=== PATIENT | female | born 1950 | race Caucasian/White ===

== ENCOUNTER 2023-09-11 16:40 | Inpatient (IN) | payer MEDICARE, SELFPAY ==
[2023-09-11] VITALS (9 sets, daily range): BP systolic 102–146; BP diastolic 53–89; PULSE 66; BMI 41.0; BMI 40.9
--- NOTE | 2023-09-11 13:25 | ED.GENMED ---
History of Present Illness
General
Chief Complaint: Breathing Problem
Source: patient
Exam Limitations: none
Time Seen by Provider: 09/11/23 13:04
Nursing documentation reviewed up to this point in time: agreed with
Travel History
Have you had any contact with someone who has COVID-19?: No
Do you have any symptoms of coronavirus? Fever > 100 degrees, chills, cough, shortness of breath, sore throat, loss of taste or smell, muscle aches, or headache?: No
History of Present Illness
History of Present Illness:
Patient is a 73-year-old female with history CHF, CAD, hypertension, hyperlipidemia, diabetes presenting to emergency department for evaluation. Patient reports worsening shortness of breath with exertion and an associated 20 pound weight gain over
the past month. She was seen by her primary care provider who increased her Lasix dose to 120 mg yesterday from 80 mg, but she continued to have a 2 pound weight increase from yesterday prompting her visit to the emergency department. She has
noticed increased swelling in her hands and feet. She also endorses a pressure in her chest that started earlier this morning but has been relatively constant since. She states it is present with rest and exertion, but slightly worse with exertion.
She denies any fever, chills, abdominal pain, urinary symptoms. She denies any sharp back pain, headache, pain in lower extremities.
Patient denies any history of smoking. Patient denies any alcohol use
Past History
Past History
ED Past Medical History: Asthma, Cancer (Lung), CVA, GERD, HTN, Hypercholesterolemia, IDDM and Other (DENNIS)
ED Past Surgical History: Cholecystectomy and Other (Lung resection)
Social History
Tobacco: Former smoker
Alcohol: None
Drug: None
Personal: Partner
Living: with family
Family History
Family History: Other (Noncontributory)
Phy Exam
Physical Exam
Physical Exam:
Vitals: Patient's vital signs are stable
General: Patient is well appearing, no acute distress
Skin: Warm and dry, no rashes or lesions
Head: Normocephalic, atraumatic
Eyes: Sclera nonicteric. EOMs intact. No nystagmus.
Cardiac: Regular rate and rhythm, no murmurs.
Pulm: Acceptable work of breathing, diminished breath sounds at bases, no wheezing, rales, rhonchi; O2 saturation 97 on room air
Abdomen: No abdominal tenderness, mild distention.
Extremities: No evidence of cyanosis; very mild nonpitting edema bilateral lower extremities, DP pulses palpable and equal bilaterally
Neuro: AAOx3. CN II-XII intact. No focal neurologic deficits.
Psychiatric: Normal affect.
Scores
Heart Failure Risk
Heart Failure Risk Score: Yes
History of Stroke or TIA: No
History of intubation for respiratory distress: No
Heart rate on ED arrival >/= 110: No
SaO2 <90% on arrival on room air: No
HR >/=110 during 3min walk test (or too ill to perform test): No
ECG has acute ischemic changes: No
Urea >/=12mmol/L (BUN 33.6mg/dL): No
Serum CO2>/=35mmol/L: No
Troponin I or T elevated to [place] Level (0.4mg/dL): No
NT-proBNP >/=5,000ng/L (5,000pg/ml): No
HF Risk Score: 0
Admission Status: LOW RISK 2.8% Consider discharge to home with f/u visit to PCP/Route Agent
Heart Score for Chest Pain Patients
STEMI patient?: No
History: Moderately Suspicious
ECG: Normal
Age: >/= 65 years
Risk Factors: >/= 3 Risk Factors or History of CAD
Troponin: >1 - <3 x Normal Limit
Heart Score for Chest Pain Patients: 6
Heart Score Risk: 20.3% MACE over next 6 weeks
Course
Orders/Labs/Results
Orders:
Orders
09/11/23 12:50
Electrocardiogram (*1) Urgent
Reason for Study: Chest Pain
Cardiac Monitoring- Treatment ONCE
EKG- Treatment ONCE
IV Insert/Care/Rem.- Treatment PRN
O2 Therapy [RESP] Urgent
Titrate/Wean O2 to maintain O2 sat greater than (%): 90
Special Instructions: Maintain sats >/=90%
Pulse Ox/spot Check [RESP] Urgent
Quantity: 1
Special Instructions: ON ROOM AIR
09/11/23 13:15
Complete Blood Count/With Diff Urgent
Comprehensive Metabolic Panel Urgent
NT-proBNP Urgent
Comment: ADDED
Troponin I Urgent
09/11/23 13:22
Add On- LAB Urgent
Tests Added?: pro-BNP
CR Chest - 2 Views Urgent
Comment:
Reason For Exam: dyspnea on exertion, weight gain, chest pain
09/11/23 14:47
Troponin I Urgent
09/11/23 14:49
Consult Cardiology [CARDIOLOGY CONSULT] Urgent
Consulting Provider: Maximo Singh
Was physician already notified: Yes
09/11/23 Dinner
Cholesterol Lowering
At Your Request: Full Participation
Cholesterol Lowering: Sodium, 2 Gram
09/11/23 15:20
Furosemide [Lasix] 40 mg IV NOW STA
09/11/23 15:21
Echo 2D MMode Color/Doppler Routine
Reason for Study: CHF, CP
09/11/23 16:30
Admit/Transfer Patient As Directed
Co-Sign Provider:
Level of Care: Inpatient admission
Assign to:: IVU
Physician / Group: alberto
Diagnosis: CHF exacerbation, possible NSTEMI
Reason for Hospitalization: CHF exacerbation, possible NSTEMI
Expected length of stay greater than two midnights?: Yes
ELOS- Estimated Length of Stay in days: 2
I certify the patient meets the requirements for IP care: Yes
09/11/23 16:31
Code Status As Directed
Resuscitation Status: Full Code
09/11/23 20:00
Dextrose 50%-Water [Dextrose 50% Syringe] 12.5 grams IV [id number] PRN
Glucagon [GlucaGen] 1 mg IM PRN PRN
Heparin 5,000 units SC Q12
Lisinopril [Zestril] 5 mg PO QPM
Nitroglycerin Sublingual [Nitrostat (Sublingual)] 0.4 mg SL [id number] PRN
09/11/23 20:00
Activity As Directed
Activity Level: As Tolerated
Bedside Glucose Monitoring As Directed
Frequency: AC&HS
Additional Instructions:: Change to q6h if pt on TPN, tube feeding or not eating
I/O [Intake/ Output] As Directed
Frequency: q12h
Vital Signs As Directed
Frequency: Per unit guidelines
Weight As Directed
Frequency: Daily
DX Deep Vein Thrombosis Video Routine
09/11/23 20:35
Cardiovascular Evaluation Routine
Troponin I Q6H
09/11/23 21:00
Metoprolol [Lopressor] 12.5 mg PO BID
09/11/23 22:00
Atorvastatin [Lipitor] 40 mg PO HS
Gabapentin [Neurontin] 600 mg PO TID
Pramipexole [Mirapex] 0.25 mg PO HS
09/12/23 02:00
Troponin I Q6H
09/12/23 06:00
Complete Blood Count/With Diff IN AM
Comprehensive Metabolic Panel IN AM
Glycohemoglobin (HgbA1c) IN AM
09/12/23 07:30
Insulin Aspart Corrective Low [Novolog Flexpen-Low Resistance] See Protocol SC AC
Insulin Aspart Pen [Novolog Flexpen] 30 units SC AC
09/12/23 08:00
Troponin I Q6H
Aspirin Chewable [Low Strength Aspirin] 81 mg PO DAILY
Clopidogrel Bisulfate [Plavix] 75 mg PO DAILY
Escitalopram Oxalate [Lexapro] 20 mg PO DAILY
Furosemide [Lasix] 40 mg IV BID AT 0800,1600
ISOSORBIDE MONOnitrate ER [Imdur (Extended Release)] 60 mg PO DAILY
Non-Formulary Item See Dose Instructions PO DAILY
Abnormal Lab Results
09/11/23 09/11/23
13:15 14:47
RDW 15.1 H %
(11.5-14.5)
MPV 10.8 H fL
(7.4-10.4)
Absolute Monos (auto) 0.8 H 10^3/uL
(0.1-0.6)
BUN 19 H mg/dl
(7-17)
Glucose 179 H mg/dl
(70-99)
Alkaline Phosphatase 158 H U/L
(38-126)
Troponin I 0.053 H* D ng/ml
09/11/23 13:15
09/11/23 13:15
Vital Signs
Initial and Last Documented VS:
Initial Vital Signs
Temp Pulse Resp BP Pulse Ox
98.6 F 70 16 102/53 97
09/11/23 12:50 09/11/23 12:50 09/11/23 12:50 09/11/23 12:50 09/11/23 12:50
Last Documented Vital Signs
Temp Pulse Resp BP Pulse Ox
98.0 F 72 20 130/63 96
09/11/23 20:07 09/11/23 21:40 09/11/23 20:07 09/11/23 21:40 09/11/23 20:07
MDM/Problems Addressed
Differential Diagnosis Includes:
Not limited to: CHF exacerbation, anemia, pneumonia, COPD, bronchitis, pulmonary embolism, ACS
MDM/Problems Addressed:
Patient is 73-year-old female presenting for evaluation of shortness of breath, recent weight gain, and acute onset chest pressure earlier today. Recent increase in Lasix with very continued increase in weight. Chest pain is present both at rest
and exertion, but slightly worse with exertion. Patient does report pain is similar to when she needed prior stent. Vital signs are stable, patient with O2 saturation of 97 on room air. Exam as above. Somewhat diminished breath sounds at bases,
but otherwise clear. Will check basic labs, troponin, proBNP, chest x-ray. EKG obtained in triage shows normal sinus rhythm without any signs of acute ischemia. Given patient's comparison to prior [facility] consult cardiology for input.
Labs noted. No clinically significant abnormalities. Initial troponin negative. proBNP of 526�not indicative of acute heart failure exacerbation. Chest x-ray shows no evidence of pulmonary edema or acute disease. Will plan to repeat troponin
given acute onset chest pain this morning.
Spoke with cardiology, Dr. Arguello, who evaluated patient at bedside. They recommend admission for continued monitoring and possible cardiac catheterization on Thursday. Repeat troponin has elevated to 0.053. Patient will be admitted to hospitalist
service, cardiology will follow-up. Discussed with hospitalist.
Chronic conditions affecting care:
CAD status post stents, CHF, hypertension, hyperlipidemia,
Acute Exacerbation and/or Progression of Chronic Illness:
Chest pain secondary to possible NSTEMI
*Radiology
Radiology exam reviewed: preliminary read by ED provider and radiology read reviewed
*Pulse Oximetry
Patient hypoxic: no
*EKG
Interpreted by ED Provider?: Yes
EKG Intrepretation Date: 09/11/23
Interpretation: normal
Comparison EKG: no changes
Heart Rate: 67
Rate: normal
Rhythm: sinus
Ischemia: no ischemia
*Critical Care Note
Total Time (30-74mins, 75-104mins- exclusive of procedures): Not Applicable
Data Reviewed
Review of Other/Old Records Reveals: Labs and Records
Source: previous hospital records
Patient Management
Discussion with other providers: Relays Draftsperson (Cardiology-Dr. Singh)
Escalation/DeEscalation of care consider admission/obs:
Admit to hospitalist for further troponin trending and likely cardiac catheterization on Thursday
ED Attending Note
-
Portions of this chart may have been created with voice recognition software.� Occasional wrong word or��sound alike� substitutions may have occurred due to the inherent limitations of voice recognition software.
Discharge Plan
Departure
Patient Disposition: Admit
Date of Disposition: 09/11/23
Time of Disposition: 15:37
Presentation/result/management discussed w/ accepting MD/DO: Hospitalist
Discharge Problem:
Elevated troponin, Chest pain
Interventions
Interventions:
*Risk Screen - Suicide Last Done: 09/11/23 12:59
*General Assessment Last Done: 09/11/23 12:59
*Neglect/Abuse Screening Last Done: 09/11/23 12:59
ED- Fall Risk Assessment Last Done: 09/11/23 13:01
*ED COVID-19 Vaccine History Last Done: 09/11/23 12:59
*Nursing Disposition Last Done: 09/11/23 20:58
ED- Cardiac Assessment Last Done: 09/11/23 13:01
ED- Pulmonary Assessment Last Done: 09/11/23 13:01
Discharge Date and Time
Discharge Date/Time: 09/11/23 20:59
[2023-09-11 13:30] LABS: % Basophils 0.8 % (0-2); % Eosinophils 3.5 % (0-6); % Immature Granulocytes 0.3 % (0-0.5); % Lymphocytes 29.7 % (20.5-51.1); % Monocytes 7.8 % (1.7-9.3); % Neutrophils 57.9 % (42.2-75.2); Absolute Basophils 0.1 10^3/uL (0-0.2); Absolute Eosinophils 0.4 10^3/uL (0-0.7); Absolute Lymphocytes 3.2 10^3/uL (1.2-3.4); Absolute Monocytes 0.8 10^3/uL (0.1-0.6); Absolute Neutrophils 6.3 10^3/uL (1.4-6.5); Hematocrit 40.6 % (37.0-47.0); Hemoglobin 13.7 g/dL (12.0-16.0); Mean Corp Hgb Conc. 33.7 g/dL (33.0-37.0); Mean Corpuscular Hgb 29.8 pg (27.0-31.0); Mean Corpuscular Volume 88.3 fL (81.0-99.0); Mean Platelet Volume 10.8 fL (7.4-10.4); Nucleated Red Blood Cells % 0 %; Platelet Count 241 10^3/uL (130-400); Red Cell Dist. Width 15.1 % (11.5-14.5); White Blood Cell Count 10.8 10^3/uL (4.8-10.8)
[2023-09-11 13:42] LABS: ALT (SGPT) 28 U/L (0-35); AST (SGOT) 29 U/L (14-36); Albumin 4.4 g/dl (3.5-5.0); Alkaline Phosphatase 158 U/L (38-126); Blood Urea Nitrogen 19 mg/dl (7-17); Calcium 9.1 mg/dl (8.4-10.2); Carbon Dioxide 29 mmol/L (22-30); Chloride 101 mmol/L (98-107); Estimated Creatinine Clearance 69 ml/min; Glucose 179 mg/dl (70-99); Sodium 137 mmol/L (135-145); Total Bilirubin 0.6 mg/dl (0.2-1.3); Total Protein 7.3 g/dl (6.3-8.2); eGFR > 60.00
[2023-09-11 13:56] LABS: NT-proBNP 526 pg/ml; Troponin I < 0.012 ng/ml
--- NOTE | 2023-09-11 15:20 | CON.CAR ---
Addendum entered and electronically signed by Maximo Singh MD 09/11/23 17:49:
I saw and examined the patient.
The Meat Loiner's note was reviewed and I agree with the note.
Comment:
GEN: No distress, awake, Ox3
HEENT: supple, anicteric, mmm
LUNGS: CTA, no wheezes/rales
CV: Reg, S1/S2, 1/6 syst LSB, no gallop
ABD: soft, BS+, NT/ND
EXT: No edema
NEURO: Gross non-focal
SKIN: No rash
Plan:
She is well-known to me with a past medical history of chronic heart failure with preserved ejection fraction, coronary artery disease, previous RCA dissection status post PCI, diabetes, hypertension and COPD. She has had progressive weight gain of
approximately 20 pounds over the past several months with worsening chest discomfort with exertion. Symptoms were worse this morning. At recent office visit her Imdur dose was increased from 30 mg daily to 60 mg daily and a Lexiscan nuclear stress
was scheduled as an outpatient but her symptoms have progressed. Her Lasix was also increased from 40 mg twice daily to 60 mg twice daily. She says she has had some improvement with these medications but her symptoms continue to progress. proBNP
526 and troponin is rising to 0.053.
I had a lengthy discussion with her. Her symptoms seem concerning and her troponin is rising. Her EKG has nonspecific T wave abnormalities.
We agreed that she should come into the hospital and start Lasix 40 mg IV twice daily to try to diurese her. Creatinine is currently normal. Will need to follow.
I would recommend proceeding with a right and left heart catheterization on Thursday after diuresis.
Continue medical therapy for coronary artery disease. Continue aspirin, Plavix, atorvastatin, Imdur, metoprolol, and lisinopril.
We may need to further titrate her metoprolol. Resting heart rate currently is in the 60-70 range.
Original Note:
Consultation
Consultation Request
Date/Time Consultation Performed: 09/11/23
Requesting Provider: Tamara Real PA-C
Performing Provider: Xin Cerda PA-C for Dr. Singh
Reason for Consultation: CHF, CP
Medical History
-
Chief Complaint: CP, swelling
History of Present Illness:
Patient is a 73-year-old female with past medical history of chronic heart failure with preserved EF, CAD with most recent cath 01/2022 with moderate to severe diffuse coronary artery calcification at least 50% proximal RCA stenosis with got induced
proximal RCA dissection status post PCI, diabetes type 2, hypertension, hyperlipidemia, history of lung cancer, COPD/asthma who presents to [facility] for evaluation of weight gain, swelling, and chest discomfort. She states that over the
last month if accurate she has gained approximately 20 pounds. She states on 08/10 she was 188 pounds by her home scale. She also reports worsening lower extremity and upper extremity swelling. She reports orthopnea and dyspnea on exertion. She
also reports chest discomfort with exertion, including things like getting dressed in the morning. She was seen last week in the office and had reported some of the symptoms and her Imdur dose was increased from 30 a day to 60 a day and she was
scheduled for lexiscan stress test on 10/08/23. She was then seen by her primary care physician and her Lasix was increased from 40 mg twice daily to 60 mg twice daily. She reports with this she had some improvement in swelling, however gained
another 2 pounds overnight and she came into the emergency room for further evaluation. EMS gave her nitro x 1 en route, which she states did help her chest discomfort. proBNP 526. Cardiology consulted for evaluation
PMH:
CAD with mod to severe diffuse coronary artery calcification, at least 50% prox RCA stenosis, guide induced prox RCA dissection s/p PCI by cath 01/29/22
Iron def anemia
chronic HFpEF
DM2
Peripheral neuropathy
Diabetic retinopathy
HTN
HLD
h/o lung cancer s/p RML and RLL resection in 07/1999
former tobacco use
COPD/asthma
DENNIS on CPAP
depression/anxiety
GERD
Calcific pancreatitis
essential tremor
PVD RLE
Obesity
Past Medical History
Past Medical History: Other (in HPI)
Social History
Tobacco: Former Smoker
Employment: Retired
Family History
Family History: CAD, Cancer, Hypertension and Other (COPD)
Allergies / Home Medications
Allergy/AdvReac Type Severity Reaction Status Date / Time
azithromycin Allergy See Verified 07/10/22 15:45
comments
codeine Allergy vomiting Verified 07/10/22 15:45
omeprazole Allergy fever and Verified 07/10/22 15:45
joint aches
propranolol Allergy Shortness Verified 07/10/22 15:45
of
Breath/tight
chest, SOB
�Medication �Instructions �Recorded �Confirmed �Type
escitalopram oxalate 20 mg tablet 20 mg PO DAILY Mental health 11/30/15 01/28/22 History
dexlansoprazole 30 mg 60 mg PO DAILY Gastrointestinal 04/04/17 01/28/22 History
capsule,biphase delayed release issue
(Dexilant)
albuterol sulfate 90 mcg/actuation 2 puff inhalation R Q6HPRN PRN sob 08/01/21 01/28/22 History
aerosol inhaler
aspirin 81 mg chewable tablet 81 mg PO DAILY Blood clot 08/01/21 01/28/22 History
prevention/tx
baclofen 10 mg tablet 10 mg PO [id number] PRN muscle spasm 08/01/21 01/28/22 History
lisinopril 5 mg tablet 5 mg PO DAILY Blood pressure 08/01/21 01/28/22 History
primidone 50 mg tablet 100 mg PO HS Neurological Condition 08/01/21 01/28/22 History
furosemide 40 mg tablet 40 mg PO BID AT 0800,1600 #60 tabs 08/09/21 01/28/22 Rx
gabapentin 400 mg capsule 400 mg PO TID Pain 09/19/21 01/28/22 History
albuterol sulfate 90 mcg/actuation 2 puff inhalation 6XD 01/28/22 01/28/22 History
aerosol inhaler (ProAir HFA) Lung/breathing issues
atorvastatin 40 mg tablet 40 mg PO HS High cholesterol 01/28/22 01/28/22 History
cholecalciferol (vitamin D3) 25 25 mcg PO DAILY Supplement 01/28/22 01/28/22 History
mcg (1,000 unit) tablet (Vitamin
D3)
fluticasone furoate 200 1 inh inhalation DAILY 01/28/22 01/28/22 History
mcg-vilanterol 25 mcg/dose Lung/breathing issues
inhalation powder (Breo Ellipta)
nitroglycerin 0.4 mg sublingual 0.4 mg sublingual Q5-15M PRN chest 01/28/22 01/28/22 History
tablet pain
pramipexole 0.25 mg tablet 0.25 mg PO DAILY Neurological 01/28/22 01/28/22 History
Condition
primidone 50 mg tablet 50 mg PO DAILY Neurological 01/28/22 01/28/22 History
Condition
vitamin B12 2,500 mcg-folic acid 1,000 tab PO DAILY Supplement 01/28/22 01/28/22 History
400 mcg disintegrating tablet
Insulin Glargine Lantus As Directed mls/hr SC HS Diabetes 02/01/22 Rx
[Lantus] 55 units
clopidogrel 75 mg tablet 75 mg PO DAILY Blood clot 02/01/22 Rx
prevention/tx #30 tabs
empagliflozin 10 mg tablet 10 mg PO DAILY Heart Failure #30 02/01/22 01/28/22 Rx
(Jardiance) tabs
insulin aspart U-100 100 unit/mL 16 unit (0.16 mL) SC TID Diabetes 02/01/22 01/28/22 Rx
subcutaneous solution (Novolog #0 mL
U-100 Insulin aspart)
isosorbide mononitrate 30 mg 30 mg PO DAILY Heart 02/01/22 01/28/22 Rx
tablet,extended release 24 hr disease/condition #30 tabs
metoprolol tartrate 25 mg tablet 25 mg PO BID Heart 02/01/22 Rx
disease/condition #60 tabs
Review of Systems
-
History Source: Patient and Family
All other systems: Negative unless noted
Physical Exam
Vital Signs
Temp Pulse Resp BP Pulse Ox
98.6 F 70 16 102/53 97
09/11/23 12:50 09/11/23 12:50 09/11/23 12:50 09/11/23 12:50 09/11/23 13:01
Lab Results
09/11/23 13:15
09/11/23 13:15
Troponin I < 0.012 ng/ml 09/11/23 13:15
Fqa-[id number] Pept 526 pg/ml 09/11/23 13:15
Physical Exam
General: No Apparent Distress, Comfortable and Other (obese)
HEENT: Normocephalic, Anicteric and Moist Mucous Membranes
Respiratory: Crackles and Non Labored Respirations
Cardiac: S1/S2 and Regular Rhythm
GI: Soft, Non Tender, Non Distended and Normal Bowel Sounds
Musculoskeletal: No Clubbing, No Cyanosis and Edema (trace of B/L LE)
Skin: Warm and Dry
Neuro: AO x 3
Impression / Plan
-
Primary Sign Installer: Dr. Singh
Assessment:
Presentation with chest discomfort, UE/LE swelling, ARCOS, weight gain
Acute on chronic HFpEF
Elevated troponin
CAD with mod to severe diffuse coronary artery calcification, at least 50% prox RCA stenosis, guide induced prox RCA dissection s/p PCI by cath 01/29/22
DM2
Peripheral neuropathy
Diabetic retinopathy
HTN
HLD
Iron def anemia
h/o lung cancer s/p RML and RLL resection in 07/1999
former tobacco use
COPD/asthma
DENNIS on CPAP
depression/anxiety
GERD
Calcific pancreatitis
essential tremor
PVD RLE
Obesity
ECHO 01/2022: EF 65 to 70%, no regional wall motion abnormalities noted, no significant valvular disease
Plan:
-Patient presents with symptoms concerning for acute on chronic heart failure. She has had recent escalation in her diuretics with continued weight gain. proBNP 526. Chest x-ray with prior lobectomy without acute superimposed processes noted.
-will give dose of IV lasix 40mg now. would plan to place on 40mg IV lasix BID on admission. she was taking 40mg po lasix BID until yesterday when dose was increased to 60mg BID by PCP
-CHF education. she reports no recent changes in diet to explain reported 20 pound weight gain in last month. states weight 08/10 was 188 pounds.
-also reports chest discomfort with exertion. last cath from 01/2022 with results as above, resulted in RCA PCI. EKG SR with NSSTS. initial trop negative but repeat 0.053, trend to peak. nitro x1 by EMS improved symptoms. would plan for L/RHC on
Wednesday 09/13. OP imdur was increased from 30 to 60mg daily at office visit last week. will cancel OP sheree scheduled for 10/07
-continue asa, plavix, statin
-continue imdur, jardiance, lopressor, lisinopril as BP allows
-check echo, last from 01/2022 with results as above
-check CVE, hgbA1c
-d/w patient and sister at bedside
Data Reviewed
-
EKG: Tracing Personally Visualized and interpreted
Radiology: Report Reviewed by me
Medical Tests (Nuc Med, Echo etc): Report Reviewed by me
Labs: Labs Reviewed by me
Old Records: Reviewed
[2023-09-11 15:29] LABS: Troponin I 0.053 ng/ml
[2023-09-11] MEDS: LASIX 40 MG IV (16:12)
--- NOTE | 2023-09-11 16:34 | HPS.HSE ---
Family Physician
-
Family Physician: Jeannine Marte
Chief Complaint
-
chest pain
History of Present Illness
73-year-old female past medical history of coronary artery disease, HFpEF, hypertension, hyperlipidemia, diabetes, peripheral neuropathy, diabetic retinopathy, COPD, obstructive sleep apnea, lung cancer status post right middle lobe lobectomy and
right lower lobe lobectomy in 1999, lumbar degenerative disease, chronic anemia/iron deficiency, obesity, anxiety/depression, GERD, essential tremor, peripheral vascular disease, presenting for weight gain, lower extreme edema and chest discomfort.
Patient gained 25 pounds in the past month. Patient has shortness of breath when she lies flat and with exertion over the past month. She saw Dr. Singh last week who increased Imdur from 30-60. Patient saw her primary care physician who
increased her Lasix from 40 twice daily to 60 twice a day yesterday with a little bit improvement in swelling.
Today patient developed chest discomfort described as pressure. Pain occurs at rest but is worse with exertion. Pain does not radiate to arms or back or neck. Patient does have chronic cough which is slightly worse than usual and dry. Patient
denies fevers or chills.
Patient denies smoking or alcohol use.
Patient's father had history of heart attack.
Medical History
Past Medical History
Past Medical History: Reports Other (coronary artery disease, HFpEF, hypertension, hyperlipidemia, diabetes, peripheral neuropathy, diabetic retinopathy, COPD, obstructive sleep apnea, lung cancer status post right middle lobe lobectomy and right
lower lobe lobectomy in 1999, lumbar degenerative disease, chronic anemia/iron deficiency,)
Past Surgical History: Reports Other (Cholecystectomy and Other (Lung resection))
Social History
Tobacco: Non-smoker
Alcohol: None
Drug: None
Family History
Family History: Not pertinent
Allergies / Home Medications
Allergies reflects when Allergies were last updated in [employer].
Home Medications with original date entered in [employer]
Allergy/Medication List:
Allergies
Allergy/AdvReac Type Severity Reaction Status Date / Time
azithromycin Allergy See Verified 07/10/22 15:45
comments
codeine Allergy vomiting Verified 07/10/22 15:45
omeprazole Allergy fever and Verified 07/10/22 15:45
joint aches
propranolol Allergy Shortness Verified 07/10/22 15:45
of
Breath/tight
chest, SOB
Home Medications
escitalopram oxalate 20 mg tablet 20 mg PO DAILY Mental health 11/30/15
dexlansoprazole 30 mg capsule,biphase delayed release (Dexilant) 60 mg PO DAILY Gastrointestinal issue 04/04/17
aspirin 81 mg chewable tablet 81 mg PO DAILY Blood clot prevention/tx 08/01/21
lisinopril 5 mg tablet 5 mg PO QPM Blood pressure 08/01/21
atorvastatin 40 mg tablet 40 mg PO HS High cholesterol 01/28/22
nitroglycerin 0.4 mg sublingual tablet 0.4 mg sublingual [id number] PRN chest pain 01/28/22
pramipexole 0.25 mg tablet 0.25 mg PO HS Neurological Condition 01/28/22
clopidogrel 75 mg tablet 75 mg PO DAILY Blood clot prevention/tx #30 tabs 02/01/22
furosemide 40 mg tablet 40 mg PO BID 09/11/23
gabapentin 600 mg tablet 600 mg PO TID 09/11/23
insulin aspart U-100 100 unit/mL subcutaneous solution (Novolog U-100 Insulin aspart) 30 unit SC TID Diabetes 09/11/23
insulin glargine 100 unit/mL (3 mL) subcutaneous pen (Lantus Solostar U-100 Insulin) 45 unit SC QPM 09/11/23
isosorbide mononitrate 30 mg tablet,extended release 24 hr 60 mg PO DAILY Heart disease/condition 09/11/23
metoprolol tartrate 25 mg tablet 12.5 mg PO BID Heart disease/condition 09/11/23
Review of Systems
-
History Source: Patient
A 12 point ROS was completed and negative except as noted: Yes
Constitutional: Reports No Symptoms
EENT: Reports No Symptoms
Respiratory: Reports See HPI
Cardiac: Reports See HPI
Abdomen/GI: Reports No Symptoms
: Reports No Symptoms
Musculoskeletal: Reports No Symptoms
Skin: Reports No Symptoms
Neurological: Reports No Symptoms
Endocrine: Reports No Symptoms
Hematologic/Lymphatic: Reports No Symptoms
Psych: Reports No Symptoms
Physical Exam
Vital Signs
Vital Signs
Temp Pulse Resp BP Pulse Ox
98.6 F 66 18 102/53 96
09/11/23 12:50 09/11/23 13:30 09/11/23 13:30 09/11/23 12:56 09/11/23 13:30
Physical Exam
General: Well Developed, Well Nourished and No Apparent Distress
HEENT: NormoCephalic, Moist mucous membranes and Atraumatic
Respiratory: Clear
Cardiac: S1/S2, Regular Rhythm and Peripheral Edema; No Murmur or Rub
GI: Soft, Non Tender, Non Distended and Normal Bowel Sounds; No Organomegaly
Rectal: Deferred by Provider
Musculoskeletal: No Clubbing, No Cyanosis and No Edema
Skin: No Rash
Neuro: Nonfocal/grossly intact
Laboratory Results
-
09/11/23 13:15
09/11/23 13:15
Laboratory Results
Total Bilirubin 0.6 mg/dl (0.2-1.3) 09/11/23 13:15
AST 29 U/L (14-36) 09/11/23 13:15
ALT 28 U/L (0-35) 09/11/23 13:15
Alkaline Phosphatase 158 U/L (38-126) H 09/11/23 13:15
Troponin I 0.053 ng/ml H* D 09/11/23 14:47
Data Reviewed
-
Lab Data: Labs Reviewed by me
Old Records: Reviewed
Impression/Plan
-
IMPRESSION:
PLAN:
# Acute on chronic HFpEF exacerbation
-Chest x-ray shows no acute process
-Cardiac BNP of 526
-Check I's and O's, daily weights
-40 IV Lasix BID
-Check echo
-Cardiology following
# Chest pain possibly secondary to NSTEMI
# History of coronary artery disease with at least 50% proximal RCA stenosis
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
-Troponin initially negative, second is 0.053, continue to trend until peak
-EKG shows normal sinus rhythm, low voltage QRS
-Continue aspirin, Plavix, statin
-Continue Imdur, Jardiance, Lopressor, lisinopril
-Check A1c lipid panel
-Cardiology planning on left/right heart catheterization on Thursday
Essential hypertension
-Continue lisinopril, metoprolol
Hyperlipidemia
-Continue statin
Type 2 diabetes
-Continue Lantus 45 units at night
-Continue 30 units NovoLog 3 times daily
-Insulin sliding scale
Peripheral neuropathy
-Continue gabapentin
Diabetic retinopathy
COPD
Obstructive sleep apnea
Lung cancer status post RML lobectomy, RLL lobectomy
Lumbar degenerative disease
Chronic anemia/iron deficiency anemia
Obesity
Anxiety/depression
-Continue Lexapro
GERD
-Continue PPI
Essential tremor
-Continue pramipexole
Peripheral vascular disease
Former smoker
Full code
DVT prophylaxis�heparin
Cardiac diet
[2023-09-11 20:53] LABS: Glucose - Point of Care 320 mg/dl (70-99)
[2023-09-11 20:57] LABS: HDL Cholesterol 43 mg/dl; LDL Cholesterol, Calculated 30 mg/dl; Total Cholesterol 114 mg/dl (50-199); Triglyceride 208 mg/dl (10-149); Very Low Density Lipoprotein 41 mg/dl (0-30)
[2023-09-11 21:10] LABS: Troponin I < 0.012 ng/ml
[2023-09-11] MEDS: NEURONTIN 600 MG PO (21:36)
[2023-09-11] MEDS: LOPRESSOR 12.5 MG PO (21:39)
[2023-09-11] MEDS: LIPITOR 40 MG PO (21:40)
[2023-09-11] MEDS: ZESTRIL 5 MG PO (21:40)
[2023-09-11] MEDS: MIRAPEX 0.25 MG PO (21:41)
[2023-09-11] MEDS: HEPARIN 5000 UNITS SC (21:42)
[2023-09-11] MEDS: LANTUS 0.450000000000000011 UNITS SC (21:42)
[2023-09-12] VITALS (10 sets, daily range): BP systolic 96–141; BP diastolic 54–86; BMI 38.3
--- NOTE | 2023-09-12 01:25 | PTCARENOTE ---
Pt admitted into 2245- ambulated to the bed as self- POC discussed- pt verbalized understanding. describes chest pressure- not pain that is worse with exertion. VSS. SR 60s- 70s on the monitor. Has a chronic dry cough- CHF booklet provided. CPAP
ordered via house [employer]. plan for cath on thursday.
[2023-09-12] MEDS: NITROSTAT (SUBLINGUAL) 0.400000000000000022 MG SL ×4 (03:52→22:46)
[2023-09-12 04:08] LABS: % Basophils 0.7 % (0-2); % Immature Granulocytes 0.4 % (0-0.5); % Lymphocytes 32.6 % (20.5-51.1); % Monocytes 7.4 % (1.7-9.3); % Neutrophils 55.9 % (42.2-75.2); Absolute Basophils 0.1 10^3/uL (0-0.2); Absolute Eosinophils 0.3 10^3/uL (0-0.7); Absolute Lymphocytes 3.6 10^3/uL (1.2-3.4); Absolute Monocytes 0.8 10^3/uL (0.1-0.6); Absolute Neutrophils 6.1 10^3/uL (1.4-6.5); Hematocrit 40.3 % (37.0-47.0); Mean Corp Hgb Conc. 32.3 g/dL (33.0-37.0); Mean Corpuscular Hgb 29.2 pg (27.0-31.0); Mean Corpuscular Volume 90.6 fL (81.0-99.0); Mean Platelet Volume 10.6 fL (7.4-10.4); Nucleated Red Blood Cells % 0 %; Platelet Count 195 10^3/uL (130-400); Red Blood Cell Count 4.45 10^6/uL (4.20-5.40); Red Cell Dist. Width 14.9 % (11.5-14.5)
[2023-09-12 04:33] LABS: ALT (SGPT) 22 U/L (0-35); AST (SGOT) 27 U/L (14-36); Alkaline Phosphatase 133 U/L (38-126); Blood Urea Nitrogen 20 mg/dl (7-17); Calcium 9.3 mg/dl (8.4-10.2); Carbon Dioxide 27 mmol/L (22-30); Chloride 99 mmol/L (98-107); Estimated Creatinine Clearance 69 ml/min; Glucose 185 mg/dl (70-99); Potassium 3.9 mmol/L (3.5-5.1); Sodium 136 mmol/L (135-145); Total Bilirubin 0.9 mg/dl (0.2-1.3); Total Protein 6.8 g/dl (6.3-8.2); eGFR > 60.00
[2023-09-12 04:41] LABS: Troponin I < 0.012 ng/ml
--- NOTE | 2023-09-12 05:48 | PTCARENOTE ---
~ 0350 pt rang with complaints of 9/10 'chest Pressure' and L shoulder tightness. vital signs and EKG obtained. sublingual nitro given x2 with positive relief- down to a 4/10 which she describes as tolerable for her. 2L NC applied- for comfort.
samuel ALEJANDRO made aware- continuing to monitor at this time.
--- NOTE | 2023-09-12 06:56 | W.PN.HOSP.TC ---
Today's Communication/Plan
-
Continue IV diuresis
Repeat EKG
Repeat another troponin after this morning's recurrent chest pain
If develops elevation troponin heparin drip? Defer to cardiology
Assessment / Plan
Assessment / Plan
73-year-old female past medical history of coronary artery disease, HFpEF, hypertension, hyperlipidemia, diabetes, peripheral neuropathy, diabetic retinopathy, COPD, obstructive sleep apnea, lung cancer status post right middle lobe lobectomy and
right lower lobe lobectomy in 1999, lumbar degenerative disease, chronic anemia/iron deficiency, obesity, anxiety/depression, GERD, essential tremor, peripheral vascular disease, presenting for weight gain, lower extreme edema and chest discomfort.
Patient gained 25 pounds in the past month. Patient has shortness of breath when she lies flat and with exertion over the past month. She saw Dr. Singh last week who increased Imdur from 30-60. Patient saw her primary care physician who
increased her Lasix from 40 twice daily to 60 twice a day yesterday with a little bit improvement in swelling.
Today patient developed chest discomfort described as pressure. Pain occurs at rest but is worse with exertion. Pain does not radiate to arms or back or neck. Patient does have chronic cough which is slightly worse than usual and dry. Patient
denies fevers or chills.
Patient denies smoking or alcohol use.
Patient's father had history of heart attack.
Patient overnight after admission developed at around 4 AM similar pressure-like sensation of her chest at this time now radiating to her left shoulder and left arm relieved with 2 to nitroglycerin sublingual
# Acute on chronic HFpEF exacerbation
-Chest x-ray shows no acute process
-Cardiac BNP of 526
-Check I's and O's, daily weights
-40 IV Lasix BID
-Check echo does not show any wall motion abnormality and no changes from prior of 2021
-Cardiology following
# Chest pain possibly secondary to NSTEMI
# History of coronary artery disease with at least 50% proximal RCA stenosis
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
-Troponin initially negative, second is 0.053, 2 subsequent week now again negative
-EKG shows normal sinus rhythm, low voltage QRS/will repeat this morning
-Continue aspirin, Plavix, statin
-Continue Imdur, Jardiance, Lopressor, lisinopril
-Check A1c lipid panel
-Cardiology planning on left/right heart catheterization on Thursday
Essential hypertension
-Continue lisinopril, metoprolol
Hyperlipidemia
-Continue statin
Type 2 diabetes
-Continue Lantus 45 units at night
-Continue 30 units NovoLog 3 times daily
-Insulin sliding scale
Peripheral neuropathy
-Continue gabapentin
Diabetic retinopathy
COPD
Obstructive sleep apnea
Lung cancer status post RML lobectomy, RLL lobectomy
Lumbar degenerative disease
Chronic anemia/iron deficiency anemia
Obesity
Anxiety/depression
-Continue Lexapro
GERD
-Continue PPI
Essential tremor
-Continue pramipexole
Peripheral vascular disease
Former smoker
Full code
DVT prophylaxis�heparin
Cardiac diet
Anticipated Discharge: 24 - 48 hours
Subjective/Interval History
-
Date of Service: September 12, 2023
Had episode of chest pressure and radiating to the left shoulder and left arm and around 4 AM this morning relieved by 2 separate nitroglycerin SL/presently comfortable admits to less peripheral edema with diuresis yesterday afternoon
Objective Data
-
Labs:
Laboratory Results
09/12/23
03:59
WBC 11.0 H
Hgb 13.0
Hct 40.3
Plt Count 195
Sodium 136
Potassium 3.9
Chloride 99
Carbon Dioxide 27
BUN 20 H
Creatinine 0.8
Glucose 185 H
Calcium 9.3
Total Bilirubin 0.9
AST 27
ALT 22
Alkaline Phosphatase 133 H
Vital Signs:
Vital Signs
Temp Pulse Resp BP Pulse Ox
97.6 F 65 18 120/66 98
09/12/23 05:44 09/12/23 05:00 09/12/23 05:44 09/12/23 04:15 09/12/23 05:44
Review of Systems
-
History Source: Patient
Respiratory: Reports No Symptoms
Cardiac: Reports Chest Pain (Described as pressure to the left shoulder and left arm prior to coming in was only describing it to the chest as pressure)
Abdomen/GI: Reports No Symptoms
Physical Exam
-
General: Obese
HEENT: Normocephalic
Respiratory: Crackles
Cardiac: Regular Rhythm
GI: Soft, Nontender and Nondistended
Skin: Warm
Neuro: Awake, Alert, Oriented, AO x 3 and No Motor Deficits
Data Reviewed
-
Total Time Spent with Patient (in minutes): 56
Labs: Labs Reviewed by me (Second troponin was elevated after initial normal at 0.053 subsequent all normal)
--- NOTE | 2023-09-12 08:25 | W.PN.CARDCBS ---
Addendum entered and electronically signed by Sobeida Jacques MD 09/12/23 10:01:
I saw and examined the patient.
The Tar Boiler's note was reviewed and I agree with the note.
Comment: General: Well developed, well nourished in NAD.
Neck: Difficult to assess JVD
Heart: Regular rate and rhythm distant heart sounds
Lungs: Coarse anterior breath sounds
Extremities: No clubbing, cyanosis or edema bilaterally.
Neuro: Grossly nonfocal, awake, alert and oriented x3.
Cardiac catheterization 01/29/2022 3 Vessel coronary calcification
LEFT MAIN: Medium to large caliber vessel with mild diffuse atherosclerotic disease. Left main gives rise to a medium caliber LAD and a small caliber left circumflex artery.
LEFT ANTERIOR DESCENDING: The LAD is a calcified vessel.� A bifurcating moderate-sized first diagonal branch arises from the proximal third of the LAD and has minor irregularities.� The mid to distal LAD has diffuse 30-50% narrowings over its course.
CIRCUMFLEX: The circumflex is a calcified small caliber nondominant vessel supplying a small caliber OM1 and terminating in a very small OM 2 with diffuse moderate atherosclerotic disease.
RIGHT CORONARY ARTERY: The right coronary artery is a dominant vessel that is moderate to heavily calcified over its course.� There is moderate diffuse atherosclerotic disease with a 50% focal stenosis in proximal to mid RCA which appeared slightly
worse compared to old cath in July 2021 especially in the straight CARDONA shot. Guide induced proximal RCA dissection status post successful PCI with one 3.0 x 24 mm Promus drug-eluting stent.
Known coronary artery disease. Chest pain at 3 AM without recurrence. Intravenous heparin started. Continue IV nitrates if recurrence. Currently on isosorbide and metoprolol.
Continue IV heparin, Plavix, aspirin.
Continue diuresis. Volume status difficult to ascertain given body habitus.
Continue aggressive risk factor modification.
Plan for right left heart catheterization on Thursday.
Original Note:
Today's Communication / Plan
-
add IV heparin
continue IV lasix
plan for R/LHC on Wednesday 09/13
Impression / Plan
-
Primary Sheet Rock Sander: Dr. Singh
Assessment:
Presentation with chest discomfort, UE/LE swelling, ARCOS, weight gain
Acute on chronic HFpEF
Elevated troponin
CAD with mod to severe diffuse coronary artery calcification, at least 50% prox RCA stenosis, guide induced prox RCA dissection s/p PCI by cath 01/29/22
DM2
Peripheral neuropathy
Diabetic retinopathy
HTN
HLD
Iron def anemia
h/o lung cancer s/p RML and RLL resection in 07/1999
former tobacco use
COPD/asthma
DENNIS on CPAP
depression/anxiety
GERD
Calcific pancreatitis
essential tremor
PVD RLE
Obesity
ECHO 01/2022: EF 65 to 70%, no regional wall motion abnormalities noted, no significant valvular disease
ECHO 09/11/23: EF 60 to 65%, grade 1 diastolic dysfunction, trace MR and TR, prominent anterior fat pad, no significant change compared to prior
Plan:
-Patient presents with symptoms concerning for acute on chronic heart failure. She has had recent escalation in her diuretics with continued weight gain. proBNP 526. Chest x-ray with prior lobectomy without acute superimposed processes noted.
-Diuresed well overnight. Creatinine remains stable so we will continue IV Lasix diuresis. Prior to admission she was taking 40 mg p.o. Lasix twice daily until day prior to admission when her dose was increased to 60 mg twice daily by her primary
care physician. She reports her weight on 08/11/2023 was 188 pounds
-Overnight she had episode of chest discomfort/pressure relieved by sublingual nitro x 2. Troponin went up to 0.053 however is subsequently trended down. Repeat this morning pending. Will plan to place on IV heparin
-plan for L/RHC on Wednesday 09/13
-continue asa, plavix
-continue imdur, lopressor, lisinopril as BP allows
-of note, jardiance was listed on her last office visit med list, however does not appear to be listed on med list here. would consider adding back if no contraindication
-echo with preserved EF, no sig change compared to prior
-LDL 30. continue statin
-hgbA1c pending
Progress Note - Sheet Rock Sander
Subjective
Date of Service: September 12, 2023
reports episode of chest tightness overnight relieved by SL nitro x2
Objective
Labs:
09/12/23 03:59
09/12/23 03:59
Labs
Hgb 13.0 g/dL (12.0-16.0) 09/12/23 03:59
Hct 40.3 % (37.0-47.0) 09/12/23 03:59
Plt Count 195 10^3/uL (130-400) 09/12/23 03:59
Sodium 136 mmol/L (135-145) 09/12/23 03:59
Potassium 3.9 mmol/L (3.5-5.1) 09/12/23 03:59
BUN 20 mg/dl (7-17) H 09/12/23 03:59
Creatinine 0.8 mg/dL (0.6-1.0) 09/12/23 03:59
Glucose 185 mg/dl (70-99) H 09/12/23 03:59
Troponins
09/11/23 09/11/23 09/11/23
13:15 14:47 20:35
Troponin I < 0.012 0.053 H* D < 0.012 D
09/12/23
03:59
Troponin I < 0.012
Vital Signs and I&O:
Vital Signs
Temp Pulse Resp BP Pulse Ox
97.6 F 68 18 120/66 98
09/12/23 05:44 09/12/23 07:00 09/12/23 05:44 09/12/23 04:15 09/12/23 05:44
Vital Signs
Temp Pulse Resp BP Pulse Ox
97.6 F 68 18 120/66 98
09/12/23 05:44 09/12/23 07:00 09/12/23 05:44 09/12/23 04:15 09/12/23 05:44
Physical Exam
Physical Exam
GEN: No distress, awake, alert, oriented x3
HEENT: supple, anicteric, mmm, eomi
LUNGS: CTA B/L, no wheezes/rales
CV: Reg, S1/S2, no murmur
ABD: soft, BS+, NT/ND
EXT: No cyanosis, clubbing. trace edema of B/L LE
NEURO: Gross non-focal
SKIN: Warm, pink, dry. No rash
[2023-09-12 08:29] LABS: Glucose - Point of Care 244 mg/dl (70-99)
[2023-09-12 09:09] LABS: Glycohemoglobin (HgbA1c) 9.2 % (4.0-5.6)
[2023-09-12] MEDS: PLAVIX 75 MG PO (09:30)
[2023-09-12] MEDS: LOW STRENGTH ASPIRIN 81 MG PO (09:30)
[2023-09-12] MEDS: IMDUR (EXTENDED RELEASE) 60 MG PO (09:31)
[2023-09-12] MEDS: LEXAPRO 20 MG PO (09:31)
[2023-09-12] MEDS: NON-FORMULARY ITEM 1 UNIT PO (09:31)
[2023-09-12] MEDS: FLUSH (NSS) 2 FLUSH IV ×2 (09:31→17:25)
[2023-09-12] MEDS: LASIX 40 MG IV ×2 (09:31→17:25)
[2023-09-12] MEDS: NEURONTIN 600 MG PO ×3 (09:31→22:44)
[2023-09-12] MEDS: LOPRESSOR 12.5 MG PO ×2 (09:31→20:32)
[2023-09-12] MEDS: NOVOLOG FLEXPEN 30 UNITS SC ×3 (09:35→17:27)
[2023-09-12] MEDS: HEPARIN 25000 UNITS/250 ML IV (09:36)
[2023-09-12] MEDS: NOVOLOG FLEXPEN-LOW RESISTANCE 2 UNITS SC (09:36)
[2023-09-12 09:42] LABS: APTT 28.9 Sec (23.4-35.0)
[2023-09-12] MEDS: HEPARIN SC (09:45)
[2023-09-12 10:34] LABS: Troponin I < 0.012 ng/ml
[2023-09-12] MEDS: NOVOLOG FLEXPEN-LOW RESISTANCE 1 UNITS SC (13:34)
[2023-09-12 13:37] LABS: Glucose - Point of Care 166 mg/dl (70-99)
--- NOTE | 2023-09-12 13:57 | PTCARENOTE ---
Pt AAOx3 w/no c/o CP or SOB. VS stable w/HR in 60's-70's on telemetry monitoring. IV Heparin drip started this AM as ordered through patent IV line. Plan of care discussed w/pt. Pt w/call berry within reach & no addtl needs at this time.
[2023-09-12 16:16] LABS: APTT 37.6 Sec (23.4-35.0)
[2023-09-12 17:24] LABS: Glucose - Point of Care 123 mg/dl (70-99)
[2023-09-12] MEDS: NOVOLOG FLEXPEN-LOW RESISTANCE SC (17:26)
[2023-09-12] MEDS: ZESTRIL 5 MG PO (17:29)
[2023-09-12 20:32] LABS: Glucose - Point of Care 152 mg/dl (70-99)
[2023-09-12] MEDS: LIPITOR 40 MG PO (20:32)
[2023-09-12] MEDS: MIRAPEX 0.25 MG PO (20:32)
[2023-09-12] MEDS: LANTUS 0.450000000000000011 UNITS SC (20:32)
[2023-09-12 23:22] LABS: APTT 48.9 Sec (23.4-35.0)
[2023-09-13] VITALS (11 sets, daily range): BP systolic 85–118; BP diastolic 33–83; PULSE 68; BMI 37.9
[2023-09-13] MEDS: HEPARIN 25000 UNITS/250 ML IV ×2 (05:50→22:36)
--- NOTE | 2023-09-13 05:55 | PTCARENOTE ---
~2240 Pt rang with complaints for 6/10 CP EKG, blood work and vitals obtained- 2L NC applied and sublingual nitro given x2 with positive relief 0/10 after. [facility] [employer] notified no new orders a this time.
[2023-09-13 06:26] LABS: APTT 63.2 Sec (23.4-35.0)
[2023-09-13 06:50] LABS: Blood Urea Nitrogen 22 mg/dl (7-17); Calcium 9.4 mg/dl (8.4-10.2); Carbon Dioxide 28 mmol/L (22-30); Chloride 99 mmol/L (98-107); Estimated Creatinine Clearance 76 ml/min; Glucose 176 mg/dl (70-99); Potassium 4.2 mmol/L (3.5-5.1); Sodium 134 mmol/L (135-145); eGFR > 60.00
--- NOTE | 2023-09-13 07:21 | W.PN.HOSP.TC ---
Today's Communication/Plan
-
N.p.o. after midnight
Continue heparin drip
As needed nitroglycerin for recurrent chest pain
Reduce Lantus and mealtime insulin preparation for cardiac cath tomorrow
Assessment / Plan
Assessment / Plan
73-year-old female past medical history of coronary artery disease, HFpEF, hypertension, hyperlipidemia, diabetes, peripheral neuropathy, diabetic retinopathy, COPD, obstructive sleep apnea, lung cancer status post right middle lobe lobectomy and
right lower lobe lobectomy in 1999, lumbar degenerative disease, chronic anemia/iron deficiency, obesity, anxiety/depression, GERD, essential tremor, peripheral vascular disease, presenting for weight gain, lower extreme edema and chest discomfort.
Patient gained 25 pounds in the past month. Patient has shortness of breath when she lies flat and with exertion over the past month. She saw Dr. Singh last week who increased Imdur from 30-60. Patient saw her primary care physician who
increased her Lasix from 40 twice daily to 60 twice a day yesterday with a little bit improvement in swelling.
Today patient developed chest discomfort described as pressure. Pain occurs at rest but is worse with exertion. Pain does not radiate to arms or back or neck. Patient does have chronic cough which is slightly worse than usual and dry. Patient
denies fevers or chills.
Patient denies smoking or alcohol use.
Patient's father had history of heart attack.
Patient overnight after admission developed at around 4 AM similar pressure-like sensation of her chest at this time now radiating to her left shoulder and left arm relieved with 2 to nitroglycerin sublingual
# Acute on chronic HFpEF exacerbation
-Chest x-ray shows no acute process
-Cardiac BNP of 526
-Check I's and O's, daily weights
-40 IV Lasix BID
-Check echo does not show any wall motion abnormality and no changes from prior of 2021
-Cardiology following
# Chest pain possibly secondary to NSTEMI
# History of coronary artery disease with at least 50% proximal RCA stenosis
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
-Troponin initially negative, second is 0.053, 2 subsequent week now again negative
-EKG shows normal sinus rhythm, low voltage QRS/will repeat this morning
-Continue aspirin, Plavix, statin
-Continue Imdur, Jardiance, Lopressor, lisinopril
-Check A1c lipid panel
-Heparin drip
-Cardiology planning on left/right heart catheterization on Thursday/n.p.o. after midnight
Essential hypertension
-Continue lisinopril, metoprolol
Hyperlipidemia
-Continue statin
Type 2 diabetes
-Continue Lantus 45 units at night
-Continue 30 units NovoLog 3 times daily
-Insulin sliding scale
-With pending cardiac cath for Thursday will reduce nighttime Lantus tonight
Peripheral neuropathy
-Continue gabapentin
Diabetic retinopathy
COPD
Obstructive sleep apnea
Lung cancer status post RML lobectomy, RLL lobectomy
Lumbar degenerative disease
Chronic anemia/iron deficiency anemia
Obesity
Anxiety/depression
-Continue Lexapro
GERD
-Continue PPI
Essential tremor
-Continue pramipexole
Peripheral vascular disease
Former smoker
Full code
DVT prophylaxis�heparin
Cardiac diet
Anticipated Discharge: Within 24 hours
Subjective/Interval History
-
Date of Service: September 13, 2023
Other than having a repeat episode of chest pain again last night relieved by 2 separate nitroglycerin had a restful night since around 10 PM without recurrence presently comfortable denying any shortness of breath or chest pain.
Objective Data
-
Labs:
Laboratory Results
09/12/23 09/13/23 09/13/23
23:04 06:01 13:00
APTT 48.9 H 63.2 H Pending
Sodium 134 L
Potassium 4.2
Chloride 99
Carbon Dioxide 28
BUN 22 H
Creatinine 0.7
Glucose 176 H
Calcium 9.4
Vital Signs:
Vital Signs
Temp Pulse Resp BP Pulse Ox
98 F 70 18 96/59 97
09/13/23 05:48 09/12/23 22:51 09/13/23 05:48 09/12/23 22:51 09/13/23 05:48
I&O
09/12/23 09/13/23 09/14/23
06:59 06:59 06:59
Intake Total 1596 / 1596
Output Total 2750 / 2750
Balance -1154 / -1154
Review of Systems
-
History Source: Patient
Constitutional: Reports No Symptoms
EENT: Reports No Symptoms Reported
Respiratory: Reports No Symptoms
Cardiac: Reports Chest Pain (Again last night described as pressure-like radiating to shoulder and left arm)
Physical Exam
-
General: Obese
HEENT: Normocephalic
Respiratory: Clear to Auscultation
Cardiac: Regular Rhythm
GI: Soft, Nontender and Nondistended
Skin: Warm
Data Reviewed
-
Total Time Spent with Patient (in minutes): 56
Labs: Labs Reviewed by me (Off follow-up troponins within normal limits after initial 0.053)
[2023-09-13 07:49] LABS: Glucose - Point of Care 175 mg/dl (70-99)
[2023-09-13] MEDS: NON-FORMULARY ITEM 1 UNIT PO (08:12)
[2023-09-13] MEDS: NEURONTIN 600 MG PO ×3 (08:14→20:58)
[2023-09-13] MEDS: LASIX 40 MG IV ×2 (08:14→15:53)
[2023-09-13] MEDS: LOW STRENGTH ASPIRIN 81 MG PO (08:15)
[2023-09-13] MEDS: LEXAPRO 20 MG PO (08:16)
[2023-09-13] MEDS: PLAVIX 75 MG PO (08:16)
[2023-09-13] MEDS: LOPRESSOR 12.5 MG PO ×2 (08:16→19:45)
[2023-09-13] MEDS: IMDUR (EXTENDED RELEASE) 60 MG PO (08:16)
[2023-09-13] MEDS: FLUSH (NSS) 1 FLUSH IV (08:17)
[2023-09-13] MEDS: NOVOLOG FLEXPEN-LOW RESISTANCE 1 UNITS SC (08:17)
--- NOTE | 2023-09-13 11:13 | W.PN.CARDCBS ---
Today's Communication / Plan
-
Plan for right and left heart catheterization on Thursday.
Chest pain requiring 1 sublingual nitroglycerin overnight. Imdur increased to 60 mg in the morning and 30 mg in the p.m.
Continue current medicines
Continue IV heparin
Discussed with nursing
Impression / Plan
-
Primary Clerical Support: Dr. Singh
Assessment:
Presentation with chest discomfort, UE/LE swelling, ARCOS, weight gain
Acute on chronic HFpEF
Elevated troponin
CAD with mod to severe diffuse coronary artery calcification, at least 50% prox RCA stenosis, guide induced prox RCA dissection s/p PCI by cath 01/29/22
DM2
Peripheral neuropathy
Diabetic retinopathy
HTN
HLD
Iron def anemia
h/o lung cancer s/p RML and RLL resection in 07/1999
former tobacco use
COPD/asthma
DENNIS on CPAP
depression/anxiety
GERD
Calcific pancreatitis
essential tremor
PVD RLE
Obesity
ECHO 01/2022: EF 65 to 70%, no regional wall motion abnormalities noted, no significant valvular disease
ECHO 09/11/23: EF 60 to 65%, grade 1 diastolic dysfunction, trace MR and TR, prominent anterior fat pad, no significant change compared to prior
Plan:
-Recurrent chest pain overnight requiring 1 sublingual nitroglycerin. EKG stable. No recurrence. I have increased Imdur to 60 mg in the morning and 30 mg in the p.m. She is on beta-richard and is bradycardic.
-Cardiac catheterization in the a.m. Would proceed with right and left heart catheterization
-Initial presentation in addition with acute on chronic heart failure with preserved ejection fraction. She has had recent outpatient escalation in her diuretics with continued weight gain. proBNP 526. Chest x-ray with prior lobectomy without
acute superimposed processes noted.
-Continue diuresis weights continue to trend down. She reports her weight on 08/11/2023 was 188 pounds
-Peak troponin during hospital stay o 0.053 it has trended down. Continue IV heparin
-continue asa, plavix
-Above note, kal was listed on her last office visit med list, however does not appear to be listed on med list here. Would consider adding back if no contraindication
-Echo with preserved EF, no sig change compared to prior
-LDL 30. continue statin
-hgbA1c 9.2%. Defer to primary service for glucose control and education.
Progress Note - Clerical Support
Subjective
Date of Service: September 13, 2023
Chest pain overnight without recurrence relieved by sublingual nitroglycerin. Shortness of breath at baseline.
Objective
Labs:
09/12/23 08:34
09/13/23 06:01
Labs
Hgb Cancelled 09/12/23 08:34
Hct Cancelled 09/12/23 08:34
Plt Count Cancelled 09/12/23 08:34
APTT 63.2 Sec (23.4-35.0) H 09/13/23 06:01
Sodium 134 mmol/L (135-145) L 09/13/23 06:01
Potassium 4.2 mmol/L (3.5-5.1) 09/13/23 06:01
BUN 22 mg/dl (7-17) H 09/13/23 06:01
Creatinine 0.7 mg/dL (0.6-1.0) 09/13/23 06:01
Glucose 176 mg/dl (70-99) H 09/13/23 06:01
Troponins
09/11/23 09/11/23 09/11/23
13:15 14:47 20:35
Troponin I < 0.012 0.053 H* D < 0.012 D
09/12/23 09/12/23 09/12/23
03:59 08:00 09:18
Troponin I < 0.012 Cancelled < 0.012
09/12/23
09:18
Troponin I Cancelled
Vital Signs and I&O:
Vital Signs
Temp Pulse Resp BP Pulse Ox
98.1 F 62 16 117/57 97
09/13/23 08:00 09/13/23 10:00 09/13/23 08:00 09/13/23 08:16 09/13/23 08:00
Vital Signs
Temp Pulse Resp BP Pulse Ox
98.1 F 62 16 117/57 97
09/13/23 08:00 09/13/23 10:00 09/13/23 08:00 09/13/23 08:16 09/13/23 08:00
Intake & Output
09/11/23 09/12/23 09/13/23 09/14/23
06:59 06:59 06:59 06:59
Intake Total 1596 / 1596
Output Total 2750 / 2750
Balance -1154 / -1154
Physical Exam
Physical Exam
General: Well developed, well nourished in NAD.
Heart: Non displaced PMI, RRR, no murmurs, No S3, S4, no rubs.
Lungs: Coarse anterior breath sounds
Extremities: No clubbing, cyanosis and trace edema bilaterally.
Neuro: Grossly nonfocal, awake, alert
[2023-09-13 12:02] LABS: Glucose - Point of Care 260 mg/dl (70-99)
[2023-09-13] MEDS: NOVOLOG FLEXPEN-LOW RESISTANCE 3 UNITS SC (13:15)
[2023-09-13] MEDS: NOVOLOG FLEXPEN 30 UNITS SC ×2 (13:15→17:11)
[2023-09-13 14:19] LABS: APTT 68.1 Sec (23.4-35.0)
--- NOTE | 2023-09-13 15:08 | PTCARENOTE ---
received patient this am, monitor shows NSR, IV heparin @ 1600units/hr. patient will be NPO after midnight for heart cath, patient has no questions or concerns at this time.
[2023-09-13 17:10] LABS: Glucose - Point of Care 139 mg/dl (70-99)
[2023-09-13] MEDS: NOVOLOG FLEXPEN-LOW RESISTANCE SC (17:11)
[2023-09-13] MEDS: ZESTRIL 5 MG PO (17:14)
[2023-09-13] MEDS: IMDUR (EXTENDED RELEASE) 30 MG PO (17:15)
[2023-09-13] MEDS: LANTUS 0.299999999999999989 UNITS SC (18:12)
[2023-09-13] MEDS: MIRAPEX 0.25 MG PO (20:58)
[2023-09-13] MEDS: LIPITOR 40 MG PO (20:58)
[2023-09-14] VITALS (12 sets, daily range): BP systolic 90–140; BP diastolic 58–107; PULSE 74; BMI 37.6
--- NOTE | 2023-09-14 00:05 | PTCARENOTE ---
Pt is AOX3 and pleasant. Heparin gtt infusing at 1800 units/hr. Offers no c/o pain/dizziness at this time. Pt reminded to use call berry for assistance to get OOB. Aware of NPO status for cath tomorrow. Currently resting in bed; call berry w/in reach.
[2023-09-14 00:14] LABS: Glucose - Point of Care 99 mg/dl (70-99)
[2023-09-14 05:09] LABS: Hematocrit 38.4 % (37.0-47.0); Mean Corp Hgb Conc. 33.9 g/dL (33.0-37.0); Mean Corpuscular Hgb 29.9 pg (27.0-31.0); Mean Corpuscular Volume 88.3 fL (81.0-99.0); Mean Platelet Volume 10.3 fL (7.4-10.4); Platelet Count 206 10^3/uL (130-400); Red Blood Cell Count 4.35 10^6/uL (4.20-5.40); Red Cell Dist. Width 15.3 % (11.5-14.5); White Blood Cell Count 11.8 10^3/uL (4.8-10.8)
[2023-09-14 05:22] LABS: APTT 100.4 Sec (23.4-35.0)
[2023-09-14 05:30] LABS: Blood Urea Nitrogen 22 mg/dl (7-17); Calcium 9.3 mg/dl (8.4-10.2); Carbon Dioxide 28 mmol/L (22-30); Chloride 99 mmol/L (98-107); Estimated Creatinine Clearance 75 ml/min; Glucose 139 mg/dl (70-99); Potassium 3.9 mmol/L (3.5-5.1); Sodium 134 mmol/L (135-145); eGFR > 60.00
[2023-09-14 07:41] LABS: Glucose - Point of Care 144 mg/dl (70-99)
[2023-09-14] MEDS: NOVOLOG FLEXPEN SC ×2 (07:54→17:09)
[2023-09-14] MEDS: NOVOLOG FLEXPEN-LOW RESISTANCE SC (07:54)
[2023-09-14] MEDS: PLAVIX 75 MG PO (07:56)
[2023-09-14] MEDS: LOW STRENGTH ASPIRIN 81 MG PO (07:56)
--- NOTE | 2023-09-14 08:05 | PTCARENOTE ---
Rec'd pt AAOx3 from prev nsg shift. VS stable w/HR in the 70's & pt SR on telemetry monitoring. Pt w/IV Heparin drip infusing as ordered through patent IV line. Pt w/no c/o CP, pressure, or SOB. Pt given ASA & Plavix before being taken to cardiac
slab conditioner supervisor. Report given to Ann Marie in label printer. Plan of care ongoing.
--- NOTE | 2023-09-14 08:08 | W.PN.HOSP.TC ---
Today's Communication/Plan
-
see plan
Assessment / Plan
Assessment / Plan
73-year-old female past medical history of coronary artery disease, HFpEF, hypertension, hyperlipidemia, diabetes, peripheral neuropathy, diabetic retinopathy, COPD, obstructive sleep apnea, lung cancer status post right middle lobe lobectomy and
right lower lobe lobectomy in 1999, lumbar degenerative disease, chronic anemia/iron deficiency, obesity, anxiety/depression, GERD, essential tremor, peripheral vascular disease, presenting for weight gain over past month, lower extreme edema and
chest discomfort.
Patient overnight after admission developed at around 4 AM similar pressure-like sensation of her chest at this time now radiating to her left shoulder and left arm relieved with 2 to nitroglycerin sublingual
s/p cardiac cath this morning showing
# Acute on chronic HFpEF exacerbation
-Chest x-ray shows no acute process
-Cardiac BNP of 526
-Check I's and O's, daily weights
-40 IV Lasix BID
- echo does not show any wall motion abnormality and no changes from prior of 2021
-Cardiology following
# Chest pain possibly secondary to NSTEMI
# History of coronary artery disease with at least 50% proximal RCA stenosis
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
-Troponin initially negative, second is 0.053, 2 subsequent week now again negative
-s/p cardiac cath this AM with MVD; CTS consulted
-Continue aspirin, statin; PLavix now on hold
-Continue Imdur, Jardiance, Lopressor, lisinopril
-Check A1c lipid panel
-awaiting final cath report
Essential hypertension
-Continue lisinopril, metoprolol
Hyperlipidemia
-Continue statin
Type 2 diabetes
-Continue Lantus 45 units at night
-Continue 30 units NovoLog 3 times daily
-Insulin sliding scale
-resume lantus dosing this evening
Peripheral neuropathy
-Continue gabapentin
Diabetic retinopathy
COPD
Obstructive sleep apnea
Lung cancer status post RML lobectomy, RLL lobectomy
Lumbar degenerative disease
Chronic anemia/iron deficiency anemia
Obesity
Anxiety/depression
-Continue Lexapro
GERD
-Continue PPI
Essential tremor
-Continue pramipexole
Peripheral vascular disease
Former smoker
Full code
DVT prophylaxis�heparin
Cardiac diet
Anticipated Discharge: 24 - 48 hours
Subjective/Interval History
-
Date of Service: September 14, 2023
feeling well
breathing better
no chest pain
seen post cardiac cath
Objective Data
-
Labs:
Laboratory Results
09/13/23 09/14/23 09/14/23
21:05 04:34 10:45
WBC 11.8 H
Hgb 13.0
Hct 38.4
Plt Count 206
APTT 72.0 H 100.4 H Pending
Sodium 134 L
Potassium 3.9
Chloride 99
Carbon Dioxide 28
BUN 22 H
Creatinine 0.7
Glucose 139 H
Calcium 9.3
Vital Signs:
Vital Signs
Temp Pulse Resp BP Pulse Ox
98.2 F 76 18 106/59 98
09/14/23 04:27 09/14/23 07:00 09/14/23 04:27 09/14/23 06:47 09/14/23 04:27
I&O
09/13/23 09/14/23 09/15/23
06:59 06:59 06:59
Intake Total 1596 / 1596 240 / 240
Output Total 2750 / 2750 2100 / 2100
Balance -1154 / -1154 -1860 / -1860
Review of Systems
-
History Source: Patient
All other systems: Reviewed and negative
Physical Exam
-
General: Obese
HEENT: Normocephalic
Respiratory: Clear to Auscultation
Cardiac: Regular Rhythm
GI: Soft, Nontender and Nondistended
Skin: Warm
Psych: Calm
Data Reviewed
-
Diagnostic Radiology: Report Reviewed by me
Labs: Labs Reviewed by me
[2023-09-14 08:41] LABS: Magnesium 2.1 mg/dl (1.6-2.3)
[2023-09-14 09:31] LABS: ACT-LR - POC 215 Seconds (116-155)
--- NOTE | 2023-09-14 10:10 | PTCARENOTE ---
Rec'd report from Rosanna in the chemical laboratory assistant & rec'd pt back AAOx3 w/no c/o CP or SOB. Pt w/R radial band in place w/no signs or symptoms of bleeding or hematoma. Pt w/VS stable & pt remains SR on telemetry monitoring. This RN discussed plan of care
w/pt including bedrest orders & RUE restrictions post cath. Pt w/call berry within reach & plan of care ongoing.
--- NOTE | 2023-09-14 10:43 | CONSULT.CT ---
Consultation
-
Date/Time Consultation Requested: 09/14/2023
Date/Time Consultation Performed: 09/14/2023
Requesting Provider:
Performing Provider: Jayne davidson
Reason for Consultation: Cabg eval.
Patient History
Physicians
Family Physician: Jeannine Marte
Outpatient Fur Sorter: Bobo Singh
History of Present Illness
Patient is a 73-year-old female with a extensive past medical history. Past medical history significant for chronic heart failure with preserved ejection fraction and coronary artery disease with previous RCA dissection status post PCI. She also
has been treated for diabetes, hypertension, obstructive sleep apnea, severe COPD status post right middle and right lower lobe lobectomy in 1999 at [place]. She reports a weight gain over the past few months of approximately 20 pounds along
with worsening chest discomfort with exertion. Symptoms were worse the morning of admission and she presented to [facility] ED. She was admitted for acute on chronic heart failure and diuresed aggressively. Echocardiogram performed
showed no significant change from previous study. She underwent cardiac catheterization today 09/14/2023 which again showed multivessel coronary artery disease. Last catheterization was 01/31/24, with a proximal RCA dissection status post PCI.
Cardiothoracic surgery was consulted for surgical revascularization. Preoperative studies have been ordered and STS risk calculation will be performed when all data obtained.
Patient's last dose of Plavix was this morning 09/14/2023
Past Medical History
Past Medical History: Angina, Asthma, CAD, Cancer, CHF, COPD, CVA/TIA, ARCOS, GERD, HTN, Hypercholesterolemia, IDDM, ND, DENNIS and SOB
Past medical history significant for hypertension, hyperlipidemia, TIA/CVA, PVD, lacunar infarct, essential tremor, heart failure with preserved ejection fraction, diabetic neuropathy, diabetic retinopathy, obstructive sleep apnea on CPAP, COPD,
lung cancer with history of right lower lobe and right middle lobe lobectomy, anxiety, depression, obesity, restless leg syndrome, chronic anemia, osteopenia, lumbar degenerative disc disease, gastroesophageal reflux disease, rheumatoid arthritis,
PVCs, peripheral artery disease followed by Dr. Rodriguez,
Past Surgical History
Past Surgical History: Abdominal (Cholecystectomy), PCI/Stent (PCI stent complicated by RCA dissection) and Other
History of lung cancer status post right middle lobe and right lower lobe lobectomy in 1999 at [place]
Dental History
No issues has upper and lower dentures
Family History
Mother: at Age (70s) and Cause of ( from throat cancer history of CAD)
Father: at Age ( in his late 60s had a previous CABG and from lung cancer)
Family Medical History: CAD, Cancer and Hypertension
Social History
Alcohol: None
Drug: None
Tobacco: Former Smoker (Spoke to 2 packs/day for 30+ years and quit in 1999)
Personal:
Living: With Family (Lives with her sister)
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
Allergies
Allergy/AdvReac Type Severity Reaction Status Date / Time
azithromycin Allergy See Verified 07/10/22 15:45
comments
codeine Allergy vomiting Verified 07/10/22 15:45
omeprazole Allergy fever and Verified 07/10/22 15:45
joint aches
propranolol Allergy Shortness Verified 07/10/22 15:45
of
Breath/tight
chest, SOB
Home Medications
�Medication �Instructions �Recorded �Confirmed �Type
escitalopram oxalate 20 mg tablet 20 mg PO DAILY Mental health 11/30/15 09/11/23 History
dexlansoprazole 30 mg 60 mg PO DAILY Gastrointestinal 04/04/17 09/11/23 History
capsule,biphase delayed release issue
(Dexilant)
aspirin 81 mg chewable tablet 81 mg PO DAILY Blood clot 08/01/21 09/11/23 History
prevention/tx
lisinopril 5 mg tablet 5 mg PO QPM Blood pressure 08/01/21 09/11/23 History
atorvastatin 40 mg tablet 40 mg PO HS High cholesterol 01/28/22 09/11/23 History
nitroglycerin 0.4 mg sublingual 0.4 mg sublingual [id number] PRN 01/28/22 09/11/23 History
tablet chest pain
pramipexole 0.25 mg tablet 0.25 mg PO HS Neurological 01/28/22 09/11/23 History
Condition
clopidogrel 75 mg tablet 75 mg PO DAILY Blood clot 02/01/22 09/11/23 Rx
prevention/tx #30 tabs
furosemide 40 mg tablet 40 mg PO BID Fluid 09/11/23 09/11/23 History
Retention/Swelling
gabapentin 600 mg tablet 600 mg PO TID Pain 09/11/23 09/11/23 History
insulin aspart U-100 100 unit/mL 30 unit SC TID Diabetes 09/11/23 09/11/23 History
subcutaneous solution (Novolog
U-100 Insulin aspart)
insulin glargine 100 unit/mL (3 45 unit SC QPM Diabetes 09/11/23 09/11/23 History
mL) subcutaneous pen (Lantus
Solostar U-100 Insulin)
isosorbide mononitrate 30 mg 60 mg PO DAILY Heart 09/11/23 09/11/23 History
tablet,extended release 24 hr disease/condition
metoprolol tartrate 25 mg tablet 12.5 mg PO BID Heart 09/11/23 09/11/23 History
disease/condition
Review of Systems
-
History Source: Patient
General: Reports Weight Gain and Fatigue
HEENT: Reports Visual Changes
Respiratory: Reports SOB, ARCOS, Asthma and Other (Obstructive sleep apnea uses CPAP at home)
Cardiac: Reports Chest Pain, CAD and Edema
Abdomen/GI: Reports Reflux
: Reports No Symptoms
Musculoskeletal: Reports Joint Pain, Edema and Other (Lumbar disc disease, osteopenia)
Skin: Reports Other (Skin cancer on left side of face and right leg)
Neurological: Reports CVA, TIA and Headaches (Migraines years ago)
Vascular: Reports Claudication and PVD (PAD followed by Dr. Rodriguez)
Physical Exam
Vital Signs
Temp 98.0 F 09/14/23 06:40
Temp route: Oral 09/14/23 06:40
Pulse 79 09/14/23 10:00
Rhythm: Normal sinus rhythm 09/14/23 07:50
Resp Rate 18 09/14/23 06:40
Blood pressure 140/107 09/14/23 10:00
Blood pressure extremity used: Right upper arm 09/14/23 06:40
Position: Lying 09/14/23 06:40
MAP (cuff-Munira Monitor) 120 09/14/23 10:00
SaO2 98 09/14/23 10:00
Nasal Cannula flow liters per minute 2 09/12/23 08:05
Oxygen Mode of Delivery Room air 09/14/23 07:50
Can the patient verbally communicate their pain? Yes 09/14/23 07:50
Pain scale ratin 09/12/23 00:47
Actual Weight 199 lb 1.239 oz 09/14/23 04:48
Body Mass Index (BMI) 37.6 09/14/23 04:48
Labs
09/14/23 04:34
09/14/23 04:34
APTT 100.4 Sec (23.4-35.0) H 09/14/23 04:34
Hemoglobin A1c 9.2 % (4.0-5.6) H 09/12/23 03:59
Troponin I < 0.012 ng/ml 09/12/23 09:18
Troponin I Cancelled 09/12/23 09:18
Zsj-V-Aobhwytxajt Pept 526 pg/ml 09/11/23 13:15
Exam
General: Well Developed, Well Nourished, No Apparent Distress and Comfortable
HEENT: Normocephalic, Anicteric and Atraumatic
Neck: Trachea Midline
Respiratory: Crackles (Crackles at bases)
Cardiac: Regular Rhythm
GI: Soft, Non Tender, Non Distended, Normal Bowel Sounds and Other (Morbidly obese)
Rectal: Deferred by Provider
Skin: Warm and Dry
Neuro: Awake, Alert, Oriented and AO x 3
Extremities: Lower Level Edema and Pulses (Decreased distal pulses bilaterally dorsalis pedis pulse barely palpable bilaterally, posterior tibial pulse barely palpable bilaterally/feet are warm bilaterally, toes cool to touch)
Lymph: No Lymphadenopathy
Psych: Calm
Assessment / Plan
-
Assessment: Acute on chronic heart failure with preserved ejection fraction
Multivessel coronary artery disease with moderate to severe diffuse coronary artery calcifications, history of proximal RCA dissection status post PCI on 01/29/2022.
Hypertension
Pulmonary hypertension
Hyperlipidemia
Insulin-dependent diabetes mellitus
History of TIA/lacunar infarct
Diabetic neuropathy
Diabetic retinopathy
Obstructive sleep apnea with CPAP at home
Restless leg syndrome
Severe COPD, quit smoking in 1999 after right middle lobe and right lower lobe lobectomy at [place] by Dr. Alcala
Essential tremor
Obesity
PVD right lower extremity followed by Dr. Rodriguez
Calcific pancreatitis
Gastroesophageal reflux disease
Depression / anxiety
Iron deficiency anemia
Multi mirna goiter
Herniated disc lumbar spine
Plan:
Preoperative studies ordered, extensive medical history will be put into STS risk calculator and after studies reviewed by attending cardiothoracic surgeons, will discuss with patient later this week.
--- NOTE | 2023-09-14 10:43 | ITS.CL.CATH ---
Retail Delivery Driver - Catheterization
Cardiac Catheterization
Procedure Report:
RIGHT AND LEFT HEART STUDY
Date of Procedure: September 14, 2023
Referring: Dr. Sobeida Jacques
PROCEDURES:
1. Right heart catheterization
2. Coronary angiography
3. Hemodynamic assessment of LAD with a Van Tassell Omni wire. The iFR serially measured below the ischemic threshold at 0.78, 0.71, and 0.79.
INDICATION: This is a 73-year-old female with longstanding diabetes who presented to [facility] with increased shortness of breath, weight gain, and left arm and shoulder discomfort. Her initial troponin was normal but increased to 0.053
ng/mL on repeat then fell back to undetectable on the next reading. She is now referred for coronary angiography.
ACCESS: Right radial artery with placement of 5 Moroccan sheath. Ultrasound guidance was utilized. Right brachial vein with placement of a 5 Moroccan sheath. Ultrasound guidance was utilized.
HEMODYNAMICS : mmHg
RA (m) : 13
RV (s/d) : 35/9, 14
PA (s/d, m) : 32/15, 22
PCWP (m) : 21 with V waves to 34 mmHg
AO (s/d, m) : 107/55, 79 (obtained with brachial blood pressure cuff)
Estimated Stephanie Cardiac Output: 4.6 L / min and Cardiac Index: 2.2 L/ min / m-2
CORONARY FINDINGS : 3 vessel coronary calcification
Dominance: Right
LEFT MAIN: Minor tubular narrowing with no discrete stenosis.
LEFT ANTERIOR DESCENDING: The LAD arises normally from the left main and runs in the anterior intraventricular groove. The proximal to mid LAD is calcified with a 50% proximal stenosis. The first diagonal branch arises from the proximal one-third
of the LAD ans is a small caliber vessel. There is diffuse 20-30% mid to distal LAD stenosis. The iFR in the distal LAD measures serially below the ischemic threshold at 0.78, 0.71, and 0.79. The majority of the step-up occurred across the more
proximal LAD stenosis proximal to the first diagonal branch. The Pd/Pa measured 0.99 back at the guide catheter confirming no baseline drift.
CIRCUMFLEX: The circumflex is a small caliber nondominant vessel. OM1 arises proximally from the circumflex and is a small caliber vessel. The mid circumflex beyond OM1 has an eccentric 70% stenosis best appreciated in TASHIA 24 / CAU 26 view.
RIGHT CORONARY ARTERY: The right coronary artery is a dominant vessel. There is a stent from the ostia / proximal RCA that is widely patent. No pressure dampening with engagement of a 5 Fr catheter. The mid RCA has a 40% stenosis and the RCA has
a high bifurcation just beyond this narrowing to a small caliber PDA that supplies a sizable territory. There is a 50% proximal and 60% mid stenosis in the PDA. The PLB also is small with diffuse moderate atherosclerosis including a calcified 60%
mid stenosis.
VENTRICULOGRAPHY: Not done
HEMODYNAMIC ASSESSMENT OF THE LAD WITH A VOLCANO OMNI WIRE: Intravenous heparin was administered and the ACT was followed during the procedure. A 5 Moroccan JL 4 guiding catheter was advanced to the proximal ascending thoracic aorta. A Van Tassell Omni
wire was advanced to the guide catheter tip and normalized to guide catheter pressure while the guide catheter was disengaged from the left main. The JL 4 cannulated the origin of the left main and the Omni wire was then advanced distally to the
LAD. The guide catheter was disengaged from the left main and the iFR serially measured well below the ischemic threshold at 0.78, 0.71, and 0.79. The Omni wire was slowly withdrawn with pullback gradients in the Pd/Pa recorded. The most
significant step up in the Pd/Pa occurred at/proximal to the first diagonal branch. At the guide catheter the Pd/Pa measured 0.99 confirming no baseline drift.
RADIATION SUMMARY: Fluoro Time (min): 11.0, Dose (mGy): 570, DAP (Gy.cm2) : 42.3
CONCLUSIONS
1. Multivessel coronary artery disease with iFR positive LAD stenosis, high-grade stenosis in the mid circumflex proximal to OM 2, and moderate diffuse disease in the RCA/PDA/PLB
2. Mildly elevated right and left ventricular filling pressure
RECOMMENDATIONS
1. Will consult CT surgery to consider revascularization of the LAD, OM 2, PDA/PLB and possibly the first diagonal branch.
Copy to: Dr. Bobo Singh
[2023-09-14] MEDS: NEURONTIN 600 MG PO ×3 (10:48→22:55)
[2023-09-14] MEDS: LOPRESSOR 12.5 MG PO ×2 (10:48→19:48)
[2023-09-14] MEDS: LEXAPRO 20 MG PO (10:49)
[2023-09-14] MEDS: IMDUR (EXTENDED RELEASE) 60 MG PO (10:49)
[2023-09-14] MEDS: NON-FORMULARY ITEM 1 UNIT PO (10:50)
[2023-09-14] MEDS: LASIX 40 MG IV ×2 (10:50→17:36)
[2023-09-14 11:13] LABS: Glucose - Point of Care 168 mg/dl (70-99)
[2023-09-14] MEDS: NOVOLOG FLEXPEN-LOW RESISTANCE 1 UNITS SC (11:44)
[2023-09-14] MEDS: NOVOLOG FLEXPEN 18 UNITS SC (11:45)
[2023-09-14] MEDS: TYLENOL 1000 MG PO (11:48)
--- NOTE | 2023-09-14 12:17 | W.PN.UPDATE ---
Update Note
Progress Note Update
Procedure Type:�Isolated CABG
PERIOPERATIVE OUTCOME ESTIMATE %
Operative Mortality 3.82%
Morbidity & Mortality 15.8%
Stroke 1.7%
Renal Failure 3.3%
Reoperation 1.86%
Prolonged Ventilation 10.2%
Deep Sternal Wound Infection 1.38%
Long Hospital Stay (>14 days) 13.6%
Short Hospital Stay (<6 days)* 19.7%
Clinical Summary
Planned Surgery: Isolated CABG, Urgent, First cardiovascular surgery
Demographics: 73 year old, White, female, 90kg, 155cm, BMI: 37.5 kg/m�
Lab Values: Creatinine: 0.7 mg/dL, Hematocrit: 38.4%, WBC Count: 11.8 10�/�L, Platelet Count: 547397 cells/�L
PreOp Medications: MONISHA Inhibitors/ARBs <=48 hrs, Insulin diabetes control
Substance Abuse: Former smoker
Risk Factors / Comorbidities: Insulin-dependent Diabetes Mellitus, Hypertension, Family Hx of CAD
Pulmonary RF: Severe CLD
Cardiac Status: Acute and chronic heart failure, NYHA Class I, Ejection Fraction = 60%
Coronary Artery Disease: 3 vessels diseased, Non-ST Elevation OH, OH: > 21 Days
Valve Disease: Trivial/Trace MR, Trivial/Trace TR
[2023-09-14] MEDS: IMDUR (EXTENDED RELEASE) PO (12:24)
--- NOTE | 2023-09-14 12:34 | CM ---
spoke to pt and sister in room, she is prev indep, lives with her sister in a 2 story homewith a ramp to enter. she has a walker and CPAP at home she uses and a cane to use if needed. awaiting CT surgery consult to determine dc plans. cm to follow.
--- NOTE | 2023-09-14 15:17 | PTCARENOTE ---
Pt's R radial band off at 1450 w/dressing C/D/I. R radial site was oozing under the band earlier and had stopped just before band removed and sterile dressing placed. Pt's VS stable. Pt is anxious re: possible open heart procedure & her sisters
arrived at bedside. CT Surgery Sabi SOUZA in to them & pt reports feeling 'much better about it all after talking with her'. Pt w/call berry within reach & plan of care ongoing.
[2023-09-14 16:45] LABS: Glucose - Point of Care 240 mg/dl (70-99)
[2023-09-14] MEDS: NOVOLOG FLEXPEN 30 UNITS SC (17:35)
[2023-09-14] MEDS: NOVOLOG FLEXPEN-LOW RESISTANCE 2 UNITS SC (17:36)
[2023-09-14] MEDS: IMDUR (EXTENDED RELEASE) 30 MG PO (17:36)
[2023-09-14] MEDS: ZESTRIL 5 MG PO (17:37)
[2023-09-14] MEDS: HEPARIN 25000 UNITS/250 ML IV (19:49)
[2023-09-14] MEDS: LIPITOR 40 MG PO (22:55)
[2023-09-14] MEDS: LANTUS 0.450000000000000011 UNITS SC (22:55)
[2023-09-14] MEDS: MIRAPEX 0.25 MG PO (22:55)
[2023-09-14 22:59] LABS: Glucose - Point of Care 139 mg/dl (70-99)
[2023-09-14 23:53] LABS: APTT 76.2 Sec (23.4-35.0)
[2023-09-15] VITALS (7 sets, daily range): BP systolic 103–147; BP diastolic 63–136; BMI 37.2
--- NOTE | 2023-09-15 00:29 | PTCARENOTE ---
Pt received at start of shift, HR SR. Heparin infusing at 1800 units/hr. Updated pt on plan of care, pt states no questions at this time. Pt denies any CP, SOB, or lightheadedness/dizziness at this time. Informed to notify RN if any changes, call
berry within reach.
[2023-09-15 06:39] LABS: Hematocrit 40.1 % (37.0-47.0); Hemoglobin 13.4 g/dL (12.0-16.0); Mean Corp Hgb Conc. 33.4 g/dL (33.0-37.0); Mean Corpuscular Hgb 29.9 pg (27.0-31.0); Mean Corpuscular Volume 89.5 fL (81.0-99.0); Mean Platelet Volume 10.1 fL (7.4-10.4); Platelet Count 194 10^3/uL (130-400); Red Blood Cell Count 4.48 10^6/uL (4.20-5.40); Red Cell Dist. Width 15.4 % (11.5-14.5)
[2023-09-15 06:54] LABS: APTT 130.9 Sec (23.4-35.0)
[2023-09-15 07:18] LABS: Glucose - Point of Care 153 mg/dl (70-99)
[2023-09-15] MEDS: NOVOLOG FLEXPEN-LOW RESISTANCE 1 UNITS SC ×3 (07:20→17:25)
[2023-09-15] MEDS: NOVOLOG FLEXPEN 18 UNITS SC ×2 (07:21→13:52)
--- NOTE | 2023-09-15 07:29 | W.PN.HOSP.TC ---
Addendum entered and electronically signed by Sumaya Salcedo MD 09/15/23 07:34:
plavix resumed per cardiology
Original Note:
Today's Communication/Plan
-
-NPO after breakfast for repeat cardiac cath this afternoon
Assessment / Plan
Assessment / Plan
73-year-old female past medical history of coronary artery disease, HFpEF, hypertension, hyperlipidemia, diabetes, peripheral neuropathy, diabetic retinopathy, COPD, obstructive sleep apnea, lung cancer status post right middle lobe lobectomy and
right lower lobe lobectomy in 1999, lumbar degenerative disease, chronic anemia/iron deficiency, obesity, anxiety/depression, GERD, essential tremor, peripheral vascular disease, presenting for weight gain over past month, lower extreme edema and
chest discomfort.
Patient overnight after admission developed at around 4 AM similar pressure-like sensation of her chest at this time now radiating to her left shoulder and left arm relieved with 2 to nitroglycerin sublingual
s/p cardiac cath morning 09/14/23
CONCLUSIONS
1. Multivessel coronary artery disease with iFR positive LAD stenosis, high-grade stenosis in the mid circumflex proximal to OM 2, and moderate diffuse disease in the RCA/PDA/PLB
2. Mildly elevated right and left ventricular filling pressure
# Acute on chronic HFpEF exacerbation
-Chest x-ray shows no acute process
-Cardiac BNP of 526
-Check I's and O's, daily weights
-40 IV Lasix BID
- echo does not show any wall motion abnormality and no changes from prior of 2021
-PCWP elevated 09/14/23
-appreciate cardiology
# Chest pain possibly secondary to NSTEMI
# History of coronary artery disease with at least 50% proximal RCA stenosis
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
-Troponin initially negative, second is 0.053, 2 subsequent week now again negative
-s/p cardiac cath this AM with MVD; CTS consulted; not surgical candidate and plan for complicated cath this afternoon
-Continue aspirin, statin; PLavix now on hold
-Continue Imdur (dosing increased per cardiology), Jardiance, Lopressor, lisinopril
-Check A1c lipid panel
-F/U further cardiology recs
Essential hypertension
-Continue lisinopril, metoprolol
Hyperlipidemia
-Continue statin
Type 2 diabetes
-Continue Lantus 45 units at night
-Continue 30 units NovoLog 3 times daily
-Insulin sliding scale
-home lantus dosing resumed
Peripheral neuropathy
-Continue gabapentin
Diabetic retinopathy
COPD
Obstructive sleep apnea
Lung cancer status post RML lobectomy, RLL lobectomy
Lumbar degenerative disease
Chronic anemia/iron deficiency anemia
Obesity
Anxiety/depression
-Continue Lexapro
GERD
-Continue PPI
Essential tremor
-Continue pramipexole
Peripheral vascular disease
Former smoker
Full code
DVT prophylaxis�heparin
Cardiac diet
Anticipated Discharge: 24 - 48 hours
Subjective/Interval History
-
Date of Service: September 15, 2023
no chest pain
urinating frequently, breathing improving
Objective Data
-
Labs:
Laboratory Results
09/14/23 09/15/23 09/15/23
23:24 06:31 13:20
WBC 11.0 H
Hgb 13.4
Hct 40.1
Plt Count 194
APTT 76.2 H 130.9 H Pending
Sodium Pending
Potassium Pending
Chloride Pending
Carbon Dioxide Pending
BUN Pending
Creatinine Pending
Glucose Pending
Calcium Pending
Total Bilirubin Pending
AST Pending
ALT Pending
Alkaline Phosphatase Pending
Vital Signs:
Vital Signs
Temp Pulse Resp BP Pulse Ox
97.8 F 80 20 107/65 96
09/15/23 02:48 09/15/23 06:00 09/15/23 02:48 09/15/23 02:48 09/15/23 02:48
I&O
09/14/23 09/15/23 09/16/23
06:59 06:59 06:59
Intake Total 240 / 240 2084 / 2084
Output Total 2099 / 2099 2900 / 2900
Balance -1860 / -1860 -815 / -815
Review of Systems
-
History Source: Patient
All other systems: Reviewed and negative
Physical Exam
-
General: Obese
HEENT: Normocephalic
Respiratory: Clear to Auscultation
Cardiac: Regular Rhythm and S1/S2
GI: Soft, Nontender and Nondistended
Musculoskeletal: Other (trace edema b/l )
Skin: Warm
Neuro: AO x 3
Psych: Calm
Data Reviewed
-
Diagnostic Radiology: Report Reviewed by me
Labs: Labs Reviewed by me
[2023-09-15 07:53] LABS: ALT (SGPT) 23 U/L (0-35); AST (SGOT) 41 U/L (14-36); Albumin 4.4 g/dl (3.5-5.0); Alkaline Phosphatase 128 U/L (38-126); Blood Urea Nitrogen 21 mg/dl (7-17); Calcium 9.6 mg/dl (8.4-10.2); Carbon Dioxide 23 mmol/L (22-30); Chloride 101 mmol/L (98-107); Direct Bilirubin 0.5 mg/dl (0.0-0.4); Estimated Creatinine Clearance 75 ml/min; Glucose 144 mg/dl (70-99); Potassium 4.3 mmol/L (3.5-5.1); Sodium 135 mmol/L (135-145); Total Bilirubin 1.1 mg/dl (0.2-1.3); Total Protein 7.1 g/dl (6.3-8.2); eGFR > 60.00
--- NOTE | 2023-09-15 07:58 | W.PN.UPDATE ---
Update Note
Progress Note Update
Patient seen with Dr. Kumar yesterday. We discussed the risks of the procedure with the patient and her sister. Given her extensive past medical history it was decided, along with cardiology, that PCI will be attempted again. If PCI is unsuccessful
then CT surgery will resume pre-operative work up and a high risk CABG will be discussed with the patient.
Sabi ALEJANDRO
Cardiac Surgery
--- NOTE | 2023-09-15 09:12 | PTCARENOTE ---
Assumed care of pt from corey snowden RN; Pt w/no c/o CP or SOB. Pt somewhat anxious re: upcoming repeat cardiac cath today. Emotional support provided. Pt's VS stable w/HR in the 50's-60's and SB/SR on telemetry monitoring. R radial & R brachial
access sites w/dressings C/D/I w/no signs or symptoms of bleeding or hematoma. Pt w/call berry within reach & plan of care ongoing.
[2023-09-15] MEDS: NEURONTIN 600 MG PO ×3 (09:45→22:20)
[2023-09-15] MEDS: FLUSH (NSS) 2 FLUSH IV (09:45)
[2023-09-15] MEDS: NON-FORMULARY ITEM 1 UNIT PO (09:45)
[2023-09-15] MEDS: LASIX 40 MG IV ×2 (09:45→17:26)
[2023-09-15] MEDS: LOW STRENGTH ASPIRIN 81 MG PO (09:46)
[2023-09-15] MEDS: IMDUR (EXTENDED RELEASE) 60 MG PO ×2 (09:46→17:23)
[2023-09-15] MEDS: LOPRESSOR 12.5 MG PO (09:46)
[2023-09-15] MEDS: LEXAPRO 20 MG PO (09:46)
[2023-09-15] MEDS: PLAVIX 75 MG PO (09:49)
[2023-09-15 12:11] LABS: Glucose - Point of Care 178 mg/dl (70-99)
[2023-09-15] MEDS: HEPARIN 25000 UNITS/250 ML IV (12:21)
[2023-09-15 13:34] LABS: APTT 96.5 Sec (23.4-35.0)
--- NOTE | 2023-09-15 15:09 | W.PN.CARDCBS ---
Today's Communication / Plan
-
Plan:
-Patient continues to have constant chest discomfort which worsens upon laying flat. Based on peak troponin of 0.053, this seems to be more related to her underlying pulmonary edema and volume overload given it would be unusual for IFR positive
lesion to cause/degree of resting discomfort.
-Continue with IV diuresis with strict ins and outs, daily upright weights close monitoring of renal function and electrolytes with repletion as needed. Her weights are slowly coming down.
-Initial presentation with chest discomfort and acute on chronic heart failure with preserved ejection fraction. She has had recent outpatient escalation in her diuretics with continued weight gain. proBNP 526. Chest x-ray with prior lobectomy
without acute superimposed processes noted.
-continue asa, plavix
-Above note, jardiance was listed on her last office visit med list, however does not appear to be listed on med list here. Would consider adding back if no contraindication for HFpEF especially in the setting of type 2 diabetes mellitus, last A1c
poorly controlled at 9.2%.
-Echo with preserved EF, no sig change compared to prior
-LDL 30. continue statin
-hgbA1c 9.2%. Defer to primary service for glucose control and education.
-Extensive and multiple discussions were had with the patient after I spoke to Dr. Mustapha Kumar from CT surgery and my interventional cardiology partners, Drs. Tye Elliott and Rodolfo Hein. Given her significant comorbid conditions, she is deemed
high risk for open heart surgery and patient is adamant about not wanting open heart surgery. Alternatively, we discussed the following management options: Medications versus medications and PCI to LAD plus/minus left circumflex. Initially she was
willing to undergo PCI in addition to medications however then when I went back to consent her for repeat heart catheterization and possible PCI to LAD, with her two sisters around, patient was hesitant to move forward after re-hearing potential
risks from heart catheterization/PCI which include but are not limited to possibility of bleeding, vascular injury, kidney injury, CVA/TIA, [place], need for urgent surgery or . In this setting, she now wants to work on optimizing medications and
reassess need/role for stents. It is unclear upon speaking to her what her true baseline activity level is however her sisters tell me that she has not been doing all that much over the last year. After lengthy discussions twice, her sister,
Otilia, then came out to let me and her nurse know that patient also has a DNR in place which was not brought up prior to today. We briefly discussed with the sister that if she would like to move forward and consider percutaneous options, we would
have to reverse her DNR. Otilia wanted us to hold off discussing this with the patient herself given how overwhelmed He was. For now plan is to optimize medications and her filling pressures and hold off on any invasive procedures.
Meron Valdez MD, [facility], [facility]
Impression / Plan
-
Primary Detacker: Dr. Singh
Assessment:
Presentation with chest discomfort, UE/LE swelling, ARCOS, weight gain
Acute on chronic HFpEF
Elevated troponin
CAD with mod to severe diffuse coronary artery calcification, at least 50% prox RCA stenosis, guide induced prox RCA dissection s/p PCI by cath 01/29/22
DM2
Peripheral neuropathy
Diabetic retinopathy
HTN
HLD
Iron def anemia
h/o lung cancer s/p RML and RLL resection in 07/1999
former tobacco use
COPD/asthma
DENNIS on CPAP
depression/anxiety
GERD
Calcific pancreatitis
essential tremor
PVD RLE
Obesity
ECHO 01/2022: EF 65 to 70%, no regional wall motion abnormalities noted, no significant valvular disease
ECHO 09/11/23: EF 60 to 65%, grade 1 diastolic dysfunction, trace MR and TR, prominent anterior fat pad, no significant change compared to prior
Plan:
-Patient continues to have constant chest discomfort which worsens upon laying flat. Based on peak troponin of 0.053, this seems to be more related to her underlying pulmonary edema and volume overload given it would be unusual for IFR positive
lesion to cause/degree of resting discomfort.
-Continue with IV diuresis with strict ins and outs, daily upright weights close monitoring of renal function and electrolytes with repletion as needed. Her weights are slowly coming down.
-Initial presentation with chest discomfort and acute on chronic heart failure with preserved ejection fraction. She has had recent outpatient escalation in her diuretics with continued weight gain. proBNP 526. Chest x-ray with prior lobectomy
without acute superimposed processes noted.
-continue asa, plavix
-Above note, jardiance was listed on her last office visit med list, however does not appear to be listed on med list here. Would consider adding back if no contraindication for HFpEF especially in the setting of type 2 diabetes mellitus, last A1c
poorly controlled at 9.2%.
-Echo with preserved EF, no sig change compared to prior
-LDL 30. continue statin
-hgbA1c 9.2%. Defer to primary service for glucose control and education.
-Extensive and multiple discussions were had with the patient after I spoke to Dr. Mustapha Kumar from CT surgery. Given her significant comorbid conditions, she is deemed high risk for open heart surgery and patient is adamant about not wanting it.
Initially she was willing to undergo PCI in addition to medications however then when I went back to consent her for repeat heart catheterization and possible PCI to LAD, with her sisters around, patient was hesitant to move forward understanding
potential risk from heart catheterization/PCI which include but are not limited to possibility of bleeding, vascular injury, kidney injury, CVA/TIA, [place], need for urgent surgery or . In the setting she wanted to work on optimizing medications
and reassess need/role for stent. It is unclear upon speaking to her what her true baseline activity level is however her sisters tell me that she has not been doing all that much over the last year. After lengthy discussions twice, her sister
came out to let us know that patient also has a DNR in place which was not brought up prior to today. We briefly discussed that if she would like to move forward and consider percutaneous options, we would have to reverse her DNR. For now plan is
to optimize medications and her filling pressures and hold off on any invasive procedures
Progress Note - Detacker
Subjective
Date of Service: September 15, 2023
Ongoing ARCOS and constant chest discomfort stan laying down.
Objective
Labs:
09/15/23 06:31
09/15/23 06:31
Labs
Hgb 13.4 g/dL (12.0-16.0) 09/15/23 06:31
Hct 40.1 % (37.0-47.0) 09/15/23 06:31
Plt Count 194 10^3/uL (130-400) 09/15/23 06:31
APTT 96.5 Sec (23.4-35.0) H 09/15/23 13:05
Sodium 135 mmol/L (135-145) 09/15/23 06:31
Potassium 4.3 mmol/L (3.5-5.1) 09/15/23 06:31
BUN 21 mg/dl (7-17) H 09/15/23 06:31
Creatinine 0.7 mg/dL (0.6-1.0) 09/15/23 06:31
Glucose 144 mg/dl (70-99) H 09/15/23 06:31
Vital Signs and I&O:
Vital Signs
Temp Pulse Resp BP Pulse Ox
98.3 F 91 18 110/65 98
09/15/23 10:53 09/15/23 11:00 09/15/23 10:53 09/15/23 10:55 09/15/23 10:53
Vital Signs
Temp Pulse Resp BP Pulse Ox
98.3 F 91 18 110/65 98
09/15/23 10:53 09/15/23 11:00 09/15/23 10:53 09/15/23 10:55 09/15/23 10:53
Intake & Output
09/13/23 09/14/23 09/15/23 09/16/23
06:59 06:59 06:59 06:59
Intake Total 1596 / 1596 240 / 240 2084 / 2084 300 / 300
Output Total 2750 / 2750 2099 / 2099 2900 / 2900 2049
Balance -1154 / -1154 -1860 / -1860 -815 / -815 -1750 / -1750
Physical Exam
Physical Exam
General: Well developed, well nourished in NAD, morbidly obese
Heart: Non displaced PMI, RRR, no murmurs, No S3, S4, no rubs,
Lungs: Coarse anterior breath sounds
Extremities: No clubbing, cyanosis and trace edema bilaterally.
Neuro: Grossly nonfocal, awake, alert
[2023-09-15] MEDS: NITROSTAT (SUBLINGUAL) 0.400000000000000022 MG SL (15:36)
--- NOTE | 2023-09-15 15:48 | PTCARENOTE ---
Pt called nursing staff to c/o 12/18 mid-sternal/upper abd 'pressure'. Pt reports this to be the same pain/pressure that brought her into the hospital & that has been occurring for the last few weeks. VS assessed & pt's VS stable w/HR 90's, BP
112/69, 96% RA, R 20. Pt given 1 SL Nitro as ordered w/good relief. Pt now resting comfortably in bed. Cardiology notified. Pt w/call berry within reach & plan of care ongoing.
[2023-09-15 17:01] LABS: Glucose - Point of Care 175 mg/dl (70-99)
[2023-09-15] MEDS: ZESTRIL 5 MG PO (17:23)
[2023-09-15] MEDS: NOVOLOG FLEXPEN 30 UNITS SC (17:25)
[2023-09-15] MEDS: NOVOLOG FLEXPEN SC (17:26)
[2023-09-15] MEDS: LOPRESSOR 37.5 MG PO (19:31)
[2023-09-15 20:05] LABS: APTT 86.4 Sec (23.4-35.0)
[2023-09-15] MEDS: LIPITOR 40 MG PO (22:20)
[2023-09-15] MEDS: MIRAPEX 0.25 MG PO (22:20)
[2023-09-15] MEDS: LANTUS 0.450000000000000011 UNITS SC (22:21)
[2023-09-15 22:25] LABS: Glucose - Point of Care 127 mg/dl (70-99)
--- NOTE | 2023-09-15 23:38 | PTCARENOTE ---
Pt received start of shift, HR SR. Heparin infusing at 1700units/hr. Pt appears more melancholic, but actively participates in conversation and makes jokes. Pt questioning how imdur/nitro works to prevent CP. Educated pt. pt states understanding. Pt
states she has started to feel dizzy when sitting up to side of bed, but feeling ceases after sitting up for a bit. Informed pt to notify RN if any further episodes and to not walk to bathroom alone. Pt denies any CP or SOB. Informed to notify RN if
any changes, call berry within reach.
[2023-09-16] VITALS (13 sets, daily range): BP systolic 92–125; BP diastolic 49–81; PULSE 63–65; O2SAT 98; BMI 37.0
[2023-09-16] MEDS: HEPARIN 25000 UNITS/250 ML IV ×2 (04:10→20:07)
[2023-09-16 05:33] LABS: Hematocrit 40.4 % (37.0-47.0); Hemoglobin 13.7 g/dL (12.0-16.0); Mean Corp Hgb Conc. 33.9 g/dL (33.0-37.0); Mean Corpuscular Volume 88.4 fL (81.0-99.0); Mean Platelet Volume 10.3 fL (7.4-10.4); Platelet Count 223 10^3/uL (130-400); Red Blood Cell Count 4.57 10^6/uL (4.20-5.40); Red Cell Dist. Width 15.7 % (11.5-14.5); White Blood Cell Count 12.1 10^3/uL (4.8-10.8)
[2023-09-16 05:35] LABS: APTT 83.8 Sec (23.4-35.0)
[2023-09-16 05:49] LABS: Blood Urea Nitrogen 25 mg/dl (7-17); Calcium 9.8 mg/dl (8.4-10.2); Carbon Dioxide 28 mmol/L (22-30); Chloride 96 mmol/L (98-107); Estimated Creatinine Clearance 58 ml/min; Glucose 174 mg/dl (70-99); Magnesium 2.2 mg/dl (1.6-2.3); Potassium 4.2 mmol/L (3.5-5.1); Sodium 136 mmol/L (135-145); eGFR > 60.00
[2023-09-16 07:45] LABS: Glucose - Point of Care 172 mg/dl (70-99)
[2023-09-16] MEDS: NOVOLOG FLEXPEN-LOW RESISTANCE 1 UNITS SC (07:57)
[2023-09-16] MEDS: NOVOLOG FLEXPEN 18 UNITS SC ×2 (07:57→13:05)
[2023-09-16] MEDS: PLAVIX 75 MG PO (08:20)
[2023-09-16] MEDS: IMDUR (EXTENDED RELEASE) 60 MG PO ×2 (08:20→18:30)
[2023-09-16] MEDS: LOW STRENGTH ASPIRIN 81 MG PO (08:20)
[2023-09-16] MEDS: LEXAPRO 20 MG PO (08:20)
[2023-09-16] MEDS: LOPRESSOR 37.5 MG PO (08:21)
[2023-09-16] MEDS: NEURONTIN 600 MG PO ×3 (08:22→21:38)
[2023-09-16] MEDS: LASIX 40 MG IV ×2 (08:22→17:18)
[2023-09-16] MEDS: NON-FORMULARY ITEM 1 UNIT PO (08:23)
--- NOTE | 2023-09-16 09:14 | W.PN.CARDCBS ---
Addendum entered and electronically signed by Meron Valdez MD 09/16/23 17:37:
I was asked to go back to speak with the patient and her sisters again as they told the nurse that she would now like to go through PCI tomorrow with Dr. Ryan Elliott. I had spoken to nursing beforehand and they did not report any recurrent chest
discomfort. I went to bedside and spoke to the patient and her sisters. Patient's concerned due to how she feels today and her main symptoms being her legs feeling shaky with 1 episode of lightheadedness and headache but no recurrent chest
discomfort. I clarified to them that the long-acting nitrates can have a side effect of a headache which usually gets resolved with Tylenol as her body gets used to it the headaches would subside over the next day or 2. The lowest blood pressure
that had been recorded was 96 systolic while patient was in bed asymptomatic. The time that she complained of some lightheadedness her blood pressure was noted to be systolic of 112. Her heart rates previously before increasing her Lopressor had
been in the mid to high 80s and now has been in the mid 60s. I clarified to them that her coronary disease i would not be causing any of her symptoms and therefore intervening through percutaneous measures would not necessarily improve her
symptoms. However despite an extensive repeat discussion with them, they would like to move forward with with high risk PCI tomorrow. Given she is still adamant about never wanting open heart surgery, there will be no surgical backup. This was
made clear to patient and her family. She is also agreeable to reversing her DNR for the procedure. I rediscussed the potential risk of the procedure and they are in agreement with moving forward. I also reiterated that some of her symptoms being
atypical may not resolve or improve significantly post PCI and they understand this as well discussed all of the above with Dr. Ryan Elliott. Patient will be made n.p.o. over midnight.
Meron Valdez MD, [facility], [facility]
Addendum entered and electronically signed by Meron Valdez MD 09/16/23 10:39:
Jardiance was previous stopped due to recurrent yeast infections and cost so will DC and not reinitiate SGLT2i
Meron Valdez MD, [facility], [facility]
Original Note:
Today's Communication / Plan
-
Plan:
-Patient in general reports atypical constant chest discomfort with worsens intermittently and with laying flat. Not sure if this is truly related and can be attributed to underlying IFR positive coronary disease given ongoing episodes of rest pain
with a peak troponin of 0.053. Unclear if this is due to underlying pulmonary edema.
-She had an episode yesterday afternoon and was given a sublingual nitroglycerin. Based on this her Imdur was uptitrated to 60 mg twice daily and Lopressor was uptitrated to 37.5 mg twice daily. She tolerated both of these changes so far without
any hemodynamic changes. She has not had any recurrent symptoms overnight.
-Continue with IV diuresis with strict ins and outs, daily upright weights close monitoring of renal function and electrolytes with repletion as needed. Her weights are slowly coming down.
-Initial presentation with chest discomfort and acute on chronic heart failure with preserved ejection fraction. She has had recent outpatient escalation in her diuretics with continued weight gain. proBNP 526. Chest x-ray with prior lobectomy
without acute superimposed processes noted.
-continue asa, plavix
-Above note, jardiance was listed on her last office visit med list, however does not appear to be listed on med list here. Will resume Jardiance for HFpEF especially in the setting of type 2 diabetes mellitus, last A1c poorly controlled at 9.2%.
-Echo with preserved EF, no sig change compared to prior
-LDL 30. continue statin
-hgbA1c 9.2%. Defer to primary service for glucose control and education.
-We rediscussed management options and for now given no recurrent symptoms overnight she would like to continue pursuing medical therapy only unless symptoms return in which case we would re-discuss role of PCI and reversing her DNR for the
procedure.
Impression / Plan
-
Primary Ambulance Dispatcher: Dr. Singh
Assessment:
Presentation with chest discomfort, UE/LE swelling, ARCOS, weight gain
Acute on chronic HFpEF
Elevated troponin
CAD with mod to severe diffuse coronary artery calcification, at least 50% prox RCA stenosis, guide induced prox RCA dissection s/p PCI by cath 01/29/22
DM2
Peripheral neuropathy
Diabetic retinopathy
HTN
HLD
Iron def anemia
h/o lung cancer s/p RML and RLL resection in 07/1999
former tobacco use
COPD/asthma
DENNIS on CPAP
depression/anxiety
GERD
Calcific pancreatitis
essential tremor
PVD RLE
Obesity
ECHO 01/2022: EF 65 to 70%, no regional wall motion abnormalities noted, no significant valvular disease
ECHO 09/11/23: EF 60 to 65%, grade 1 diastolic dysfunction, trace MR and TR, prominent anterior fat pad, no significant change compared to prior
Plan:
-Patient in general reports atypical constant chest discomfort with worsens intermittently and with laying flat. Not sure if this is truly related and can be attributed to underlying IFR positive coronary disease given ongoing episodes of rest pain
with a peak troponin of 0.053. Unclear if this is due to underlying pulmonary edema.
-She had an episode yesterday afternoon and was given a sublingual nitroglycerin. Based on this her Imdur was uptitrated to 60 mg twice daily and Lopressor was uptitrated to 37.5 mg twice daily. She tolerated both of these changes so far without
any hemodynamic changes. She has not had any recurrent symptoms overnight.
-Continue with IV diuresis with strict ins and outs, daily upright weights close monitoring of renal function and electrolytes with repletion as needed. Her weights are slowly coming down.
-Initial presentation with chest discomfort and acute on chronic heart failure with preserved ejection fraction. She has had recent outpatient escalation in her diuretics with continued weight gain. proBNP 526. Chest x-ray with prior lobectomy
without acute superimposed processes noted.
-continue asa, plavix
-Above note, jardimonica was listed on her last office visit med list, however does not appear to be listed on med list here. Will resume for HFpEF especially in the setting of type 2 diabetes mellitus, last A1c poorly controlled at 9.2%.
-Echo with preserved EF, no sig change compared to prior
-LDL 30. continue statin
-hgbA1c 9.2%. Defer to primary service for glucose control and education.
-We rediscussed management options and for now given no recurrent symptoms overnight she would like to continue pursuing medical therapy only unless symptoms return in which case we would re-discuss role of PCI and reversing her DNR for the
procedure.
Progress Note - Ambulance Dispatcher
Subjective
Date of Service: September 16, 2023
No repeat episodes overnight
Objective
Labs:
09/16/23 05:11
09/16/23 05:11
Labs
Hgb 13.7 g/dL (12.0-16.0) 09/16/23 05:11
Hct 40.4 % (37.0-47.0) 09/16/23 05:11
Plt Count 223 10^3/uL (130-400) 09/16/23 05:11
APTT 83.8 Sec (23.4-35.0) H 09/16/23 05:11
Sodium 136 mmol/L (135-145) 09/16/23 05:11
Potassium 4.2 mmol/L (3.5-5.1) 09/16/23 05:11
BUN 25 mg/dl (7-17) H 09/16/23 05:11
Creatinine 0.9 mg/dL (0.6-1.0) 09/16/23 05:11
Glucose 174 mg/dl (70-99) H 09/16/23 05:11
Vital Signs and I&O:
Vital Signs
Temp Pulse Resp BP Pulse Ox
97.6 F 71 16 104/63 96
09/16/23 07:28 09/15/23 22:19 09/16/23 07:28 09/15/23 22:19 09/16/23 07:28
Vital Signs
Temp Pulse Resp BP Pulse Ox
97.6 F 71 16 104/63 96
09/16/23 07:28 09/15/23 22:19 09/16/23 07:28 09/15/23 22:19 09/16/23 07:28
Intake & Output
09/14/23 09/15/23 09/16/23 09/17/23
06:59 06:59 06:59 06:59
Intake Total 240 / 240 2085 / 2085 1020 / 1020
Output Total 2100 / 2100 2900 / 2900 3900 / 3900
Balance -1860 / -1860 -815 / -815 -2880 / -2880
Physical Exam
Physical Exam
General: Well developed, well nourished in NAD, morbidly obese
Heart: Non displaced PMI, RRR, no murmurs, No S3, S4, no rubs,
Lungs: Coarse anterior breath sounds
Extremities: No clubbing, cyanosis and trace edema bilaterally.
Neuro: Grossly nonfocal, awake, alert
[2023-09-16 11:48] LABS: Glucose - Point of Care 275 mg/dl (70-99)
[2023-09-16] MEDS: NOVOLOG FLEXPEN-LOW RESISTANCE 3 UNITS SC (13:05)
--- NOTE | 2023-09-16 13:15 | CM ---
Addendum entered by LIDIA Wilkerson 09/16/23 15:27:
Correction to below. Patient shared Vascular Sx but this does not appear to be the case.
Addendum entered by LIDIA Wilkerson 09/16/23 15:23:
Met w/ patient at bedside.
Pt. shares that she is anticipating surgery tomorrow w/ Vascular Sx. She is hopeful that surgery will fix her dizziness. She confirms that she did not do well w/ PT. She feels that she will be able to go home at time of DC with supportive family.
Pt. denies history of SNF. She reports that she is being seen by home RN thru [facility].
Will follow post surgery for needs.
At this time, patient prefers to return to home w/ family if able.
Original Note:
CM following for DC planning needs.
Reviewed initial assessment. Pt. resides w/ sister in a private, 1 story home. Functionally, patient is indep. w/ ADLs, mobility with RW and SPC.
Noted PT evaluation. Recommendation is for SNF.
Will discuss w/ patient.
Will follow closely for DC planning needs.
--- NOTE | 2023-09-16 13:56 | PTCARENOTE ---
Pt c/o lightheadedness joe standing and working with PT. She reported feeling 'less lightheaded' the second time she was assisted OOB to BR with rolling walker. She required supervision, standby assist.
--- NOTE | 2023-09-16 15:54 | PTCARENOTE ---
Pt said she changed her mind and is now in favor of high risk PCI, her 2 sisters are visiting and have asked for the Dr to be notified of her decision. Wilma Wise notified, she notified Dr Valdez. Dr Valdez came and spoke with Pt.
[2023-09-16 16:01] LABS: Glucose - Point of Care 87 mg/dl (70-99)
[2023-09-16] MEDS: NOVOLOG FLEXPEN SC (17:18)
[2023-09-16] MEDS: NOVOLOG FLEXPEN-LOW RESISTANCE SC (17:24)
--- NOTE | 2023-09-16 17:36 | W.PN.HOSP.TC ---
Today's Communication/Plan
-
All discussed with the patient and her sister
Discussed with the nurse
Assessment / Plan
Assessment / Plan
Physical exam:
General: Awake, alert and oriented x3, not in distress and holds appropriate conversation.
HEENT: No active discharge, ecchymosis or bruising, moist lips, tongue and mucous membrane.
Eyes: No discharge or red conjunctiva, no nystagmus, pupils are reactive and equal
Neck:Supple, no JVD no bruit no goiter.
Respiratory: Normal AP contour and diameter, normal chest wall movement, normal respiratory effort, no respiratory distress,
Lungs: Good air entry bilaterally, no wheezing or rhonchi, no rales or crackles
Heart: S1, S2 regular, normal rate, no added sound.
Gastrointestinal: Positive bowel sounds, soft, nontender, no guarding or rigidity or organomegaly
Musculoskeletal: , no chest wall abnormality or tenderness. All joints and extremities have good range of motion, no muscle tenderness or any joint swelling or tenderness.
Extremities: No pitting edema, good peripheral pulses, good range of motion
Skin: Warm and dry, no ulceration, normal color.
Neurological: Awake, alert and oriented x3, moves extremities freely, no facial droop, hold appropriate conversation, normal mentation
Psychiatric: Normal mood, normal thought and judgment, normal affect,
73-year-old female past medical history of coronary artery disease, HFpEF, hypertension, hyperlipidemia, diabetes, peripheral neuropathy, diabetic retinopathy, COPD, obstructive sleep apnea, lung cancer status post right middle lobe lobectomy and
right lower lobe lobectomy in 1999, lumbar degenerative disease, chronic anemia/iron deficiency, obesity, anxiety/depression, GERD, essential tremor, peripheral vascular disease, presenting for weight gain over past month, lower extreme edema and
chest discomfort.
Patient overnight after admission developed at around 4 AM similar pressure-like sensation of her chest at this time now radiating to her left shoulder and left arm relieved with 2 to nitroglycerin sublingual
s/p cardiac cath morning 09/14/23
CONCLUSIONS
1. Multivessel coronary artery disease with iFR positive LAD stenosis, high-grade stenosis in the mid circumflex proximal to OM 2, and moderate diffuse disease in the RCA/PDA/PLB
2. Mildly elevated right and left ventricular filling pressure
# Acute on chronic HFpEF exacerbation
-Chest x-ray shows no acute process
-Cardiac BNP of 526
-Check I's and O's, daily weights
-40 IV Lasix BID to be continued
-Daily weight and intake and output
Recheck lab
- echo does not show any wall motion abnormality and no changes from prior of 2021
-PCWP elevated 09/14/23
-appreciate cardiology
# Chest pain possibly secondary to NSTEMI
# History of coronary artery disease with at least 50% proximal RCA stenosis
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
-Troponin initially negative, second is 0.053, 2 subsequent week now again negative
-s/p cardiac cath MVD; CTS consulted; not surgical candidate and plan for complicated cath this afternoon
-Continue aspirin, statin; PLavix now on hold
-Continue Imdur (dosing increased per cardiology), Jardiance, Lopressor, lisinopril
-Per cardiothoracic surgery not a candidate for CABG while high risk for complicated cath offered but she declined labs of the pain symptomatic she may reconsider a cardiac cath,
Had a long conversation with the patient and the family.
Essential hypertension
-Continue lisinopril, metoprolol
Hyperlipidemia
-Continue statin
Type 2 diabetes
-Continue Lantus 45 units at night
-Continue 30 units NovoLog 3 times daily
-Insulin sliding scale
-home lantus dosing resumed
Peripheral neuropathy
-Continue gabapentin
Diabetic retinopathy
COPD
Obstructive sleep apnea
Lung cancer status post RML lobectomy, RLL lobectomy
Lumbar degenerative disease
Chronic anemia/iron deficiency anemia
Obesity
Anxiety/depression
-Continue Lexapro
GERD
-Continue PPI
Essential tremor
-Continue pramipexole
Peripheral vascular disease
Former smoker
Full code
DVT prophylaxis�heparin
Cardiac diet
Anticipated Discharge: > 48 hours
Subjective/Interval History
-
Date of Service: September 16, 2023
Seen and examined, accompanied by 2 sisters at the bedside and she was repeated to confirm of the sisters, on heparin drip, complaining of reproducible centrally located chest pain or shortness of breath and feeling fatigued tired worse with any
kind exertional activity, heart rate is low 60s also pressure at the low normal. Denies any bleeding event or change in stool or urine color
Objective Data
-
Labs:
Laboratory Results
09/16/23
05:11
WBC 12.1 H
Hgb 13.7
Hct 40.4
Plt Count 223
APTT 83.8 H
Sodium 136
Potassium 4.2
Chloride 96 L
Carbon Dioxide 28
BUN 25 H
Creatinine 0.9
Glucose 174 H
Calcium 9.8
Vital Signs:
Vital Signs
Temp Pulse Resp BP Pulse Ox
98.3 F 65 16 96/49 96
09/16/23 14:55 09/16/23 13:00 09/16/23 14:55 09/16/23 12:05 09/16/23 14:55
I&O
09/15/23 09/16/23 09/17/23
07:59 07:59 07:59
Intake Total 5 / 5 1020 / 1020 480 / 480
Output Total 2900 / 2900 3900 / 3900
Balance -815 / -815 -2880 / -2880 480 / 480
Review of Systems
-
All other systems: Reviewed and negative
[2023-09-16 18:27] LABS: Glucose - Point of Care 207 mg/dl (70-99)
[2023-09-16] MEDS: NOVOLOG FLEXPEN 30 UNITS SC (18:28)
[2023-09-16] MEDS: ZESTRIL 5 MG PO (18:30)
[2023-09-16] MEDS: LOPRESSOR 25 MG PO (20:31)
[2023-09-16] MEDS: LANTUS 0.450000000000000011 UNITS SC (21:37)
[2023-09-16 21:38] LABS: Glucose - Point of Care 105 mg/dl (70-99)
[2023-09-16] MEDS: LIPITOR 40 MG PO (21:38)
[2023-09-16] MEDS: MIRAPEX 0.25 MG PO (21:38)
--- NOTE | 2023-09-16 23:03 | PTCARENOTE ---
Pt received at start of shift, HR SR. Heparin infusing at 1700 units/hr. Informed pt of NPO status at 0000, pt states understanding. Pt denies any CP, SOB, or lightheadedness/dizziness on initial assessment. Informed to notify RN if any changes,
call berry within reach.
Around ~2240, pt used call berry. pt reports feeling lightheaded, dizzy, nauseous, and shaky/weak legs when sitting on side of bed. Lightheadedness and nauseousness continued after back in bed. BP 92/49.
[2023-09-17] VITALS (13 sets, daily range): BP systolic 97–145; BP diastolic 57–94; PULSE 71; BMI 36.7
[2023-09-17 06:27] LABS: APTT 114.6 Sec (23.4-35.0)
[2023-09-17 06:59] LABS: Blood Urea Nitrogen 29 mg/dl (7-17); Calcium 9.8 mg/dl (8.4-10.2); Carbon Dioxide 28 mmol/L (22-30); Chloride 96 mmol/L (98-107); Estimated Creatinine Clearance 58 ml/min; Glucose 166 mg/dl (70-99); Potassium 4.3 mmol/L (3.5-5.1); Sodium 132 mmol/L (135-145); eGFR > 60.00
[2023-09-17 07:29] LABS: Glucose - Point of Care 180 mg/dl (70-99)
[2023-09-17] MEDS: NOVOLOG FLEXPEN SC ×3 (07:46→16:42)
--- NOTE | 2023-09-17 08:00 | PTCARENOTE ---
Assumed care of pt from prev nsg shift. Pt AAOx3 w/no c/o CP or SOB. Pt is c/o dizziness & feels 'it's from low BP's' & 'the higher dose of metoprolol'. Pt did refuse her AM dose of metoprolol & would like to speak w/the order picker/assembler about the
increased dosage. Pt's VS stable, except for the lower BP's; MD is aware. Pt w/heparin IV drip infusing at ordered rate through patent IV line. Plan of care ongoing.
[2023-09-17] MEDS: NOVOLOG FLEXPEN-LOW RESISTANCE 1 UNITS SC ×3 (08:58→16:41)
[2023-09-17] MEDS: LOW STRENGTH ASPIRIN 81 MG PO (08:59)
[2023-09-17] MEDS: NON-FORMULARY ITEM 1 UNIT PO (08:59)
[2023-09-17] MEDS: NEURONTIN 600 MG PO ×3 (08:59→22:15)
[2023-09-17] MEDS: PLAVIX 75 MG PO (08:59)
[2023-09-17] MEDS: IMDUR (EXTENDED RELEASE) 60 MG PO ×2 (08:59→17:39)
[2023-09-17] MEDS: LEXAPRO 20 MG PO (08:59)
[2023-09-17] MEDS: LOPRESSOR PO (09:04)
--- NOTE | 2023-09-17 10:30 | PTCARENOTE ---
Report given to Isha in the film laboratory technician; Pt transported to laborer car barn in bed. Heparin drip stopped just before transport. Plan of care ongoing.
[2023-09-17 11:27] LABS: ACT-LR - POC 281 Seconds (116-155)
[2023-09-17 11:36] LABS: ACT-LR - POC 343 Seconds (116-155)
--- NOTE | 2023-09-17 11:45 | CM ---
CM following for DC planning needs.
Pt. for CATH/ PCI today.
Will cont. to follow.
[2023-09-17 12:02] LABS: ACT-LR - POC 269 Seconds (116-155)
[2023-09-17 12:22] LABS: Glucose - Point of Care 174 mg/dl (70-99)
--- NOTE | 2023-09-17 12:22 | ITS.CL.CATH ---
Field Counsel - Catheterization
Cardiac Catheterization
Procedure Report:
ANGIOPLASTY REPORT
Date of Procedure: September 17, 2023
Referring: Dr. Bobo Singh
INDICATIONS: Chest pain with coronary disease and elevated troponin
PROCEDURES:
1. Successful stenting of the LAD with overlapping 2.25 x 18 mm and 2.0 x 18 mm [place] stents that were implanted at nominal pressures and postdilated with a 2.25 mm noncompliant balloon
ACCESS: Right radial artery, 6 [place] sheath
ANGIOPLASTY REPORT: Informed consent was obtained. Ultrasound guidance was utilized to gain access into the right radial artery and a 6 [place] sheath was inserted. A baby J guidewire was advanced after difficulty was encountered when passing a
0.035 inch J-wire. A 6 [place] EBU 3.5 guiding catheter was advanced over the baby J-wire. The hydrophilic wire was removed and exchanged for 0.035 inch J-wire which was positioned in the proximal ascending thoracic aorta. A 6 [place] EBU 3.0 guide
catheter was advanced over the J-wire and manipulated to engage the ostium of the left main.
Intravenous heparin was administered and the ACT was monitored throughout the procedure. The patient arrived to the procedure room on background therapy of aspirin and clopidogrel.
A short [place] guidewire was advanced to the apical LAD and a long BMW guidewire was advanced into the proximal first diagonal branch and into the distal vessel. Balloon predilation was performed using a 2.0 mm balloon and was followed by placement of
a 2.25 x 18 mm [place] stent that was implanted at nominal pressures. The patient experienced chest heaviness and there mild haziness beyond the stented segment and the decision was made to place a second overlapping stent. A 2.0 x 18 mm [place] stent
was then advanced and positioned in an overlapping fashion and implanted at nominal pressures. The entire segment was postdilated with 2.25 mm noncompliant balloon to high pressures with a nice angiographic result
COMPLICATIONS: None
RADIATION SUMMARY: Fluoro Time (min): 12.1, Dose (mGy): 768, DAP (Gy.cm2) : 47
CONCLUSION
1. Successful stenting of the proximal to mid LAD with overlapping 2.25 x 18 and 2.0 x 18 mm [place] stents that were postdilated with a 2.25 mm noncompliant balloon
RECOMMENDATIONS
1. Uninterrupted dual antiplatelet therapy for 12 months
2. Hemoglobin A1c has been poorly controlled. Again stressed the need for tighter control of modifiable risks including blood pressure, lipids, and diabetes
Copy to: Dr. Bobo Singh
--- NOTE | 2023-09-17 12:37 | PTCARENOTE ---
Rec'd report from Phillip in the helper animal laboratory; Rec'd pt back in rm AAOx3, w/c/o 07/18 'mild' chest pressure. 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 Pt w/VS stable, BP 102/85, HR 72. SpO2 on R hand 97% on RA. Pt w/R radial band in
place w/no signs or symptoms of bleeding or hematoma. Pt's family back at bedside. Pt w/call berry within reach & no addtl needs at this time.
[2023-09-17] MEDS: LASIX IV (12:43)
[2023-09-17] MEDS: TUMS 1 TABLET PO (13:25)
[2023-09-17] MEDS: MAALOX 30 ML PO (13:25)
[2023-09-17] MEDS: NITROSTAT (SUBLINGUAL) 0.400000000000000022 MG SL ×2 (14:29→15:52)
--- NOTE | 2023-09-17 15:36 | W.PN.HOSP.TC ---
Today's Communication/Plan
-
Discussed with the patient and multiple family by the bedside
Discussed with the nurse
Assessment / Plan
Assessment / Plan
Physical exam:
General: Lethargic but oriented x3, not in distress and holds appropriate conversation.
HEENT: No active discharge, ecchymosis or bruising, moist lips, tongue and mucous membrane.
Eyes: No discharge or red conjunctiva, no nystagmus, pupils are reactive and equal
Neck:Supple, no JVD no bruit no goiter.
Respiratory: Normal AP contour and diameter, normal chest wall movement, normal respiratory effort, no respiratory distress,
Lungs: Good air entry bilaterally, no wheezing or rhonchi, no rales or crackles
Heart: S1, S2 regular, normal rate, no added sound.
Gastrointestinal: Positive bowel sounds, soft, nontender, no guarding or rigidity or organomegaly
Musculoskeletal: , no chest wall abnormality or tenderness. All joints and extremities have good range of motion, no muscle tenderness or any joint swelling or tenderness.
Extremities: No pitting edema, good peripheral pulses, good range of motion
Skin: Warm and dry, no ulceration, normal color.
73-year-old female past medical history of coronary artery disease, HFpEF, hypertension, hyperlipidemia, diabetes, peripheral neuropathy, diabetic retinopathy, COPD, obstructive sleep apnea, lung cancer status post right middle lobe lobectomy and
right lower lobe lobectomy in 1999, lumbar degenerative disease, chronic anemia/iron deficiency, obesity, anxiety/depression, GERD, essential tremor, peripheral vascular disease, presenting for weight gain over past month, lower extreme edema and
chest discomfort.
Patient overnight after admission developed at around 4 AM similar pressure-like sensation of her chest at this time now radiating to her left shoulder and left arm relieved with 2 to nitroglycerin sublingual
s/p cardiac cath morning 09/14/23
CONCLUSIONS
1. Multivessel coronary artery disease with iFR positive LAD stenosis, high-grade stenosis in the mid circumflex proximal to OM 2, and moderate diffuse disease in the RCA/PDA/PLB
2. Mildly elevated right and left ventricular filling pressure
# Acute on chronic HFpEF exacerbation
-Chest x-ray shows no acute process
-Cardiac BNP of 526
-Check I's and O's, daily weights
-40 IV Lasix BID to be continued
-Daily weight and intake and output
-Recheck lab
- echo does not show any wall motion abnormality and no changes from prior of 2021
-PCWP elevated 09/14/23
-appreciate cardiology
# Chest pain possibly secondary to NSTEMI
# History of coronary artery disease with at least 50% proximal RCA stenosis
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
-Not bleeding cardiac cath eventually had a 2 stent placed in
Continue dual antiplatelet aspirin and Plavix
Beta-richard
Statin
Cardio input appreciated
Close monitoring
Essential hypertension
-Continue lisinopril, metoprolol
Hyperlipidemia
-Continue statin
Type 2 diabetes
-Continue Lantus 45 units at night
-Continue 30 units NovoLog 3 times daily
-Insulin sliding scale
-home lantus dosing resumed
Peripheral neuropathy
-Continue gabapentin
Diabetic retinopathy
COPD
Obstructive sleep apnea
Lung cancer status post RML lobectomy, RLL lobectomy
Lumbar degenerative disease
Chronic anemia/iron deficiency anemia
Obesity
Anxiety/depression
-Continue Lexapro
GERD
-Continue PPI
Essential tremor
-Continue pramipexole
Peripheral vascular disease
Former smoker
Full code
DVT prophylaxis�heparin
Cardiac diet
Anticipated Discharge: > 48 hours
Subjective/Interval History
-
Date of Service: September 17, 2023
Seen and examined, seen for cardiac cath, sleepy and lethargic, complaining of the headache, complaining of some some tightness with chest pain after the cath otherwise no shortness of breath or fever or chills or cough or congestion, heart rate and
blood pressure better than before
Objective Data
-
Labs:
Laboratory Results
09/17/23 09/17/23
05:29 12:37
APTT 114.6 H Cancelled
Sodium 132 L
Potassium 4.3
Chloride 96 L
Carbon Dioxide 28
BUN 29 H
Creatinine 0.9
Glucose 166 H
Calcium 9.8
Vital Signs:
Vital Signs
Temp Pulse Resp BP Pulse Ox
97.8 F 76 16 145/64 92
09/17/23 12:40 09/17/23 15:00 09/17/23 12:40 09/17/23 14:00 09/17/23 14:00
I&O
09/16/23 09/17/23 09/18/23
07:59 07:59 07:59
Intake Total 1020 / 1020 1680 / 1680 480 / 480
Output Total 3900 / 3900 2800 / 2800 400 / 400
Balance -2880 / -2880 -1120 / -1120 80 / 80
Review of Systems
-
All other systems: Reviewed and negative
[2023-09-17] MEDS: LASIX 40 MG IV (15:51)
[2023-09-17] MEDS: FLUSH (NSS) 2 FLUSH IV (15:52)
[2023-09-17] MEDS: TYLENOL 650 MG PO (15:53)
--- NOTE | 2023-09-17 16:03 | PTCARENOTE ---
Pt has had 'indigestion', then 'chest pressure' & mid-epigastric pain, rating at 3-5/10 intermittently since approx. 1325 s/p repeat cardiac cath. Pt given Maalox at 1325, then 1 SL Nitro at 1429, and 1 Tums chewable at 1510. Pt stated at 1540 that
her 'indigestion' was better but that she is still having 'chest pressure' & 'feels terrible'. Another PRN SL Nitro administered & Tylenol PO given as ordered. Pt's VS stable w/BP 127/77, HR 70's. R radial band intact w/9cc of air removed so far,
w/no signs or symptoms of bleeding or hematoma. Plan of care ongoing.
--- NOTE | 2023-09-17 16:19 | PN.CDI ---
CDI
- -
CDI:
Physician Documentation Request
Admit Date: 09/11/23 16:40
Dear Doctor
Please review the following and provide your response in the progress notes.
Clinical Indicators:
Pt admitted with Acute on Chronic HFpEF / Possible NSTEMI s/p Cardiac cath with stenting
Sodium labs are as below/Pt did get IVFs
09/13/23 09/14/23 09/17/23
06:01 04:34 05:29
Sodium 134 L 134 L 132 L
Based on the above, could you clarify in the progress notes, the appropriate diagnosis, if significant, that supports the above abnormalities and additional evaluation, monitoring and/or treatment rendered:
Hyponatremia
Abnormal lab value only
Other
Use of terms such as suspected, likely, concern for, or probable (associated with a specific diagnosis that is being evaluated, monitored, or treated as if it exists) are acceptable and can be coded in the inpatient setting, when documented at the
time of discharge.
Thank you,
Mariaa Bean RN
CDI Specialist
[place] [facility]
Please use your independent medical judgment in providing your response.
[2023-09-17 16:40] LABS: Glucose - Point of Care 195 mg/dl (70-99)
[2023-09-17] MEDS: NOVOLOG FLEXPEN 30 UNITS SC (16:42)
[2023-09-17] MEDS: ZESTRIL 5 MG PO (17:37)
[2023-09-17] MEDS: LOPRESSOR 25 MG PO (19:49)
[2023-09-17] MEDS: LANTUS 0.450000000000000011 UNITS SC (19:55)
[2023-09-17 19:56] LABS: Glucose - Point of Care 183 mg/dl (70-99)
[2023-09-17] MEDS: MIRAPEX 0.25 MG PO (22:15)
[2023-09-17] MEDS: LIPITOR 40 MG PO (22:15)
--- NOTE | 2023-09-17 23:40 | PTCARENOTE ---
Received pt at handoff. AOx3. R radial is c/d/i. R brachial site is METAL POLISHER and ecchymotic. Pt is ambulatory to bathroom w/ rolling walker and assist x1. No c/o dizziness, SOB, pain. Tele - SR. HR 50-70s. Currently in bed; call berry w/in reach.
[2023-09-18 03:39] VITALS: BMI 36.7
[2023-09-18 03:45] VITALS: BP 103/51
[2023-09-18 03:57] LABS: Hematocrit 41.2 % (37.0-47.0); Hemoglobin 13.5 g/dL (12.0-16.0); Mean Corp Hgb Conc. 32.8 g/dL (33.0-37.0); Mean Corpuscular Hgb 29.5 pg (27.0-31.0); Mean Corpuscular Volume 90.2 fL (81.0-99.0); Mean Platelet Volume 10.1 fL (7.4-10.4); Platelet Count 222 10^3/uL (130-400); Red Blood Cell Count 4.57 10^6/uL (4.20-5.40); Red Cell Dist. Width 15.7 % (11.5-14.5); White Blood Cell Count 12.1 10^3/uL (4.8-10.8)
[2023-09-18 04:20] LABS: Blood Urea Nitrogen 25 mg/dl (7-17); Calcium 10.1 mg/dl (8.4-10.2); Carbon Dioxide 25 mmol/L (22-30); Chloride 100 mmol/L (98-107); Estimated Creatinine Clearance 65 ml/min; Glucose 96 mg/dl (70-99); Potassium 4.4 mmol/L (3.5-5.1); Sodium 137 mmol/L (135-145); eGFR > 60.00
[2023-09-18 07:03] VITALS: BP 102/70
[2023-09-18 07:06] LABS: Glucose - Point of Care 101 mg/dl (70-99)
[2023-09-18] MEDS: NEURONTIN 600 MG PO (07:55)
[2023-09-18] MEDS: FLUSH (NSS) 1 FLUSH IV (07:55)
[2023-09-18] MEDS: LOW STRENGTH ASPIRIN 81 MG PO (07:56)
[2023-09-18] MEDS: PLAVIX 75 MG PO (07:56)
[2023-09-18] MEDS: NON-FORMULARY ITEM 1 UNIT PO (07:56)
[2023-09-18] MEDS: LOPRESSOR 25 MG PO (07:56)
[2023-09-18] MEDS: LEXAPRO 20 MG PO (07:56)
[2023-09-18] MEDS: IMDUR (EXTENDED RELEASE) 60 MG PO (07:56)
[2023-09-18] MEDS: NOVOLOG FLEXPEN-LOW RESISTANCE SC (07:56)
[2023-09-18] MEDS: LASIX 40 MG IV (08:03)
[2023-09-18] MEDS: FLUSH (NSS) 2 FLUSH IV (08:04)
[2023-09-18] MEDS: NOVOLOG FLEXPEN 18 UNITS SC ×2 (08:09→11:50)
--- NOTE | 2023-09-18 08:49 | W.PN.HOSP.TC ---
Today's Communication/Plan
-
Cleared by cardiology for discharge today
Assessment / Plan
Assessment / Plan
73-year-old female past medical history of coronary artery disease, HFpEF, hypertension, hyperlipidemia, diabetes, peripheral neuropathy, diabetic retinopathy, COPD, obstructive sleep apnea, lung cancer status post right middle lobe lobectomy and
right lower lobe lobectomy in 1999, lumbar degenerative disease, chronic anemia/iron deficiency, obesity, anxiety/depression, GERD, essential tremor, peripheral vascular disease, presenting for weight gain over past month, lower extreme edema and
chest discomfort.
Patient overnight after admission developed at around 4 AM similar pressure-like sensation of her chest at this time now radiating to her left shoulder and left arm relieved with 2 to nitroglycerin sublingual
s/p cardiac cath morning 09/14/23
CONCLUSIONS
1. Multivessel coronary artery disease with iFR positive LAD stenosis, high-grade stenosis in the mid circumflex proximal to OM 2, and moderate diffuse disease in the RCA/PDA/PLB
2. Mildly elevated right and left ventricular filling pressure
# Acute on chronic HFpEF exacerbation
-Chest x-ray shows no acute process
-Cardiac BNP of 526
-Check I's and O's, daily weights
- resolving on Lasix 40 mg IV twice daily, cleared by cardiology for discharge on Lasix 40 mg p.o. bid
- echo does not show any wall motion abnormality and no changes from prior of 2021
-PCWP elevated 09/14/23
-Follow-up with cardiology in the office
# Chest pain possibly secondary to NSTEMI
# History of coronary artery disease with at least 50% proximal RCA stenosis
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
-Not bleeding, cardiac cath eventually had a 2 stent placed in
Continue dual antiplatelet aspirin and Plavix
Cardiology recommends changing metoprolol to metoprolol succinate
Statin
Follow-up with cardiology in the office
Essential hypertension
-Continue lisinopril, metoprolol
Hyperlipidemia
-Continue statin
Type 2 diabetes
-Continue Lantus 45 units at night
-Continue 30 units NovoLog 3 times daily
-Insulin sliding scale
-home lantus dosing resumed
Peripheral neuropathy
-Continue gabapentin
Diabetic retinopathy
COPD
Obstructive sleep apnea
Lung cancer status post RML lobectomy, RLL lobectomy
Lumbar degenerative disease
Chronic anemia/iron deficiency anemia
Obesity
Anxiety/depression
-Continue Lexapro
GERD
-Continue PPI
Essential tremor
-Continue pramipexole
Peripheral vascular disease
Former smoker
DVT prophylaxis�subcu heparin
Full code
Physical Exam
General: Morbidly obese, no acute distress
HEENT: Normocephalic, Atraumatic, EOMI, MMM
Respiratory: Clear to Auscultation bilaterally
Cardiac: Normal S1/S2, Regular Rate and Rhythm
GI: Soft, Nontender, Nondistended, Normal Bowel Sounds
Extremities: No Clubbing, Cyanosis, or Edema
Neuro: Nonfocal/Grossly Intact
Psych: Calm, Cooperative
Derm: No Visible lesions
Anticipated Discharge: Today
Subjective/Interval History
-
Date of Service: September 18, 2023
Patient reports feeling well. No chest pain, shortness of breath, palpitations. No fever, no chills, no vomiting.
Objective Data
-
Labs:
Laboratory Results
09/18/23
03:46
WBC 12.1 H
Hgb 13.5
Hct 41.2
Plt Count 222
Sodium 137
Potassium 4.4
Chloride 100
Carbon Dioxide 25
BUN 25 H
Creatinine 0.8
Glucose 96
Calcium 10.1
Vital Signs:
Vital Signs
Temp Pulse Resp BP Pulse Ox
97.6 F 62 18 102/70 96
09/18/23 07:00 09/18/23 07:03 09/18/23 07:00 09/18/23 07:03 09/18/23 07:00
I&O
09/17/23 09/18/23 09/19/23
06:59 06:59 06:59
Intake Total 1680 / 1680 1550 / 1550
Output Total 2800 / 2800 2100 / 2100
Balance -1120 / -1120 -550 / -550
--- NOTE | 2023-09-18 09:10 | W.PN.CARDCBS ---
Addendum entered and electronically signed by Ryan Elliott MD 09/18/23 10:31:
Attending addendum: Patient seen and examined. She is feeling well. She has been ambulatory in halls with no difficulty.
RECOMMENDATIONS:
- Clinically stable. Glad to hear she has been ambulatory without difficulties.
- Continue aspirin and Plavix
- LVEF is normal but lets switch metoprolol tartrate to long acting version metoprolol SUCCINATE at equivalent dose
- Okay for discharge with plans to follow with Dr. Singh
Original Note:
Today's Communication / Plan
-
ambulate
s/p LAD PCI x2 09/16
continue asa, plavix, statin, imdur, lisinopril, toprol
no jardiance given prior yeast infection and cost concerns
transition to po lasix 40mg BID
cardiac rehab
OP cardiac follow up arranged
ok for DC from cardiac standpoint
Impression / Plan
-
Primary Photo Graphics Librarian: Dr. Singh
Assessment:
Presentation with chest discomfort, UE/LE swelling, ARCOS, weight gain
Acute on chronic HFpEF
Elevated troponin
CAD with mod to severe diffuse coronary artery calcification, at least 50% prox RCA stenosis, guide induced prox RCA dissection s/p PCI by cath 01/29/22
DM2
Peripheral neuropathy
Diabetic retinopathy
HTN
HLD
Iron def anemia
h/o lung cancer s/p RML and RLL resection in 07/1999
former tobacco use
COPD/asthma
DENNIS on CPAP
depression/anxiety
GERD
Calcific pancreatitis
essential tremor
PVD RLE
Obesity
ECHO 01/2022: EF 65 to 70%, no regional wall motion abnormalities noted, no significant valvular disease
ECHO 09/11/23: EF 60 to 65%, grade 1 diastolic dysfunction, trace MR and TR, prominent anterior fat pad, no significant change compared to prior
Plan:
-She presented with chest discomfort as well as heart failure symptoms
-She has been diuresed and weight is down approximately 8 pounds from admission if accurate. will transition back to OP lasix dosing 40mg po BID for DC
-CHF education
-Troponin peaked at 0.053. Status post overlapping LAD stents 09/17/2023
-Continue aspirin, Plavix
-She reports overnight she has not had recurrence of discomfort. Will have patient ambulate in hallway
-Echocardiogram this admission with preserved EF
-Continue Lopressor 25 mg twice daily, Imdur 60 mg BID, lisinopril 5 mg HS
-she was previously on jardiance, however this was expensive and caused her to have a yeast infection. will not restart
-continue diabetic mgmt. hgbA1c this admission was 9.2%
-LDL 30. continue statin
-will arrange OP cardiac follow up
-cardiac rehab
-ok for DC to home today
-d/w hospitalist via TT
Progress Note - Photo Graphics Librarian
Subjective
Date of Service: September 18, 2023
Reports feeling well this morning. No discomfort overnight.
Objective
Labs:
09/18/23 03:46
09/18/23 03:46
Labs
Hgb 13.5 g/dL (12.0-16.0) 09/18/23 03:46
Hct 41.2 % (37.0-47.0) 09/18/23 03:46
Plt Count 222 10^3/uL (130-400) 09/18/23 03:46
APTT Cancelled 09/17/23 12:37
Sodium 137 mmol/L (135-145) 09/18/23 03:46
Potassium 4.4 mmol/L (3.5-5.1) 09/18/23 03:46
BUN 25 mg/dl (7-17) H 09/18/23 03:46
Creatinine 0.8 mg/dL (0.6-1.0) 09/18/23 03:46
Glucose 96 mg/dl (70-99) 09/18/23 03:46
Vital Signs and I&O:
Vital Signs
Temp Pulse Resp BP Pulse Ox
97.6 F 62 18 102/70 96
09/18/23 07:00 09/18/23 07:03 09/18/23 07:00 09/18/23 07:03 09/18/23 07:00
Vital Signs
Temp Pulse Resp BP Pulse Ox
97.6 F 62 18 102/70 96
09/18/23 07:00 09/18/23 07:03 09/18/23 07:00 09/18/23 07:03 09/18/23 07:00
Intake & Output
09/16/23 09/17/23 09/18/23 09/19/23
07:59 07:59 07:59 07:59
Intake Total 1020 / 1020 1680 / 1680 1550 / 1550
Output Total 3900 / 3900 2800 / 2800 2100 / 2100
Balance -2880 / -2880 -1120 / -1120 -550 / -550
Physical Exam
Physical Exam
GEN: No distress, awake, alert, oriented x3. sitting in chair
HEENT: supple, anicteric, mmm, eomi
LUNGS: CTA B/L, no wheezes/rales
CV: Reg, S1/S2, no murmur
ABD: soft, BS+, NT/ND
EXT: No cyanosis, clubbing, edema
NEURO: Gross non-focal
SKIN: Warm, pink, dry. No rash. R wrist site c/d/i
[2023-09-18 10:18] VITALS: BP 107/71
[2023-09-18 10:32] VITALS: BP 107/71; PULSE 69; O2SAT 96
--- NOTE | 2023-09-18 11:43 | W.DCSUMMARY ---
Discharge Summary
Discharge Data
Date of Admission: 09/11/23
Date of Discharge: 09/18/23
-
Pending Results: No
Hospital Course
Primary diagnosis:
Acute on chronic heart failure with a preserved ejection fraction
Coronary artery disease, status post stent placement x 2
Secondary diagnosis:
Type 2 diabetes
Peripheral neuropathy
Diabetic retinopathy
Benign essential hypertension
Hyperlipidemia
Iron deficiency
History of lung cancer status post right middle lobe and right lower lobe resection
Chronic obstructive pulmonary disease/asthma
Obstructive sleep apnea
Anxiety/depression
Gastroesophageal reflux disease
Peripheral vascular disease
Morbid obesity
Consults: Cardiology, CT surgery
Procedures:
09/17/2023CI with stenting of the LAD with 2 overlapping stents
Hospital course:
73-year-old female with a past medical history of chronic heart failure with preserved ejection fraction, coronary artery disease with previous RCA dissection status post PCI, diabetes, hypertension, obstructive sleep apnea, severe COPD status post
right middle and right lower lobe lobectomy who was admitted for chest pain and shortness of breath. She was found to have acute on chronic heart failure, as well as multivessel coronary artery disease.
Patient was seen in conjunction with cardiology. She was diuresed with IV Lasix. She had cardiac catheterization that showed multivessel coronary artery disease. She was seen in conjunction with CT surgery, who recommended PCI. She had placement
of 2 overlapping stents to the LAD on 09/17/2023. She did well postprocedure.
Patient diuresed well on IV Lasix. She is medically stable and cleared by cardiology for discharge on her previous Lasix dose of 40 mg twice a day. Cardiology changed her metoprolol tartrate to metoprolol succinate. She is to continue her
aspirin, atorvastatin, Plavix, lisinopril, and Imdur upon discharge. She needs to follow-up with cardiology in the office, as well as her primary care doctor in 1 week.
Disposition: Home self-care
Discharge planning: Required 36 minutes
Discharge Plan
-
Patient Disposition: Home with Home Care
Discharge Diagnosis/Procedures: Congestive heart failure, multivessel coronary artery disease status post angioplasty with stent to LAD x2
Diet: Low Cholesterol and Diabetic, Carb Controlled
Activity: As tolerated
Driving Restrictions: No driving for 24 hours
Other Services: Cardiac Rehab
Specialty Instructions: Weigh Daily- Call MD for wt gain/loss 3 lbs overnight/5 lbs in 1 week
Instructions: *DCA Heart Failure Instructions
Stand Alone Forms: DC Instructions- Cath/EP Lab
Referrals:
[facility] [Outside] - 10/23/23 10:00 am
Stephanie Flynn PA-C [Specified Professional Personl] - 10/12/23 9:40 am
Jeannine Marte MD [Family Provider] - in one week
Prescriptions:
New
metoprolol succinate 50 mg tablet extended release 24 hr
50 mg PO DAILY Qty: 30 0RF
Continued
escitalopram oxalate 20 MG tablet
20 mg PO DAILY
dexlansoprazole [Dexilant] 30 MG capsule,biphase delayed releas
60 mg PO DAILY
aspirin 81 MG tablet,chewable
81 mg PO DAILY
lisinopril 5 MG tablet
5 mg PO QPM
atorvastatin 40 mg Tablet
40 mg PO HS
nitroglycerin 0.4 mg Tablet, Sublingual
0.4 mg SUBLINGUAL [id number] PRN (Reason: chest pain)
pramipexole 0.25 mg Tablet
0.25 mg PO HS
clopidogrel 75 mg Tablet
75 mg PO DAILY Qty: 30 0RF
gabapentin 600 mg Tablet
600 mg PO TID
insulin glargine [Lantus Solostar U-100 Insulin] 100 unit/mL (3 mL) Insulin Pen
45 unit SC QPM
furosemide 40 MG tablet
40 mg PO BID
isosorbide mononitrate 30 MG tablet extended release 24 hr
60 mg PO DAILY
insulin aspart U-100 [Novolog U-100 Insulin aspart] 100 unit/mL solution
30 unit SC TID
Discontinued
metoprolol tartrate 25 mg tablet
12.5 mg PO BID
Discharge Orders:
Discharge Patient (As Directed); Ordered 09/18/23
Ordered By: Charles Baird
Care Plan Goals
Care Plan Goals:
Problem: Readiness for enhanced knowledge related to diagnosis and treatment plan
Goal: Understand your diagnosis and treatment plan needs, including medications if applicable.
Instructions: Know your diagnosis, underlying causes and treatment plan options, including medications if applicable. Consult with your health care team to learn about your diagnosis and treatment plan, including medications if applicable.
Discharge Date and Time
Discharge Date/Time: 09/18/23 14:56
Print Language: JAMAICAN
[2023-09-18 11:47] VITALS: BP 98/57
[2023-09-18 11:49] LABS: Glucose - Point of Care 155 mg/dl (70-99)
[2023-09-18] MEDS: NOVOLOG FLEXPEN-LOW RESISTANCE 1 UNITS SC (11:50)
--- NOTE | 2023-09-18 12:04 | CM ---
CM following for DC planning needs.
Met w/ patient at bedside. She reports that she feels well post PCI. She is anticipating DC to home today.
Offered VN. Pt. informs that she has weekly visits thru [facility] (?) and declines any additional services. She states that she can do PT on her own and does not need additional support.
Pt. has supportive sister, with whom she resides.
Plan is for home, no needs as pt. is declining.
--- NOTE | 2023-09-21 13:41 | W.HF.CON ---
Heart Failure
- LV Function
Left ventricular function study result: LV Ejection fraction >40%
Ejection Fraction Percentage: 60-65
- ARNI
Patient already on ARNI: No
Heart Failure ARNI Not Indicated: LV Ejection Fraction >/= 40%
- ACEI/ARB
Patient already on ACEI/ARB: Yes
- Beta Dontae
Patient already on Evidence Based Beta Dontae: Yes
- Mineralocorticord Receptor Antagonist
Patient already on MRA: No
Heart Failure MRA Not Indicated: LV Ejection Fraction > 40%
- SGLT-2 Inhibitor
Patient already on SGLT-2 Inhibitor: No
Heart Failure SGLT-2 Inhibitor Not Indicated: LV Ejection Fraction >40%
- NYHA CHF Classification
NYHA CHF Classification Level: Class III - Symptoms w/ min exertion, interferes w/ nml daily activity
- ACC/AHA Stage
ACC/AHA Stage: Stage C: Symptomatic Heart Failure
== END 2023-09-18 14:56 | disposition home or self-care (01) | DRG 321 ==
LOC: IVU 16:40
PROVIDERS: Internal Medicine; Internal Medicine Interventional Cardiology; Nurse Practitioner; Physician Assistant; Student in an Organized Health Care Education/Training Program; ADMITTING PHYSICIAN Hospitalist; ATTENDING PHYSICIAN Family Medicine; CONSULT PHYSICIAN Internal Medicine Cardiovascular Disease; CONSULT PHYSICIAN Thoracic Surgery (Cardiothoracic Vascular Surgery); EMERGENCY PHYSICIAN Emergency Medicine; FAMILY PHYSICIAN Family Medicine
PROC: B2111ZZ Fluoroscopy of Multiple Coronary Arteries using Low Osmolar Contrast (ICD-10-PCS; 2023-09-14)
PROC: 4A033BC Measurement of Arterial Pressure, Coronary, Percutaneous Approach (ICD-10-PCS; 2023-09-14)
PROC: 4A023N6 Measurement of Cardiac Sampling and Pressure, Right Heart, Percutaneous Approach (ICD-10-PCS; 2023-09-14)
PROC: 027035Z Dilation of Coronary Artery, One Artery with Two Drug-eluting Intraluminal Devices, Percutaneous Approach (ICD-10-PCS; 2023-09-17)
DX: I11.0 Hypertensive heart disease with heart failure (principal); I21.4 Non-ST elevation (NSTEMI) myocardial infarction; I50.33 Acute on chronic diastolic (congestive) heart failure; I25.10 Atherosclerotic heart disease of native coronary artery without angina pectoris; E11.319 Type 2 diabetes mellitus with unspecified diabetic retinopathy without macular edema; E11.42 Type 2 diabetes mellitus with diabetic polyneuropathy; E11.51 Type 2 diabetes mellitus with diabetic peripheral angiopathy without gangrene; E78.00 Pure hypercholesterolemia, unspecified; G47.33 Obstructive sleep apnea (adult) (pediatric); J44.9 Chronic obstructive pulmonary disease, unspecified; K21.9 Gastro-esophageal reflux disease without esophagitis; F32.A Depression, unspecified; F41.9 Anxiety disorder, unspecified; E66.01 Morbid (severe) obesity due to excess calories; G25.0 Essential tremor; M51.26 Other intervertebral disc displacement, lumbar region; G25.81 Restless legs syndrome; E04.9 Nontoxic goiter, unspecified; D50.9 Iron deficiency anemia, unspecified; Z87.891 Personal history of nicotine dependence; Z85.118 Personal history of other malignant neoplasm of bronchus and lung; Z88.1 Allergy status to other antibiotic agents; Z88.5 Allergy status to narcotic agent; Z88.8 Allergy status to other drugs, medicaments and biological substances; Z79.82 Long term (current) use of aspirin; Z79.51 Long term (current) use of inhaled steroids; Z68.36 Body mass index [BMI] 36.0-36.9, adult; Z82.49 Family history of ischemic heart disease and other diseases of the circulatory system; I25.2 Old myocardial infarction; Z80.8 Family history of malignant neoplasm of other organs or systems; Z80.1 Family history of malignant neoplasm of trachea, bronchus and lung; Z86.79 Personal history of other diseases of the circulatory system; Z86.73 Personal history of transient ischemic attack (TIA), and cerebral infarction without residual deficits; Z95.5 Presence of coronary angioplasty implant and graft
CPT/HCPCS: 71046; 71250; 80048; 80053; 80061; 82248; 82962; 83036; 83735; 83880; 84484; 85025; 85027; 85347; 85730; 93005; 93306; 93456; 93571; 94660; 94760; 97110; 97116; 97163; 99285; C1725; C1769; C1874; C1894; C9600; Q9967

== ENCOUNTER → 2024-05-20 09:28 | Outpatient (REF) | payer MEDICARE, SELFPAY | LOC: RAD 09:28 | PROVIDERS: ATTENDING PHYSICIAN Nurse Practitioner Adult Health | DX: R06.02 Shortness of breath (principal) | CPT/HCPCS: 71046 ==

== ENCOUNTER 2024-06-14 06:19 | Day surgery (SDC) | payer MEDICARE, SELFPAY ==
[2024-06-14 07:20] LABS: Glucose - Point of Care 72 mg/dl (70-99)
[2024-06-14 08:04] LABS: Glucose - Point of Care 77 mg/dl (70-99)
== END 2024-06-14 09:28 | disposition home or self-care (01) ==
LOC: GI 06:19
PROVIDERS: ATTENDING PHYSICIAN Internal Medicine Gastroenterology
DX: Z12.11 Encounter for screening for malignant neoplasm of colon (principal); K62.89 Other specified diseases of anus and rectum; D12.0 Benign neoplasm of cecum; D12.2 Benign neoplasm of ascending colon; D12.3 Benign neoplasm of transverse colon; K63.5 Polyp of colon; K62.1 Rectal polyp; Z86.0100 Personal history of colon polyps, unspecified
CPT/HCPCS: 45385; 88305; 82962

== ENCOUNTER → 2024-10-27 13:28 | Outpatient (REF) | payer MEDICARE, SELFPAY | LOC: RAD 13:28 | PROVIDERS: ATTENDING PHYSICIAN Surgery Vascular Surgery; FAMILY PHYSICIAN Family Medicine | DX: I73.9 Peripheral vascular disease, unspecified (principal) | CPT/HCPCS: 93922; 93925 ==

== ENCOUNTER 2024-11-01 18:44 | Inpatient (IN) | payer MEDICARE, SELFPAY ==
[2024-11-01] VITALS (8 sets, daily range): BP systolic 120–160; BP diastolic 55–88; PULSE 78; BMI 40.5; BMI 39.6
--- NOTE | 2024-11-01 16:16 | CON.CAR ---
Consultation
Consultation Request
Date/Time Consultation Requested: November 01 2024
Date/Time Consultation Performed: November 01 2024
Requesting Provider: Dr Ferrari
Performing Provider: Dr Coughlin
Reason for Consultation: Unstable angina
Medical History
-
Chief Complaint: chest pain
History of Present Illness:
Patient is a 74-year-old female with past medical history of chronic heart failure with preserved EF, CAD multiple stents including LAD PCI 2023 and history of RCA dissection treated with multiple stents. She was declined at that time per CT
surgery. Other history includes diabetes type 2, hypertension, hyperlipidemia, history of lung cancer, COPD/asthma. She was last admitted in September 2023 with heart failure and underwent stenting to the LAD.
She was last seen by Dr. Singh October 21 2024 at that time was having chest discomfort and was recommended cardiac PET/CT stress testing. Her Imdur was increased to 90 mg daily. She was continued with Lasix 40 mg twice a day with an extra 40 mg 3
times a week. Her recent creatinine and potassium were normal. Her atorvastatin was increased for better lipid control.
In the cardiac PET/CT stress test today she developed chest pain following receiving Lexiscan and developed some ST depressions laterally. Her chest pain improved after receiving sublingual nitroglycerin. She was transferred to the emergency room
for further evaluation and admission.
Past Medical History:
CAD with mod to severe diffuse coronary artery calcification
Status post PCI to LAD with 2 overlapping stents in 2023
At least 50% prox RCA stenosis, guide induced prox RCA dissection s/p PCI by cath 01/29/[address] surgery in 2023
Iron def anemia
chronic HFpEF
DM2
Peripheral neuropathy
Diabetic retinopathy
HTN
HLD
h/o lung cancer s/p RML and RLL resection in 07/1999
former tobacco use
COPD/asthma
DENNIS on CPAP
depression/anxiety
GERD
Calcific pancreatitis
essential tremor
PVD RLE
Obesity
Past Medical History
Past Medical History: Other (in HPI)
Social History
Tobacco: Former Smoker
Employment: Retired
Family History
Family History: CAD, Cancer, Hypertension and Other (COPD)
Allergies / Home Medications
Allergy/AdvReac Type Severity Reaction Status Date / Time
azithromycin Allergy See Verified 07/10/22 15:45
comments
codeine Allergy vomiting Verified 07/10/22 15:45
omeprazole Allergy fever and Verified 07/10/22 15:45
joint aches
propranolol Allergy Shortness Verified 07/10/22 15:45
of
Breath/tight
chest, SOB
�Medication �Instructions �Recorded �Confirmed �Type
escitalopram oxalate 20 mg tablet 20 mg PO DAILY Mental health 11/30/15 09/11/23 History
dexlansoprazole 30 mg 60 mg PO DAILY Gastrointestinal 04/04/17 09/11/23 History
capsule,biphase delayed release issue
(Dexilant)
aspirin 81 mg chewable tablet 81 mg PO DAILY Blood clot 08/01/21 09/11/23 History
prevention/tx
lisinopril 5 mg tablet 5 mg PO QPM Blood pressure 08/01/21 09/11/23 History
atorvastatin 40 mg tablet 40 mg PO HS High cholesterol 01/28/22 09/11/23 History
nitroglycerin 0.4 mg sublingual 0.4 mg sublingual [id number] PRN 01/28/22 09/11/23 History
tablet chest pain
pramipexole 0.25 mg tablet 0.25 mg PO HS Neurological 01/28/22 09/11/23 History
Condition
clopidogrel 75 mg tablet 75 mg PO DAILY Blood clot 02/01/22 09/11/23 Rx
prevention/tx #30 tabs
furosemide 40 mg tablet 40 mg PO BID Fluid 09/11/23 09/11/23 History
Retention/Swelling
gabapentin 600 mg tablet 600 mg PO TID Pain 09/11/23 09/11/23 History
insulin aspart U-100 100 unit/mL 30 unit SC TID Diabetes 09/11/23 09/11/23 History
subcutaneous solution (Novolog
U-100 Insulin aspart)
insulin glargine 100 unit/mL (3 45 unit SC QPM Diabetes 09/11/23 09/11/23 History
mL) subcutaneous pen (Lantus
Solostar U-100 Insulin)
isosorbide mononitrate 30 mg 60 mg PO DAILY Heart 09/11/23 09/11/23 History
tablet,extended release 24 hr disease/condition
metoprolol succinate 50 mg 50 mg PO DAILY #30 tabs 09/18/23 Rx
tablet,extended release 24 hr
Review of Systems
-
History Source: Patient
All other systems: Negative unless noted
Cardiac: Chest Pain
Physical Exam
Vital Signs
Temp Pulse Resp BP Pulse Ox
98 F 84 16 152/74 97
11/01/24 16:08 11/01/24 16:08 11/01/24 16:08 11/01/24 16:08 11/01/24 16:08
Physical examination:
General: No acute distress, AAOX3
Neck: Negative JVD
Heart: Regular, Negative S3 positive S1/S2, Negative S4, No murmur
Lungs: CTA b/l, negative wheezes/rales/rhonchi
Abd: Positive BS, NT/ND, neg rebound/rigidity/guarding
Ext: Negative cyanosis/clubbing/edema
Neuro: nonfocal
Impression / Plan
-
.
Primary Shipping And Receiving Associate: Dr. Singh
Impression:
Unstable angina with EKG during Cardiac PET/CT stress test November 01 2024
CAD with mod to severe diffuse coronary artery calcification
Status post PCI to LAD with 2 overlapping stents in 2023
At least 50% prox RCA stenosis, guide induced prox RCA dissection s/p PCI by cath 01/29/[address] surgery in 2023
Iron def anemia
Chronic HFpEF
DM2
Peripheral neuropathy
Diabetic retinopathy
HTN
HLD
h/o lung cancer s/p RML and RLL resection in 07/1999
former tobacco use
COPD/asthma
DENNIS on CPAP
depression/anxiety
GERD
Calcific pancreatitis
essential tremor
PVD RLE
Obesity
ECHO 01/2022: EF 65 to 70%, no regional wall motion abnormalities noted, no significant valvular disease
ECHO 09/11/23: EF 60 to 65%, grade 1 diastolic dysfunction, trace MR and TR, prominent anterior fat pad, no significant change compared to prior
Plan:
She will require admission given her recurrent chest pain and findings thus far on her stress test including EKG changes
Images are pending, being processed
She has known significant CAD with prior stenting to the LAD and dissection and stenting to the RCA. She was previously turndown for CABG.
She will be reconsidered for potential for cardiac catheterization pending her troponins and clinical course.
Continue diuretics and watch volume status closely including I's and O's Daily weights and creatinine.
HF education.
Continue aspirin and Plavix dual antiplatelet therapy.
Continue isosorbide, lisinopril metoprolol.
She did not tolerate Jardiance due to its cost and yeast infection it was stopped in the past.
Check echocardiogram to evaluate left ventricular systolic function. Last echo 2023 with preserved EF and no significant valvular disease.
Continue statin for hyperlipidemia. Her statin was recently increased. Her last LDL was suboptimal.
Diabetes management as per primary service.
Discussed with emergency room.
Discussed with her sister who came with her today
Data Reviewed
-
EKG: Tracing Personally Visualized and interpreted
Medical Tests (Nuc Med, Echo etc): Report Reviewed by me
Old Records: Reviewed
[2024-11-01 16:33] LABS: % Basophils 0.7 % (0-2); % Eosinophils 1.6 % (0-6); % Immature Granulocytes 0.3 % (0-0.5); % Monocytes 5.7 % (1.7-9.3); % Neutrophils 62.7 % (42.2-75.2); Absolute Basophils 0.1 10^3/uL (0-0.2); Absolute Eosinophils 0.2 10^3/uL (0-0.7); Absolute Lymphocytes 2.9 10^3/uL (1.2-3.4); Absolute Monocytes 0.6 10^3/uL (0.1-0.6); Absolute Neutrophils 6.2 10^3/uL (1.4-6.5); Hematocrit 41.2 % (37.0-47.0); Hemoglobin 14.1 g/dL (12.0-16.0); Mean Corp Hgb Conc. 34.2 g/dL (33.0-37.0); Mean Corpuscular Hgb 30.6 pg (27.0-31.0); Mean Corpuscular Volume 89.4 fL (81.0-99.0); Mean Platelet Volume 10.1 fL (7.4-10.4); Nucleated Red Blood Cells % 0 %; Platelet Count 182 10^3/uL (130-400); Red Blood Cell Count 4.61 10^6/uL (4.20-5.40); Red Cell Dist. Width 14.5 % (11.5-14.5); White Blood Cell Count 9.9 10^3/uL (4.8-10.8)
[2024-11-01 16:46] LABS: ALT (SGPT) 21 U/L (0-35); AST (SGOT) 36 U/L (14-36); Albumin 4.7 g/dl (3.5-5.0); Alkaline Phosphatase 112 U/L (38-126); Blood Urea Nitrogen 12 mg/dl (7-17); Calcium 9.5 mg/dl (8.4-10.2); Carbon Dioxide 24 mmol/L (22-30); Chloride 103 mmol/L (98-107); Glucose 228 mg/dl (70-99); Potassium 4.9 mmol/L (3.5-5.1); Sodium 137 mmol/L (135-145); Total Bilirubin 1.2 mg/dl (0.2-1.3); Total Protein 7.7 g/dl (6.3-8.2); eGFR > 60.00
[2024-11-01 16:52] LABS: Troponin I < 0.012 ng/ml
--- NOTE | 2024-11-01 17:16 | ED.GENMED ---
History of Present Illness
General
Chief Complaint: Chest Pain
Source: patient
Exam Limitations: none
Time Seen by Provider: 11/01/24 16:43
Nursing documentation reviewed up to this point in time: agreed with
History of Present Illness
History of Present Illness:
74-year-old female with past medical history of CAD, stents CHF insulin-dependent diabetes diabetic neuropathy presents to the ER for evaluation. Patient was having a PET stress test prior to arrival and developed chest pain during the procedure.
She was evaluated by cardiology Dr. Coughlin at the time who recommend that she be admitted overnight for observation.
She reports that nitroglycerin however helped to decrease the chest pain. In addition she was given IV she had no associated chest pain with symptoms.
Past History
Past History
ED Past Medical History: Asthma, Cancer (Lung), CVA, GERD, HTN, Hypercholesterolemia, IDDM and Other (DENNIS)
ED Past Surgical History: Cholecystectomy and Other (Lung resection)
Social History
Tobacco: Former smoker
Alcohol: None
Drug: None
Personal: Partner
Living: with family
Family History
Family History: Other (Noncontributory)
Phy Exam
General Physical Exam
General Presentation: no apparent distress
General age: appears stated age
General Skin: warm and dry
General Habitus: normal
General Mental: alert
General Hydration: appears well hydrated
Cardiovascular Exam
Cardiovascular Exam: regular rate/rhythm, no murmur and normal peripheral pulses
Pulmonary Exam
Pulmonary Exam: lungs clear and no respiratory distress
Neurological Exam
Neurological Exam: alert and oriented x3
Musculoskeletal Exam
Musculoskeletal Exam: full ROM
Skin Exam
Skin Exam: normal color and warm/dry
Psychiatric Exam
Psychiatric Exam: normal mood/affect
Scores
Heart Score for Chest Pain Patients
STEMI patient?: Not applicable
Course
Orders/Labs/Results
Orders:
Orders
11/01/24 16:00
Electrocardiogram (*1) Urgent
Reason for Study: Chest Pain
EKG- Treatment ONCE
11/01/24 16:15
Complete Blood Count/With Diff Urgent
Comprehensive Metabolic Panel Urgent
Troponin I Urgent
Abnormal Lab Results
11/01/24
16:15
Creatinine 0.5 L mg/dL
(0.6-1.0)
Glucose 228 H mg/dl
(70-99)
11/01/24 16:15
11/01/24 16:15
Vital Signs
Initial and Last Documented VS:
Initial Vital Signs
Temp Pulse Resp BP Pulse Ox
98 F 84 16 152/74 97
11/01/24 16:08 11/01/24 16:08 11/01/24 16:08 11/01/24 16:08 11/01/24 16:08
Last Documented Vital Signs
Temp Pulse Resp BP Pulse Ox
98 F 81 17 126/63 97
11/01/24 16:08 11/01/24 16:53 11/01/24 16:53 11/01/24 16:53 11/01/24 17:18
MDM/Problems Addressed
Differential Diagnosis Includes:
not limited to: ACS
MDM/Problems Addressed:
Patient is a 74-year-old female was having a PET stress test and developed chest pain. She was given aminophylline as well as nitroglycerin. Nitroglycerin did resolve her chest pain. She is currently asymptomatic and in no acute distress. VSS
Her initial troponin is negative no acute findings on EKG. As discussed with cardiology they would like to admit her to trend her troponin continue her diuretics and keep her n.p.o. after midnight just in case of needed procedure.
Chronic conditions affecting care:
CAD/stents IDDM
*Pulse Oximetry
SaO2: 97
Oxygen Mode of Delivery: Room air
Patient hypoxic: yes
*EKG
Interpreted by ED Provider?: Yes
Interpretation: normal
Heart Rate: 85
Rate: normal
Rhythm: sinus
Ischemia: no ischemia
*Critical Care Note
Total Time (30-74mins, 75-104mins- exclusive of procedures): Not Applicable
Patient Management
Discussion with other providers: Early Childhood Education Instructor (cardiology DR Coughlin )
ED Attending Note
-
Portions of this chart may have been created with voice recognition software.� Occasional wrong word or��sound alike� substitutions may have occurred due to the inherent limitations of voice recognition software.
Discharge Plan
Departure
Patient Disposition: Admit
Date of Disposition: 11/01/24
Time of Disposition: 17:32
Admit to: Telemetry
Admit to doctor: hospitalist
Presentation/result/management discussed w/ accepting MD/DO: Hospitalist
Patient with high blood pressure during this ER visit?: Yes
Condition: Fair
Covid-19: Not Applicable
Discharge Problem:
Chest pain
Prescriptions:
No Action
escitalopram oxalate 20 MG tablet
20 mg PO DAILY
dexlansoprazole [Dexilant] 30 MG capsule,biphase delayed releas
60 mg PO DAILY
aspirin 81 MG tablet,chewable
81 mg PO DAILY
lisinopril 5 MG tablet
5 mg PO QPM
atorvastatin 40 mg Tablet
40 mg PO HS
nitroglycerin 0.4 mg Tablet, Sublingual
0.4 mg SUBLINGUAL [id number] PRN (Reason: chest pain)
pramipexole 0.25 mg Tablet
0.25 mg PO HS
clopidogrel 75 mg Tablet
75 mg PO DAILY Qty: 30 0RF
gabapentin 600 mg Tablet
600 mg PO TID
insulin glargine [Lantus Solostar U-100 Insulin] 100 unit/mL (3 mL) Insulin Pen
45 unit SC QPM
furosemide 40 MG tablet
40 mg PO BID
isosorbide mononitrate 30 MG tablet extended release 24 hr
60 mg PO DAILY
insulin aspart U-100 [Novolog U-100 Insulin aspart] 100 unit/mL solution
30 unit SC TID
metoprolol succinate 50 mg tablet extended release 24 hr
50 mg PO DAILY Qty: 30 0RF
Interventions
Interventions:
*Risk Screen - Suicide Last Done: 11/01/24 16:09
*General Assessment Last Done: 11/01/24 16:56
*Neglect/Abuse Screening Last Done: 11/01/24 16:09
*ED- Fall Risk Assessment Last Done: 11/01/24 16:56
*ED COVID-19 Vaccine History Last Done: 11/01/24 16:56
ED- Cardiac Assessment Last Done: 11/01/24 16:56
Discharge Date and Time
Print Language: NAMIBIAN
--- NOTE | 2024-11-01 18:04 | HPS.HSE ---
Family Physician
-
Family Physician: Jeannine Marte
Chief Complaint
-
Chest pain
History of Present Illness
74-year-old female developed chest pain today during her stress test and was referred to the emergency room for admission. Chest pain was relieved with 1 nitroglycerin sublingual.
She does have extensive coronary disease history with prior stenting.
She was declined for CT surgery in the past.
Medical History
Past Medical History
Past Medical History: Reports Other
Additional Past Medical History:
CAD
DM2
Essential hypertension
Chronic heart failure preserved EF
Essential hypertension
Hyperlipidemia
COPD
DENNIS
History of lung cancer
Calcific pancreatitis
Depression with anxiety
GERD
Colon polyps
Peripheral neuropathy
Migraine headaches
RLS
Osteopenia
Essential tremor
Past Surgical History: Reports Other
Additional Past Surgical History:
Right lung lobectomy mid and lower lobes, the year 1999
Cholecystectomy
Social History
Tobacco: Former Smoker
Alcohol: None
Drug: None
Personal: Single
Living: With Family
Family History
Family History: Not pertinent
Allergies / Home Medications
Allergies reflects when Allergies were last updated in [employer]
Home Medications with original date entered in [employer]
Allergy/Medication List:
Allergies
Allergy/AdvReac Type Severity Reaction Status Date / Time
azithromycin Allergy See Verified 07/10/22 15:45
comments
codeine Allergy vomiting Verified 07/10/22 15:45
omeprazole Allergy fever and Verified 07/10/22 15:45
joint aches
propranolol Allergy Shortness Verified 07/10/22 15:45
of
Breath/tight
chest, SOB
Home Medications
escitalopram oxalate 20 mg tablet 20 mg PO DAILY Mental health 11/30/15
dexlansoprazole 30 mg capsule,biphase delayed release (Dexilant) 60 mg PO DAILY Gastrointestinal issue 04/04/17
aspirin 81 mg chewable tablet 81 mg PO DAILY Blood clot prevention/tx 08/01/21
lisinopril 5 mg tablet 5 mg PO QPM Blood pressure 08/01/21
atorvastatin 40 mg tablet 40 mg PO HS High cholesterol 01/28/22
nitroglycerin 0.4 mg sublingual tablet 0.4 mg sublingual [id number] PRN chest pain 01/28/22
pramipexole 0.25 mg tablet 0.25 mg PO HS Neurological Condition 01/28/22
clopidogrel 75 mg tablet 75 mg PO DAILY Blood clot prevention/tx #30 tabs 02/01/22
furosemide 40 mg tablet 40 mg PO BID Fluid Retention/Swelling 09/11/23
gabapentin 600 mg tablet 600 mg PO TID Pain 09/11/23
insulin aspart U-100 100 unit/mL subcutaneous solution (Novolog U-100 Insulin aspart) 30 unit SC TID Diabetes 09/11/23
insulin glargine 100 unit/mL (3 mL) subcutaneous pen (Lantus Solostar U-100 Insulin) 45 unit SC QPM Diabetes 09/11/23
isosorbide mononitrate 30 mg tablet,extended release 24 hr 60 mg PO DAILY Heart disease/condition 09/11/23
metoprolol succinate 50 mg tablet,extended release 24 hr 50 mg PO DAILY #30 tabs 09/18/23
Review of Systems
-
History Source: Patient
A 12 point ROS was completed and negative except as noted: Yes
Physical Exam
Vital Signs
Vital Signs
Temp Pulse Resp BP Pulse Ox
98 F 79 11 129/69 97
11/01/24 16:08 11/01/24 17:15 11/01/24 17:15 11/01/24 17:00 11/01/24 17:18
Physical Exam
General: Well Developed, Well Nourished, No Apparent Distress and Comfortable
HEENT: NormoCephalic, Anicteric and Moist mucous membranes
Respiratory: Clear
Cardiac: S1/S2 and Regular Rhythm
Breast: Deferred by me
GI: Soft, Non Tender and Non Distended
Genito-urinary: Deferred by me
Musculoskeletal: No Clubbing, No Cyanosis and No Edema
Skin: Warm and Dry
Neuro: AO x 3 and Nonfocal/grossly intact
Hematologic/Lymphatic: No Lymphadenopathy
Psych: Calm
Laboratory Results
-
11/01/24 16:15
11/01/24 16:15
Laboratory Results
Total Bilirubin 1.2 mg/dl (0.2-1.3) 11/01/24 16:15
AST 36 U/L (14-36) 11/01/24 16:15
ALT 21 U/L (0-35) 11/01/24 16:15
Alkaline Phosphatase 112 U/L (38-126) 11/01/24 16:15
Troponin I < 0.012 ng/ml 11/01/24 16:15
Impression/Plan
-
Unstable angina -symptoms resolved. Admit to IVU. Consult cardiology. Trend troponins. Resume antianginal medications.
Stress test today shows normal myocardial perfusion, coronary flow reserve is reduced. Moderate risk study due to pharmacologic agent used. Systolic function was normal. She did receive sublingual nitroglycerin that relieved her chest pain.
There was evidence of slight ST depression in V3 through V6 which normalized following recovery.
Cardiology requesting n.p.o. after midnight in case she needs a procedure tomorrow.
Continue dual antiplatelet therapy.
Echocardiogram tomorrow.
Chronic heart failure preserved EF -continue home dose of furosemide.
Essential hypertension -stable. Resume home meds.
DM2 with hyperglycemia -glucose 228 this afternoon. She is on Lantus and NovoLog insulin at home. Check hemoglobin A1c. Resume Lantus, add low resistance NovoLog scale, resume mealtime NovoLog tomorrow when diet resumed. Did not tolerate
Jardiance in the past due to yeast infection and cost.
Hyperlipidemia -continue atorvastatin.
COPD without exacerbation
DENNIS -continue nocturnal CPAP.
Chronic peripheral neuropathy
History of lung cancer
Morbid obesity due to excess calories -weight loss encouraged.
DNR -confirmed with patient.
[2024-11-01] MEDS: LIPITOR 80 MG PO (21:40)
[2024-11-01] MEDS: ZESTRIL 2.5 MG PO (21:40)
[2024-11-01] MEDS: NEURONTIN 600 MG PO (21:41)
[2024-11-01] MEDS: FLUSH (NSS) 1 FLUSH IV (21:41)
[2024-11-01] MEDS: LANTUS 0.3 UNITS SC (21:49)
[2024-11-01] MEDS: MIRAPEX 0.25 MG PO (21:49)
[2024-11-01 21:50] LABS: Glucose - Point of Care 282 mg/dl (70-99)
--- NOTE | 2024-11-01 23:30 | PTCARENOTE ---
Received pt into room 2242 from ED @ approx 1930 via stretcher. pt ambulated into room with RN assistance. Tele monitor placed on pt, SR, HR in the 80's. pt denies any chest pain or SOB. pt oriented to room. Blood glucose taken with result of 282,
30 units of Lantus administered per order. Provided snack for HS. pt educated on NPO status after midnight. Dexicom on right arm. New IV placed and Troponin drawn. Call berry within reach.
[2024-11-01 23:40] LABS: Troponin I < 0.012 ng/ml
[2024-11-02] VITALS (14 sets, daily range): BP systolic 92–133; BP diastolic 45–76; PULSE 70; BMI 39.3
[2024-11-02 05:33] LABS: Troponin I < 0.012 ng/ml
[2024-11-02 06:13] LABS: Glucose - Point of Care 219 mg/dl (70-99)
[2024-11-02] MEDS: NOVOLOG FLEXPEN-LOW RESISTANCE 2 UNITS SC ×3 (06:30→18:20)
--- NOTE | 2024-11-02 08:20 | W.PN.HOSP.TC ---
Today's Communication/Plan
-
Echocardiogram
Await cardiology input
Assessment / Plan
Assessment / Plan
Gen-AAOx3, NAD
HEENT-NC, AT, anicteric, clear oral mm
Neck-supple
CV-reg, no M, +S1/S2
Lungs-clear B/L
Abd-soft, NT, ND
Ext-no edema
Musculoskeletal-no cyanosis, clubbing
Skin-warm and dry
Neuro-grossly non-focal
Psych-calm, cooperative
Unstable angina -symptoms resolved. Troponins negative. Await echocardiogram. Resume diet if okay with cardiology.
Stress test 11/01 showed normal myocardial perfusion, coronary flow reserve is reduced. Moderate risk study due to pharmacologic agent used. Systolic function was normal. She did receive sublingual nitroglycerin that relieved her chest pain.
There was evidence of slight ST depression in V3 through V6 which normalized following recovery.
Chronic heart failure preserved EF -continue home dose of furosemide.
Essential hypertension -stable. Continue home meds.
DM2 with hyperglycemia -glucose 219 this morning received 30 units of Lantus last night. Will increase Lantus to 40 units at bedtime, this is her home dose. She is on Lantus and NovoLog insulin at home. Check hemoglobin A1c. Did not tolerate
Jardiance in the past due to yeast infection and cost.
Hyperlipidemia -continue atorvastatin.
COPD without exacerbation
DENNIS -continue nocturnal CPAP.
Chronic peripheral neuropathy
History of lung cancer
Morbid obesity due to excess calories -weight loss encouraged.
DNR -confirmed with patient.
Anticipated Discharge: Within 24 hours
Subjective/Interval History
-
Date of Service: November 02, 2024
Patient seen and examined. Chest pain resolved. Had trouble sleeping last night, issues with her CPAP mask. No other complaints.
Objective Data
-
Vital Signs:
Vital Signs
Temp Pulse Resp BP Pulse Ox
98.6 F 74 16 110/68 97
11/02/24 07:28 11/02/24 07:18 11/02/24 07:28 11/02/24 07:18 11/02/24 07:28
I&O
11/01/24 11/02/24 11/03/24
06:59 06:59 06:59
Intake Total 360 / 360
Output Total 650 / 650
Balance -290 / -290
Review of Systems
-
History Source: Patient
All other systems: Reviewed and negative
[2024-11-02 08:30] LABS: Glycohemoglobin (HgbA1c) 8.4 % (4.0-5.6)
--- NOTE | 2024-11-02 09:19 | W.PN.CARDCBS ---
Today's Communication / Plan
-
Plan will be for cardiac cath today.
Continue aspirin, Plavix, atorvastatin.
Continue Imdur 90mg daily, Toprol 50mg daily. Continue lisinopril 2.5 mg daily.
Other options include Ranexa/amlodipine
Volume status overall appears stable. Continue Lasix 40 mg p.o. twice daily with 40 mg daily Thursday and Thursday.
Impression / Plan
-
.
Primary Energy Economist: Dr. Singh
Impression:
Unstable angina with EKG during Cardiac PET/CT stress test November 01 2024
CAD with mod to severe diffuse coronary artery calcification
Status post PCI to LAD with 2 overlapping stents in 2023
At least 50% prox RCA stenosis, guide induced prox RCA dissection s/p PCI by cath 01/29/[address] surgery in 2023
Iron def anemia
Chronic HFpEF
DM2
Peripheral neuropathy
Diabetic retinopathy
HTN
HLD
h/o lung cancer s/p RML and RLL resection in 07/1999
former tobacco use
COPD/asthma
DENNIS on CPAP
depression/anxiety
GERD
Calcific pancreatitis
essential tremor
PVD RLE
Obesity
ECHO 01/2022: EF 65 to 70%, no regional wall motion abnormalities noted, no significant valvular disease
ECHO 09/11/23: EF 60 to 65%, grade 1 diastolic dysfunction, trace MR and TR, prominent anterior fat pad, no significant change compared to prior
Plan:
Current troponins are negative. She had Lexiscan given yesterday and had severe chest tightness with EKG changes. The protocol was not completed as she was reversed due to severe symptoms. I discussed with her treatment options and she has been
having worsening chest tightness with minimal exertion. She has failed medical therapy. We discussed risks and benefits of repeat coronary angiography and she is agreeable to proceed today to evaluate her LAD and RCA stents.
LVEF is preserved by stress testing.
Continue aspirin and Plavix dual antiplatelet therapy.
Continue isosorbide, lisinopril metoprolol.
She did not tolerate Jardiance due to its cost and yeast infection it was stopped in the past.
Check echocardiogram to evaluate left ventricular systolic function. Last echo 2023 with preserved EF and no significant valvular disease.
Continue atorvastatin 80 mg daily. Will add on lipid profile. Goal LDL should be in the 50s.
Diabetes management as per primary service.
Progress Note - Energy Economist
Subjective
Date of Service: November 02, 2024
Chest pains have resolved. She has been having severe chest tightness which has been progressive in symptoms over the past week or 2. She also has significant dyspnea on exertion.
Objective
Labs:
11/01/24 16:15
11/01/24 16:15
Labs
Hgb 14.1 g/dL (12.0-16.0) 11/01/24 16:15
Hct 41.2 % (37.0-47.0) 11/01/24 16:15
Plt Count 182 10^3/uL (130-400) 11/01/24 16:15
Sodium 137 mmol/L (135-145) 11/01/24 16:15
Potassium 4.9 mmol/L (3.5-5.1) 11/01/24 16:15
BUN 12 mg/dl (7-17) 11/01/24 16:15
Creatinine 0.5 mg/dL (0.6-1.0) L 11/01/24 16:15
Glucose 228 mg/dl (70-99) H 11/01/24 16:15
Troponins
11/01/24 11/01/24 11/02/24
16:15 23:05 04:41
Troponin I < 0.012 < 0.012 < 0.012
11/02/24
10:30
Troponin I Cancelled
Vital Signs and I&O:
Vital Signs
Temp Pulse Resp BP Pulse Ox
98.6 F 74 16 110/68 97
11/02/24 07:28 11/02/24 07:18 11/02/24 07:28 11/02/24 07:18 11/02/24 07:28
Vital Signs
Temp Pulse Resp BP Pulse Ox
98.6 F 74 16 110/68 97
11/02/24 07:28 11/02/24 07:18 11/02/24 07:28 11/02/24 07:18 11/02/24 07:28
Intake & Output
10/31/24 11/01/24 11/02/24 11/03/24
06:59 06:59 06:59 06:59
Intake Total 360 / 360
Output Total 650 / 650
Balance -290 / -290
Physical Exam
Physical Exam
GEN: No distress, awake, Ox3
HEENT: supple, anicteric, mmm
LUNGS: CTA, no wheezes/rales
CV: Reg, S1/S2, 1/6 syst LSB, no gallop
ABD: soft, BS+, NT/ND
EXT: No edema
NEURO: Gross non-focal
SKIN: No rash
[2024-11-02] MEDS: IMDUR (EXTENDED RELEASE) 90 MG PO (09:48)
[2024-11-02] MEDS: TOPROL XL 50 MG PO (09:49)
[2024-11-02] MEDS: NEURONTIN 600 MG PO ×3 (09:50→22:46)
[2024-11-02] MEDS: PLAVIX 75 MG PO (09:50)
[2024-11-02] MEDS: LEXAPRO 20 MG PO (09:50)
[2024-11-02] MEDS: LOW STRENGTH ASPIRIN 81 MG PO (09:50)
[2024-11-02] MEDS: PROTONIX 40 MG PO (09:50)
[2024-11-02] MEDS: LASIX 40 MG PO ×2 (09:51)
[2024-11-02 11:36] LABS: Glucose - Point of Care 218 mg/dl (70-99)
--- NOTE | 2024-11-02 14:18 | CM ---
CM following for DC planning needs.
Met w/ patient at bedside to complete initial assessment. Pt. reports that she resides w/ sister and SAVAGE in a ranch style home without any steps to enter. Functionally, patient is indep. w/ ADLs, mobility with use of a RW occasionally. Pt. reports
that she has a history of using [facility] and has their number to call as needed.
Pt. has RX plan and uses [facility] on [address] for prescription needs.
Anticipated DC plan is for home, no needs.
CM to follow.
[2024-11-02] MEDS: NSS 1000 IV (15:57)
--- NOTE | 2024-11-02 16:21 | ITS.CL.CATH ---
Floor Installation Mechanic - Catheterization
Cardiac Catheterization
Procedure Report:
LEFT HEART CATHETERIZATION
Date of Procedure: November 02, 2024
Referring: Bobo Singh
PROCEDURES:
1. Left heart catheterization, coronary angiogram.
2. Moderate sedation.
INDICATION: Concern for unstable angina
ACCESS: Multiple attempts were made to obtain right radial artery access however we could not successfully advance the wire despite adequate blood return.
HEMODYNAMICS : (mmHg)
AO (s/d) : 117/63
LVEDP : 20
No significant gradient across the aortic valve to suggest aortic stenosis.
CORONARY FINDINGS
Dominance: Right
Left Main Trunk (LMT): Large caliber vessel that gives rise to the LAD and LCx branches and is free of angiographic disease.
Left Anterior Descending Artery (LAD): Large caliber vessel that gives off 2 major diagonal branches as it courses along the anterior inter-ventricular groove before wrapping around the cardiac apex. Previously placed LAD stents are widely patent
with no other obstructive lesions and GALI-3 flow into the distal vessel.
Left Circumflex Artery (LCx): Small to medium caliber nondominant vessel that gives off 2 very small caliber major obtuse marginal (OM) branches as it courses along the atrio-ventricular (AV) groove. Mid left circumflex has 60 to 70% stenosis just
proximal to OM 2 takeoff. The circumflex marginal system has diffuse moderate atherosclerotic plaque. GALI-3 flow was noted into the distal vessels.
Right Coronary Artery (RCA): Large caliber dominant vessel that gives rise to the posterior descending artery (RPDA) and postero-lateral ventricular (RPLV) branches distally. Previously placed RCA stents are widely patent. There is otherwise mild
to moderate diffuse atherosclerotic plaque with no obvious obstructive lesion. GALI-3 flow into the distal vessels.
SEDATION: 57minutes of procedural sedation was utilized. IV Midazolam and IV Fentanyl were administered. An independent medical device engineer was present to assist with and help manage the patient's level of consciousness and physiologic status.
RADIATION SUMMARY: Fluoro Time (min): 8.8, Dose (mGy): 720.71, DAP (Gy.cm2) : 50.65
Closure Device: There were no immediate intra-procedural complications. The sheath was pulled in the laborer ammunition assembly and a vascular-band applied to the right wrist for radial artery hemostasis using the patent hemostasis technique.
CONCLUSIONS
1. Previously placed stent are widely patent.
2. Small vessel disease in the circumflex/OM system and RPL/RPDA.
3. Elevated LVEDP at 20 mmHg.
RECOMMENDATIONS
1. Wean radial band per protocol. Monitor right hand perfusion and for bleeding from the radial site following removal of the vascular-band following trans-radial access.
2. Continue aggressive medical therapy and risk factor modification for secondary CAD prevention. Optimization of antianginal therapy given small vessel coronary artery disease.
3. Hydrate with normal saline to mitigate the risk of contrast-induced acute kidney injury.
4. Outpatient referral for cardiac rehab.
Copy to: Bobo Singh
Meron Valdez MD, FACC, [facility]
[2024-11-02 16:57] LABS: Glucose - Point of Care 207 mg/dl (70-99)
[2024-11-02] MEDS: LASIX PO (18:20)
[2024-11-02] MEDS: NORVASC 2.5 MG PO (18:21)
--- NOTE | 2024-11-02 19:04 | PTCARENOTE ---
Pt denied any chest pressure today. Pt had a cardiac cath attempted via right radial site, done via right femoral artery. Dressings dry and intact, no sign of bleeding or hematoma, doppler pedal pulses. Pt OOB after bedrest ended, voiding in large
amounts without difficulty. Telemetry shows sinus rhythm, SBP's @100-110. Plan medical management.
[2024-11-02] MEDS: ZESTRIL 2.5 MG PO (20:26)
--- NOTE | 2024-11-02 22:45 | PTCARENOTE ---
Assumed care of patient at change of shift. Patient ambulating self in room and denies any dizziness or SOB. Tegaderm removed from right radial site d/t pt c/o 'itchiness'. No rash noted at this time. Small ecchymosis near puncture site. Radial
pulse palpable. Right groin dressing C/D/I, no hematoma present. Remains CP free. Patient aware of POC, call berry within reach.
[2024-11-02 22:46] LABS: Glucose - Point of Care 256 mg/dl (70-99)
[2024-11-02] MEDS: MIRAPEX 0.25 MG PO (22:46)
[2024-11-02] MEDS: LANTUS 0.4 UNITS SC (22:46)
[2024-11-02] MEDS: LIPITOR 80 MG PO (22:46)
[2024-11-03 03:19] VITALS: PULSE 76
[2024-11-03 03:27] VITALS: BP 110/63
[2024-11-03 04:01] LABS: Hematocrit 36.9 % (37.0-47.0); Hemoglobin 12.6 g/dL (12.0-16.0); Mean Corp Hgb Conc. 34.1 g/dL (33.0-37.0); Mean Corpuscular Hgb 31.3 pg (27.0-31.0); Mean Corpuscular Volume 91.6 fL (81.0-99.0); Mean Platelet Volume 10.2 fL (7.4-10.4); Platelet Count 200 10^3/uL (130-400); Red Blood Cell Count 4.03 10^6/uL (4.20-5.40); Red Cell Dist. Width 14.8 % (11.5-14.5); White Blood Cell Count 11.1 10^3/uL (4.8-10.8)
[2024-11-03 04:21] LABS: Blood Urea Nitrogen 14 mg/dl (7-17); Calcium 9.1 mg/dl (8.4-10.2); Carbon Dioxide 23 mmol/L (22-30); Chloride 103 mmol/L (98-107); Estimated Creatinine Clearance 89 ml/min; Glucose 211 mg/dl (70-99); Potassium 4.2 mmol/L (3.5-5.1); Sodium 138 mmol/L (135-145); eGFR > 60.00
[2024-11-03 05:39] VITALS: BMI 39.1
[2024-11-03 07:13] VITALS: BP 113/62
[2024-11-03 07:20] LABS: Glucose - Point of Care 176 mg/dl (70-99)
[2024-11-03] MEDS: IMDUR (EXTENDED RELEASE) 90 MG PO (08:09)
[2024-11-03] MEDS: NEURONTIN 600 MG PO (08:10)
[2024-11-03] MEDS: PLAVIX 75 MG PO (08:11)
[2024-11-03] MEDS: LASIX 40 MG PO (08:11)
[2024-11-03] MEDS: NORVASC 2.5 MG PO (08:11)
[2024-11-03] MEDS: PROTONIX 40 MG PO (08:11)
[2024-11-03] MEDS: LEXAPRO 20 MG PO (08:12)
[2024-11-03] MEDS: TOPROL XL 50 MG PO (08:12)
[2024-11-03] MEDS: LOW STRENGTH ASPIRIN 81 MG PO (08:12)
[2024-11-03] MEDS: NOVOLOG FLEXPEN-LOW RESISTANCE 1 UNITS SC (09:16)
[2024-11-03] MEDS: NOVOLOG FLEXPEN 10 UNITS SC (09:17)
--- NOTE | 2024-11-03 09:23 | W.PN.HOSP.TC ---
Addendum entered and electronically signed by Molina Dumont DO 11/03/24 10:03:
Cardiology okay with discharge today. Low-dose amlodipine added. Outpatient follow-up.
Original Note:
Today's Communication/Plan
-
Discharge
Assessment / Plan
Assessment / Plan
Gen-AAOx3, NAD
HEENT-NC, AT, anicteric, clear oral mm
Neck-supple
CV-reg, no M, +S1/S2
Lungs-clear B/L
Abd-soft, NT, ND
Ext-no edema
Musculoskeletal-no cyanosis, clubbing
Skin-warm and dry
Neuro-grossly non-focal
Psych-calm, cooperative
Unstable angina -symptoms resolved. Troponins negative. Underwent cardiac catheterization 11/02 showing patent stents, small vessel disease of the circumflex/OM system and RPL/RPDA. Aggressive medical management recommended. Outpatient cardiac
rehab.
Stress test 11/01 showed normal myocardial perfusion, coronary flow reserve is reduced. Moderate risk study due to pharmacologic agent used. Systolic function was normal. She did receive sublingual nitroglycerin that relieved her chest pain.
There was evidence of slight ST depression in V3 through V6 which normalized following recovery.
Echocardiogram 11/02 showed normal LV size and function, normal regional wall motion, LVEF 59%, mild concentric LVH, normal diastolic function, normal RV size and function. Aortic sclerosis without stenosis.
Chronic heart failure preserved EF -continue home dose of furosemide.
Essential hypertension -stable. Continue home meds.
DM2 with hyperglycemia -glucose 211 this morning, received 40 units of Lantus last night. Will increase Lantus to 40 units at bedtime, this is her home dose. She is on Lantus and NovoLog insulin at home. NovoLog resumed at 10 units AC.
Did not tolerate Jardiance in the past due to yeast infection and cost.
Hemoglobin A1c 8.4%. Weight loss encouraged.
Hyperlipidemia -continue atorvastatin.
COPD without exacerbation
DENNIS -continue nocturnal CPAP.
Chronic peripheral neuropathy
History of lung cancer
Morbid obesity due to excess calories -weight loss encouraged.
DNR -confirmed with patient.
Dispo -discharge home today if okay with cardiology. Outpatient follow-up.
32-minute spent in discharge process.
Anticipated Discharge: Today
Subjective/Interval History
-
Date of Service: November 03, 2024
Patient seen and examined. No complaints.
Objective Data
-
Labs:
Laboratory Results
11/03/24
03:37
WBC 11.1 H
Hgb 12.6
Hct 36.9 L
Plt Count 200
Sodium 138
Potassium 4.2
Chloride 103
Carbon Dioxide 23
BUN 14
Creatinine 0.6
Glucose 211 H
Calcium 9.1
Vital Signs:
Vital Signs
Temp Pulse Resp BP Pulse Ox
98.1 F 71 14 113/62 95
11/03/24 07:13 11/03/24 07:13 11/03/24 07:13 11/03/24 08:11 11/03/24 08:06
I&O
11/02/24 11/03/24 11/04/24
06:59 06:59 06:59
Intake Total 360 / 360 1865
Output Total 650 / 650 2024
Balance -290 / -290 -159 / -159
Review of Systems
-
History Source: Patient
All other systems: Reviewed and negative
--- NOTE | 2024-11-03 09:54 | W.PN.CARDCBS ---
Addendum entered and electronically signed by Maximo Singh MD 11/03/24 10:09:
I saw and examined the patient.
The Admitting Office Escort's note was reviewed and I agree with the note.
Comment:
GEN: No distress, awake, Ox3
HEENT: supple, anicteric, mmm
LUNGS: CTA, no wheezes/rales
CV: Reg, S1/S2, 1/6 syst LSB, no gallop
ABD: soft, BS+, NT/ND
EXT: No edema
NEURO: Gross non-focal
SKIN: No rash
Plan:
Cath results reviewed. LAD and RCA stents are patent. Continue medical therapy.
Continue aspirin, Plavix, Toprol, Imdur, lisinopril. We also added amlodipine for more antianginals.
Okay for discharge today.
Original Note:
Today's Communication / Plan
-
Patent stents and small vessel disease by cath 11/02. Plan for medical therapy
Low-dose Norvasc added to regimen of Imdur, Toprol, lisinopril
Continue aspirin, Plavix, statin
Ambulate
Okay for discharge to home today
Will arrange outpatient cardiac follow-up
Impression / Plan
-
Primary Monitoring Tech: Dr. Singh
Impression:
Unstable angina with EKG during Cardiac PET/CT stress test November 01 2024
CAD with mod to severe diffuse coronary artery calcification
Status post PCI to LAD with 2 overlapping stents in 2023
At least 50% prox RCA stenosis, guide induced prox RCA dissection s/p PCI by cath 01/29/[address] surgery in 2023
Iron def anemia
Chronic HFpEF
DM2
Peripheral neuropathy
Diabetic retinopathy
HTN
HLD
h/o lung cancer s/p RML and RLL resection in 07/1999
former tobacco use
COPD/asthma
DENNIS on CPAP
depression/anxiety
GERD
Calcific pancreatitis
essential tremor
PVD RLE
Obesity
ECHO 01/2022: EF 65 to 70%, no regional wall motion abnormalities noted, no significant valvular disease
ECHO 09/11/23: EF 60 to 65%, grade 1 diastolic dysfunction, trace MR and TR, prominent anterior fat pad, no significant change compared to prior
ECHO 11/02/24: EF 59%, mild concentric LVH, aortic sclerosis
Plan:
- She presented with chest pain and associated EKG changes during cardiac PET/CT stress test. Troponins remain negative
- Underwent cardiac catheterization 11/02/2024 with previously placed stents widely patent, and small vessel disease in the circumflex/OM system and RPL/RPDA. Reviewed results with patient 11/03. Plan for medical management, low-dose Norvasc 2.5 mg
daily added to her regimen of isosorbide, metoprolol, lisinopril
- She is without symptoms this morning. Reports has been ambulatory around room without issue
- Continue aspirin, Plavix
- Right groin site soft, clean dry and intact
- Echo with preserved EF
- She has historically not tolerated SGLT2 inhibitor due to cost as well as yeast infections
- Continue Lasix 40 mg p.o. twice daily with additional 40 mg on Thursday
- Continue high intensity lipid-lowering therapy. Goal LDL in 50s
- Strict diabetes management
- will arrange OP cardiac follow up
- ok for DC to home today
- d/w hospitalist via TT
Progress Note - Monitoring Tech
Subjective
Date of Service: November 03, 2024
No issues overnight. Eager for discharge
Objective
Labs:
11/03/24 03:37
11/03/24 03:37
Labs
Hgb 12.6 g/dL (12.0-16.0) 11/03/24 03:37
Hct 36.9 % (37.0-47.0) L 11/03/24 03:37
Plt Count 200 10^3/uL (130-400) 11/03/24 03:37
Sodium 138 mmol/L (135-145) 11/03/24 03:37
Potassium 4.2 mmol/L (3.5-5.1) 11/03/24 03:37
BUN 14 mg/dl (7-17) 11/03/24 03:37
Creatinine 0.6 mg/dL (0.6-1.0) 11/03/24 03:37
Glucose 211 mg/dl (70-99) H 11/03/24 03:37
Troponins
11/01/24 11/01/24 11/02/24
16:15 23:05 04:41
Troponin I < 0.012 < 0.012 < 0.012
11/02/24
10:30
Troponin I Cancelled
Vital Signs and I&O:
Vital Signs
Temp Pulse Resp BP Pulse Ox
98.1 F 71 14 113/62 95
11/03/24 07:13 11/03/24 07:13 11/03/24 07:13 11/03/24 08:11 11/03/24 08:06
Vital Signs
Temp Pulse Resp BP Pulse Ox
98.1 F 71 14 113/62 95
11/03/24 07:13 11/03/24 07:13 11/03/24 07:13 11/03/24 08:11 11/03/24 08:06
Intake & Output
11/01/24 11/02/24 11/03/24 11/04/24
07:59 07:59 07:59 07:59
Intake Total 360 / 360 1865 / 1865
Output Total 650 / 650 2024
Balance -290 / -290 -159 / -159
Physical Exam
Physical Exam
GEN: No distress, awake, alert, oriented x3
HEENT: supple, anicteric, mmm, EOMI
LUNGS: CTA bilaterally, no wheezes/rales
CV: Reg, S1/S2, no murmur
ABD: soft, BS+, NT/ND
EXT: No cyanosis, clubbing, edema
NEURO: Gross non-focal
SKIN: Warm, pink, dry. No rash. Right groin site clean dry and intact, soft, nontender to palpation
--- NOTE | 2024-11-03 10:11 | W.DS.TRANS ---
DC Summary - Ship Loader
-
Discharge Instructions:
Discharge Diagnosis/Procedures Unstable angina, cardiac catheterization
Diet Low Cholesterol,2 Gram Sodium
Activity As tolerated
Driving Restrictions No driving for 24 hours
Bathing Restrictions None
Specialty Instructions Weigh Daily
Instructions:
Stand-Alone Forms: DC Instructions- Cath/EP Lab
Changes to Home Medications: No
Discharge Medications:
DC Medications w/original date entered in [employer]
escitalopram oxalate 20 mg tablet 20 mg PO DAILY Mental health 11/30/15
atorvastatin 40 mg tablet 80 mg PO HS High cholesterol 01/28/22
nitroglycerin 0.4 mg sublingual tablet 0.4 mg sublingual [id number] PRN chest pain 01/28/22
pramipexole 0.25 mg tablet 0.25 mg PO HS Neurological Condition 01/28/22
clopidogrel 75 mg tablet 75 mg PO DAILY Blood clot prevention/tx #30 tabs 02/01/22
furosemide 40 mg tablet 40 mg PO QPM Fluid Retention/Swelling 09/11/23
gabapentin 600 mg tablet 600 mg PO TID Pain 09/11/23
insulin aspart U-100 100 unit/mL subcutaneous solution (Novolog U-100 Insulin aspart) 25 - 30 sliding scale dose SC AC Diabetes 09/11/23
insulin glargine 100 unit/mL (3 mL) subcutaneous pen (Lantus Solostar U-100 Insulin) 40 unit SC QPM Diabetes 09/11/23
isosorbide mononitrate 30 mg tablet,extended release 24 hr 30 mg PO DAILY Heart disease/condition 09/11/23
aspirin 81 mg tablet,delayed release 81 mg PO HS 11/01/24
dexlansoprazole 60 mg capsule,biphase delayed release 60 mg PO DAILY 11/01/24
furosemide 40 mg tablet 40 mg PO SUTUTHSA@79911/01/24
furosemide 40 mg tablet 80 mg PO MOWEFR@79911/01/24
isosorbide mononitrate 60 mg tablet,extended release 24 hr 60 mg PO DAILY 11/01/24
lisinopril 2.5 mg tablet 2.5 mg PO DAILY 11/01/24
tramadol 50 mg tablet 50 mg PO DAILY PRN mild pain 11/01/24
amlodipine 2.5 mg tablet 2.5 mg PO DAILY #30 tabs 11/03/24
metoprolol succinate 50 mg tablet,extended release 24 hr 50 mg PO DAILY #0 tabs 11/03/24
Home Medication Changes
Pending Results: No
[2024-11-03 10:54] VITALS: BP 103/81
[2024-11-03 11:00] LABS: Glucose - Point of Care 268 mg/dl (70-99)
--- NOTE | 2024-11-03 11:29 | CM ---
CM following for DC planning needs.
Met w/ patient at bedside. She is anticipating DC to home today. Offers no concerns or needs; has transport home.
Plan is for home, no needs.
--- NOTE | 2024-11-03 12:06 | PTCARENOTE ---
Pt denies nay discomfort, seen by Drs. Dumont and Gail. Telemetry and IV devices removed. Discharge instructions reviewed with pt and her sister regarding activity and driving restrictions, wound care, medications and their possible side
effects, reporting cares and concerns and follow up appt's. Very good understanding verbalized. Pt escorted out via wheelchair and discharged to home .
== END 2024-11-03 11:55 | disposition home or self-care (01) | DRG 287 ==
LOC: IVU 18:44
PROVIDERS: Emergency Medicine; Internal Medicine Interventional Cardiology; Nurse Practitioner; ADMITTING PHYSICIAN Hospitalist; CONSULT PHYSICIAN Nuclear Medicine Nuclear Cardiology; EMERGENCY PHYSICIAN Emergency Medicine; FAMILY PHYSICIAN Family Medicine
PROC: B2111ZZ Fluoroscopy of Multiple Coronary Arteries using Low Osmolar Contrast (ICD-10-PCS; 2024-11-02)
PROC: 4A023N7 Measurement of Cardiac Sampling and Pressure, Left Heart, Percutaneous Approach (ICD-10-PCS; 2024-11-02)
DX: I25.110 Atherosclerotic heart disease of native coronary artery with unstable angina pectoris (principal); I50.32 Chronic diastolic (congestive) heart failure; I11.0 Hypertensive heart disease with heart failure; E11.319 Type 2 diabetes mellitus with unspecified diabetic retinopathy without macular edema; E11.65 Type 2 diabetes mellitus with hyperglycemia; E78.00 Pure hypercholesterolemia, unspecified; J44.89 Other specified chronic obstructive pulmonary disease; D50.9 Iron deficiency anemia, unspecified; E11.40 Type 2 diabetes mellitus with diabetic neuropathy, unspecified; E11.51 Type 2 diabetes mellitus with diabetic peripheral angiopathy without gangrene; G47.33 Obstructive sleep apnea (adult) (pediatric); F32.A Depression, unspecified; F41.9 Anxiety disorder, unspecified; G43.909 Migraine, unspecified, not intractable, without status migrainosus; G25.81 Restless legs syndrome; M85.80 Other specified disorders of bone density and structure, unspecified site; K21.9 Gastro-esophageal reflux disease without esophagitis; G25.0 Essential tremor; E66.01 Morbid (severe) obesity due to excess calories; Z66 Do not resuscitate; Z68.39 Body mass index [BMI] 39.0-39.9, adult; Z95.5 Presence of coronary angioplasty implant and graft; Z87.891 Personal history of nicotine dependence; Z82.5 Family history of asthma and other chronic lower respiratory diseases; Z82.49 Family history of ischemic heart disease and other diseases of the circulatory system; Z80.9 Family history of malignant neoplasm, unspecified; Z85.118 Personal history of other malignant neoplasm of bronchus and lung; Z88.1 Allergy status to other antibiotic agents; Z88.5 Allergy status to narcotic agent; Z88.8 Allergy status to other drugs, medicaments and biological substances; Z79.82 Long term (current) use of aspirin; Z79.02 Long term (current) use of antithrombotics/antiplatelets; Z79.4 Long term (current) use of insulin; Z90.49 Acquired absence of other specified parts of digestive tract; Z90.2 Acquired absence of lung [part of]; Z86.0100 Personal history of colon polyps, unspecified
CPT/HCPCS: 80048; 80053; 82962; 83036; 84484; 85025; 85027; 93005; 93306; 93458; 94660; 99152; 99153; 99284; C1894; Q9967

== ENCOUNTER → 2024-12-13 13:56 | Outpatient (REF) | payer MEDICARE, SELFPAY | LOC: WDC 13:56 | PROVIDERS: ATTENDING PHYSICIAN Family Medicine | DX: Z12.31 Encounter for screening mammogram for malignant neoplasm of breast (principal) | CPT/HCPCS: 77063; 77067 ==

== ENCOUNTER → 2025-01-22 09:01 | Outpatient (REF) | payer MEDICARE, SELFPAY | LOC: PAVMRI 09:01 | PROVIDERS: ATTENDING PHYSICIAN Physician Assistant Surgical; FAMILY PHYSICIAN Family Medicine | DX: M47.816 Spondylosis without myelopathy or radiculopathy, lumbar region (principal) | CPT/HCPCS: 72148 ==